=== PATIENT | female | born 1995 | race Hispanic/Latino ===

== ENCOUNTER 2018-11-20 16:02 | Emergency (ER) | payer OTHER ==
[~2018-11-20] VITALS: Ht 160 cm; Wt 77.3 kg
[2018-11-20] MEDS ORDERED: MACR25CA2 PO (16:12)
[2018-11-20] MEDS ORDERED: MAGN400T PO (16:12)
[2018-11-20] MEDS ORDERED: IPRATROPIUM 0.5MG/ALBUTEROL 2.5MG INH SOL UD 3ML (DUONEB)(J7620) NEB ONE (17:15)
[2018-11-20 18:16] LABS: INFLUENZA A AMPLIFICATION NEGATIVE (NEGATIVE); INFLUENZA B AMPLIFICATION NEGATIVE (NEGATIVE)
--- NOTE | 2018-11-20 18:44 | REP ---
Urinary tract sonography: History: Right flank pain. 17 weeks of . Findings: heart rate is recorded at 141 beats per minute. Scanning at the level of the urinary bladder shows no other abnormality. Renal cortical echogenicity pattern is normal and renal contours are smooth on both sides. There is mild right-sided hydronephrosis. No calculus is seen. No left-sided hydronephrosis is noted. No cyst or mass is observed. Right renal dimensions are 10.7 x 5.9 x 4.6 cm. The left kidney measures 11.7 x 5.6 x 5.2 cm. Impression: Mild right-sided hydronephrosis and proximal right hydroureter seen. No stone is visualized. Otherwise negative. Electronically Signed by Jerel Faria MD 11/20/2018 07:23 P
[2018-11-20 18:52] LABS: HEMATOCRIT 37.4 % (36.0-47.0); HEMOGLOBIN 12.6 g/dl (12.0-15.5); MEAN CORPUSCULAR HEMOGLOBIN 29.8 pg (27.0-33.0); MEAN CORPUSCULAR HGB CONC 33.7 g/dl (32.0-36.5); MEAN CORPUSCULAR VOLUME 88.4 fl (80.0-96.0); PLATELET COUNT, AUTOMATED 222 10^3/uL (150-450); RED BLOOD COUNT 4.23 10^6/uL (4.00-5.40); WHITE BLOOD COUNT 9.3 10^3/uL (4.0-10.0)
[2018-11-20 19:03] LABS: ALBUMIN 3.1 GM/DL (3.2-5.2); ALT/SGPT 13 U/L (12-78); BILIRUBIN,DIRECT < 0.1 MG/DL (0.0-0.2); BILIRUBIN,TOTAL 0.3 MG/DL (0.2-1.0); BLOOD UREA NITROGEN 8 MG/DL (7-18); CARBON DIOXIDE LEVEL 26 MEQ/L (21-32); CHLORIDE LEVEL 108 MEQ/L (98-107); CREATININE FOR GFR 0.48 MG/DL (0.55-1.30); GLOMERULAR FILTRATION RATE > 60.0 (>60); GLUCOSE, FASTING 79 MG/DL (70-100); POTASSIUM SERUM 3.7 MEQ/L (3.5-5.1); SODIUM LEVEL 139 MEQ/L (136-145)
[2018-11-20] MEDS ORDERED: NS 1,000 ML IV ONE (19:30)
[2018-11-20] MEDS ORDERED: ACET1TAB55 PO (20:15)
[2018-11-20 20:34] VITALS: BP 127/81
== END 2018-11-20 20:36 | disposition home or self-care (01) ==
LOC: M ED 16:02
DX: O26.832 Pregnancy related renal disease, second trimester (principal); N13.30 Unspecified hydronephrosis; Z3A.17 17 weeks gestation of pregnancy; Z87.440 Personal history of urinary (tract) infections; Z79.2 Long term (current) use of antibiotics; Z79.899 Other long term (current) drug therapy

== ENCOUNTER → 2019-03-18 | Outpatient (CLI) | payer OTHER ==
[~2019-03-18] MED LIST: ACET1TAB55 PO; MACR25CA2 PO; MAGN400T PO
[2019-03-18 14:16] LABS: HEPATITIS C VIRUS ABY INDEX 0.1 INDEX (<0.8); HIV 1&2 SCREEN CENTAUR NEGATIVE (NEGATIVE)
== END ==
LOC: M SMT 09:29
PROVIDERS: ATTEND Advanced Practice Midwife
DX: Z34.83 Encounter for supervision of other normal pregnancy, third trimester (principal); Z3A.00 Weeks of gestation of pregnancy not specified

== ENCOUNTER 2019-04-10 19:46 | Outpatient (CLI) | payer OTHER ==
[~2019-04-10] VITALS: Ht 160 cm; Wt 89.4 kg
[~2019-04-10 19:46] MED LIST changes: +PREN1TAB18 PO
[2019-04-10 20:03] VITALS: BP 117/66
--- NOTE | 2019-04-10 21:12 | IPNPDOC ---
Text Note Date of Service The patient was seen on 04/10/19. NOTE Outpatient 23yo PEG 04/25/19. Presents @ 37w6d with reports of decreased FM and diarrhea. States abdomen has irregular discomfort, periumbilical that radiates to her pelvis. Denies bleeding or LOF. States the pains are irregular and quick, 3-4 x per hour. Reports the diarrhea has been persistent on and off over the past few weeks. NAD, smiling Cat I tracing, rare UC Abdomen soft, gravid, nontender Pt is reassured by movements. Scheduled for 1.5 wks. Rec immodium as directed for diarrhea warnings reviewed. Keep next appt VS,Fishbone, I+O VS, Fishbone, I+O Vital Signs Date Time Temp Pulse Resp B/P (MAP) Pulse Ox O2 Delivery O2 Flow Rate FiO2 04/10/19 20:03 98 18 117/66 (83) Lynette Rodriguez CNM Apr 10, 2019 21:12
[2019-04-20] MEDS ORDERED: PERCOCET PO (09:44)
== END 2019-04-10 21:15 | disposition home or self-care (01) ==
LOC: M LDO 19:46
PROVIDERS: ATTEND Advanced Practice Midwife
DX: O36.8131 Decreased fetal movements, third trimester, fetus 1 (principal); O26.893 Other specified pregnancy related conditions, third trimester; R19.7 Diarrhea, unspecified; Z3A.37 37 weeks gestation of pregnancy
CPT/HCPCS: 59025; G0378; G0463

== ENCOUNTER → 2019-04-14 | Outpatient (REF) | payer OTHER ==
[~2019-04-14] MED LIST changes: +IBUP80TA PO; +PERCOCET PO
== END ==
LOC: M LAB REF 17:06
PROVIDERS: ATTEND Physician Assistant
DX: N94.11 Superficial (introital) dyspareunia (principal)

== ENCOUNTER 2019-04-20 04:53 | Inpatient (IN) | payer OTHER ==
[2019-04-20] VITALS (8 sets, daily range): BP systolic 93–121; BP diastolic 46–67
[~2019-04-20] VITALS: Ht 157.5 cm; Wt 89.7 kg
[~2019-04-20 04:53] MED LIST changes: -IBUP80TA PO; -PERCOCET PO
[2019-04-20] MEDS ORDERED: LR 1,000 ML IV ONE (05:30)
[2019-04-20] MEDS ORDERED: LR 1,000 ML IV SCH ×2 (05:30→10:00)
[2019-04-20] MEDS ORDERED: BICITRA 30ML SOLN UDC PO ONE (05:30)
[2019-04-20 06:18] LABS: HEMATOCRIT 32.5 % (36.0-47.0); MEAN CORPUSCULAR HEMOGLOBIN 30.2 pg (27.0-33.0); MEAN CORPUSCULAR HGB CONC 33.8 g/dl (32.0-36.5); MEAN CORPUSCULAR VOLUME 89.3 fl (80.0-96.0); PLATELET COUNT, AUTOMATED 148 10^3/uL (150-450); RED BLOOD COUNT 3.64 10^6/uL (4.00-5.40); WHITE BLOOD COUNT 7.1 10^3/uL (4.0-10.0)
[2019-04-20] MEDS ORDERED: OXYTOCIN INJ 10 UNITS/ML VIAL (J2590) As Ordered ONE (07:12)
[2019-04-20] MEDS ORDERED: ONDANSETRON 4MG/2ML VIAL (J2405) As Ordered ONE ×2 (07:15→11:37)
[2019-04-20] MEDS ORDERED: dexameTHASONE 4 MG/ML 1ML VIAL (J1100) As Ordered ONE (07:15)
[2019-04-20] MEDS ORDERED: MORPHINE PRES-FREE INJ 10 MG/10 ML VIAL (J2274) As Ordered ONE (07:17)
[2019-04-20] MEDS ORDERED: fentaNYL 100 MCG/2 ML INJECTION (J3010) As Ordered ONE (07:36)
[2019-04-20] MEDS ORDERED: METOCLOPRAMIDE INJ 10MG/2ML VIAL (J2765) IV PRN ×2 (07:48→10:00)
[2019-04-20] MEDS ORDERED: diphenhydrAMINE INJ 50MG/ML VIAL (J1200) IV PRN (07:48)
[2019-04-20] MEDS ORDERED: ONDANSETRON 4MG/2ML VIAL (J2405) IV PRN ×2 (07:48→10:00)
[2019-04-20] MEDS ORDERED: NALOXONE INJ 0.4 MG/1 ML VIAL (J2310) IV PRN ×2 (07:48)
[2019-04-20] MEDS ORDERED: NALBUPHINE HCL 10 MG/ML AMP (J2300) IV PRN (07:48)
[2019-04-20] MEDS ORDERED: PHENYLephrine HCL 500 MCG/5 ML (100MCG/ML) SYRINGE (J2370) As Ordered ONE ×2 (08:42→09:11)
[2019-04-20] MEDS ORDERED: ePHEDrine SULFATE 25 MG/5 ML(5MG/ML) SYRINGE As Ordered ONE (08:43)
[2019-04-20] MEDS ORDERED: MIDAZOLAM INJ 2 MG/2 ML VIAL (J2250) As Ordered ONE (09:05)
[2019-04-20] MEDS ORDERED: KETOROLAC 60 MG/2 ML VIAL (J1885) As Ordered ONE (09:32)
[2019-04-20] MEDS ORDERED: OXYTOCIN DRIP 30 UNITS in APPROPRIATE DILUENT 1 EA IV SCH (09:34)
[2019-04-20] MEDS ORDERED: PERCOCET PO (09:44)
[2019-04-20] MEDS ORDERED: IBUP80TA PO (09:44)
[2019-04-20] MEDS ORDERED: DOCUSATE SODIUM 100 MG CAP PO PRN (09:45)
[2019-04-20] MEDS ORDERED: PERCOCET 5MG/325MG TAB PO PRN ×2 (09:45→10:00)
[2019-04-20] MEDS ORDERED: ACETAMINOPHEN 500 MG TAB PO PRN (09:45)
[2019-04-20] MEDS ORDERED: PROMETHAZINE 25 MG TAB PO PRN (09:45)
[2019-04-20] MEDS ORDERED: MEASLES,MUMPS,RUBELLA VACCINE INJ (MMR-II) (90707) SC SCH (09:45)
[2019-04-20] MEDS ORDERED: RHOGAM 300 MCG (1500 IU) INJ (J2790) IM SCH (09:45)
[2019-04-20] MEDS ORDERED: METOCLOPRAMIDE INJ 10MG/2ML VIAL (J2765) As Ordered ONE (09:57)
[2019-04-20] MEDS ORDERED: fentaNYL 100 MCG/2 ML INJECTION (J3010) IV PRN (10:00)
[2019-04-20] MEDS ORDERED: OXYTOCIN 30 UNITS IN 0.9% NaCl 500ML IV BAG (J2590) As Ordered ONE (10:12)
[2019-04-20 11:12] LABS: HEMATOCRIT 26.3 % (36.0-47.0); MEAN CORPUSCULAR HEMOGLOBIN 30.6 pg (27.0-33.0); MEAN CORPUSCULAR HGB CONC 33.5 g/dl (32.0-36.5); MEAN CORPUSCULAR VOLUME 91.3 fl (80.0-96.0); PLATELET COUNT, AUTOMATED 135 10^3/uL (150-450); RED BLOOD COUNT 2.88 10^6/uL (4.00-5.40)
[2019-04-20 11:19] LABS: HEMOGLOBIN 8.8 g/dl (12.0-15.5)
[2019-04-20 11:23] LABS: INR 1.25; PARTIAL THROMBOPLASTIN TIME 28.8 SECONDS (25.0-38.4); PROTHROMBIN TIME 15.4 SECONDS (11.8-14.0)
[2019-04-20] MEDS: ONDANSETRON 4MG/2ML VIAL (J2405) IV PRN ×3 (11:38→23:28)
[2019-04-20] MEDS: KETOROLAC 30 MG/ML VIAL (J1885) IV SCH ×2 (15:05→21:17)
[2019-04-20] MEDS: LR 1,000 ML IV SCH ×2 (15:05→23:00)
[2019-04-21] VITALS (12 sets, daily range): BP systolic 86–108; BP diastolic 44–71
[2019-04-21] MEDS: KETOROLAC 30 MG/ML VIAL (J1885) IV SCH (03:07)
[2019-04-21] MEDS: PERCOCET 5MG/325MG TAB PO PRN ×5 (04:17→20:17)
[2019-04-21 06:23] LABS: HEMATOCRIT 20.8 % (36.0-47.0); MEAN CORPUSCULAR HEMOGLOBIN 30.7 pg (27.0-33.0); MEAN CORPUSCULAR HGB CONC 33.7 g/dl (32.0-36.5); MEAN CORPUSCULAR VOLUME 91.2 fl (80.0-96.0); PLATELET COUNT, AUTOMATED 126 10^3/uL (150-450); RED BLOOD COUNT 2.28 10^6/uL (4.00-5.40); WHITE BLOOD COUNT 10.2 10^3/uL (4.0-10.0)
[2019-04-21] MEDS: LR 1,000 ML IV SCH (07:00)
--- NOTE | 2019-04-21 07:18 | IPNPDOC ---
Progress Note Date of Service: Apr 21, 2019 Day#: 1 Progress Note SUBJECT: Stephanie is a 23-year-old status post section x4. She has been ambulating, voiding spontaneously without issue and tolerating regular diet. She reports dizziness with movement. Breast feeding without issue. Reports lochia is like a light period. Reports pain is managed. OBJECTIVE: VITAL SIGNS: see below. Alert and oriented times three. Breath sounds clear to auscultation. Heart rate: Regular rate and rhythm, no murmurs, rubs or gallops. Abdomen: Fundus firm at U. Soft, NTTP. Dressing is clean and intact. Minimal lochia. ASSESSMENT: Postoperative day 1; acute postoperative anemia PLAN: 1. Given low blood pressures, CBC, and patient's symptoms she was typed and cross matched for 2 units of blood. Patient has consented with surgery for a blood transfusion. Risks have been reviewed with patient. 2. Continue with supportive nursing care. VS, I&O, 24H, Fishbone Vital Signs/I&O Vital Signs Date Time Temp Pulse Resp B/P (MAP) Pulse Ox O2 Delivery O2 Flow Rate FiO2 04/21/19 06:30 86/44 (58) 04/21/19 06:19 97.4 68 16 04/20/19 22:10 99 I&O- Last 24 Hours up to 6 AM 04/21/19 06:00 Intake Total 1800 ml Output Total 2125 ml Balance -325 ml Laboratory Data 24H LABS Laboratory Tests 2 04/20/19 11:02: Nucleated Red Blood Cells % (auto) 0.0, Prothrombin Time 15.4H, Prothromb Time International Ratio 1.25, Activated Partial Thromboplast Time 28.8, Fibrinogen 356 04/20/19 12:49: Serology Scanned Report Hepatitis B Testing 04/21/19 06:00: Nucleated Red Blood Cells % (auto) 0.0 CBC/BMP Laboratory Tests 04/20/19 11:02 Red Blood Count 2.88 L, Mean Corpuscular Volume 91.3, Mean Corpuscular Hemoglobin 30.6, Mean Corpuscular Hemoglobin Concent 33.5, Red Cell Distribution Width 13.0 04/21/19 06:00 Red Blood Count 2.28 L, Mean Corpuscular Volume 91.2, Mean Corpuscular Hemoglobin 30.7, Mean Corpuscular Hemoglobin Concent 33.7, Red Cell Distribution Width 13.2 TRUNG PATIÑO CNM Apr 21, 2019 07:18
[2019-04-21] MEDS: PRENATAL VITAMINS CHEWABLE TABLET PO SCH (08:17)
[2019-04-21] MEDS: IBUPROFEN 800 MG TAB PO SCH ×2 (10:38→18:46)
[2019-04-21 15:20] LABS: HEMATOCRIT 28.8 % (36.0-47.0); MEAN CORPUSCULAR HEMOGLOBIN 30.6 pg (27.0-33.0); PLATELET COUNT, AUTOMATED 150 10^3/uL (150-450); WHITE BLOOD COUNT 12.9 10^3/uL (4.0-10.0)
[2019-04-21 15:30] LABS: HEMOGLOBIN 9.8 g/dl (12.0-15.5)
[2019-04-22] MEDS: PERCOCET 5MG/325MG TAB PO PRN ×3 (00:26→11:06)
[2019-04-22 02:04] VITALS: BP 97/53
[2019-04-22] MEDS: IBUPROFEN 800 MG TAB PO SCH ×2 (03:35→11:03)
[2019-04-22 06:09] VITALS: BP 105/53
[2019-04-22] MEDS: PRENATAL VITAMINS CHEWABLE TABLET PO SCH (07:06)
--- NOTE | 2019-04-22 14:56 | DSES ---
DATE OF ADMISSION: 04/20/2019 DATE OF DISCHARGE: 04/22/2019 HISTORY: 24-year-old 4, para 3 female at 39-0/7 weeks gestation presents for repeat section as well as tubal ligation. She has a history of three prior sections. HOSPITAL COURSE: The patient was admitted on 04/20/2019 where she underwent a repeat section and tubal ligation, for a 7 pound 3 ounce female infant. Surgery was notable for a peritoneal window in the lower uterine segment with the placenta protruding through. Estimated blood loss was 1000 mL at the time of the procedure. Her postoperative course was significant for anemia with a hemoglobin of 7 g/dL. She received a transfusion of 2 units of blood. Her post transfusion hemoglobin was 9.8 g/dL. She had adequate return of bowel and bladder function. She was deemed stable for discharge on postoperative day 2. ADMISSION DIAGNOSIS: at 39 weeks, prior section times three. DISCHARGE DIAGNOSIS: Delivered. PROCEDURES: Repeat low transverse section. Bilateral tubal ligation. DISPOSITION: Patient to follow-up with Dr. Kim in two weeks. Instructions reviewed.
== END 2019-04-22 11:15 | disposition home or self-care (01) | DRG 784 ==
LOC: M LDI 04:53 → M OBS 12:10
PROVIDERS: ADMIT Obstetrics & Gynecology; ATTEND Obstetrics & Gynecology
PROC: 0UB70ZZ Excision of Bilateral Fallopian Tubes, Open Approach (ICD-10-PCS; 2019-04-20)
PROC: 10D00Z1 Extraction of Products of Conception, Low, Open Approach (ICD-10-PCS; principal; 2019-04-20 07:30)
PROC: 30233N1 Transfusion of Nonautologous Red Blood Cells into Peripheral Vein, Percutaneous Approach (ICD-10-PCS; 2019-04-21)
DX: O34.211 Maternal care for low transverse scar from previous cesarean delivery (principal); D62 Acute posthemorrhagic anemia; Z37.0 Single live birth; Z3A.39 39 weeks gestation of pregnancy; Z30.2 Encounter for sterilization; O99.03 Anemia complicating the puerperium

== ENCOUNTER → 2020-08-16 | Outpatient (CLI) | payer OTHER ==
[~2020-08-16] MED LIST changes: +IBUP80TA PO; -MAGN400T PO; +MAGN400T3 PO; +PERCOCET PO
[2020-08-16 13:43] LABS: BASO % 0.7 % (0.0-1.0); EOS % 0.7 % (0.0-3.0); HEMATOCRIT 41.8 % (36.0-47.0); HEMOGLOBIN 13.2 g/dl (12.0-15.5); LYMPH # 1.4 10^3/uL (1.5-5.0); LYMPH % 29.3 % (24.0-44.0); MEAN CORPUSCULAR HEMOGLOBIN 28.3 pg (27.0-33.0); MEAN CORPUSCULAR HGB CONC 31.6 g/dl (32.0-36.5); MEAN CORPUSCULAR VOLUME 89.7 fl (80.0-96.0); MONO # 0.5 10^3/uL (0.0-0.8); NEUTROPHILS # 2.7 10^3/uL (1.5-8.5); NEUTROPHILS % 59.1 % (36.0-66.0); PLATELET COUNT, AUTOMATED 209 10^3/uL (150-450); RED BLOOD COUNT 4.66 10^6/uL (4.00-5.40); WHITE BLOOD COUNT 4.6 10^3/uL (4.0-10.0)
[2020-08-16 14:17] LABS: ALBUMIN 4.2 GM/DL (3.2-5.2); ALT/SGPT 11 U/L (12-78); BILIRUBIN,TOTAL 0.5 MG/DL (0.2-1.0); BLOOD UREA NITROGEN 8 MG/DL (7-18); CALCIUM LEVEL 9.4 MG/DL (8.5-10.1); CARBON DIOXIDE LEVEL 28 MEQ/L (21-32); CHLORIDE LEVEL 108 MEQ/L (98-107); CREATININE FOR GFR 0.72 MG/DL (0.55-1.30); FERRITIN 36 NG/ML (8-252); FREE T4 1.05 NG/DL (0.76-1.46); GLOMERULAR FILTRATION RATE > 60.0 (>60); GLUCOSE, FASTING 95 MG/DL (70-100); IRON (FE) 88 UG/DL (50-170); PERCENT SATURATION 27.9 % (13.2-45.0); POTASSIUM SERUM 4.8 MEQ/L (3.5-5.1); SODIUM LEVEL 138 MEQ/L (136-145); THYROID STIMULATING HORMONE 0.999 uIU/ML (0.358-3.740); TOTAL IRON BINDING CAPACITY 315 UG/DL (250-450); TOTAL PROTEIN 7.5 GM/DL (6.4-8.2)
[2020-08-16 14:20] LABS: FOLATE 22.9 NG/ML; VITAMIN B12 LEVEL 614 PG/ML
[2020-08-17 21:15] LABS: ANA (HEP2) Negative (.); TISSUE TRANSGLUTAMINASE IgA <2 U/mL (0-3); TISSUE TRANSGLUTAMINASE IgG <2 U/mL (0-5)
== END ==
LOC: M PLALAB 09:21
PROVIDERS: ATTEND Physician Assistant
DX: R53.83 Other fatigue (principal)

== ENCOUNTER → 2020-08-22 | Outpatient (CLI) | payer OTHER ==
--- NOTE | 2020-08-22 14:44 | REPPI ---
INDICATION: M79.672 PAIN IN LEFT FOOT. Stubbing injury 3rd 4th and 5th toes. COMPARISON: None. TECHNIQUE: Four views. FINDINGS: Four views of the left foot demonstrate normal bones, joints, and soft tissues. No fracture or subluxation is seen. No opaque foreign body noted. IMPRESSION: Negative left foot series. <Electronically signed by Fabrice Faria > 08/22/20 3125
== END ==
LOC: M PLAIMG 13:37
PROVIDERS: ATTEND Physician Assistant
DX: M79.672 Pain in left foot (principal)

== ENCOUNTER → 2020-10-06 | Outpatient (REF) | payer OTHER | LOC: M LAB REF 16:42 | PROVIDERS: ATTEND Physician Assistant | DX: R43.9 Unspecified disturbances of smell and taste (principal) ==

== ENCOUNTER 2021-07-28 17:57 | Emergency (ER) | payer OTHER ==
[~2021-07-28] VITALS: Ht 160 cm; Wt 70.9 kg
[~2021-07-28 17:57] MED LIST changes: -CIPR-249 PO; -CIPR250T3 PO; -TRAM50TA2 PO
--- OUTSIDE RECORDS SUMMARY | 2021-07-28 18:13 | CCD | Continuity of Care Document ---
Author Author Regina LOVELL Organization [place] [address] Phone [phone] Care Team Providers Care Treatment Coordinator Name Role Phone Kimberly Galicia D.O. AUTM Eulalia Lugo NP AUTM [phone] Problems Description No Information Available Social History Type Date Description Comments Sex Unknown ETOH Use Denies alcohol use Tobacco Use Start: Unknown Patient has never smoked Recreational Drug Use Denies Drug Use Exercise Type/Frequency Walks daily Sun Exposure Uses sunscreen Seat Belt/Car Seat Always uses seat belt Allergies and adverse reactions Description No Known Drug Allergies Medications Active Medications SIG Qnty Indications Ordering Provide r Date Tablets 1 by lorna th every day Unknown Medications Administered in Office Medication SIG Qnty Indications Ordering Provider Date Injection Ketorolac Tromethamine Per 15 MG (Toradol) Injection SIDDHARTHA Belcher 10/06/2020 Injection Ketorolac Tromethamine Per 15 MG (Toradol) Injection SIDDHARTHA Belcher 10/06/2020 Immunizations Description No Information Available Vital Signs Date Vital Result Comment 06/28/2021 2:23pm BP Systolic 128 mmHg BP Diastolic 68 mmHg Height 61.0 inches 5'1" Weight 167.38 lb BMI (Body Mass Index) 31.6 kg/m2 Heart Rate 88 /min Respiratory Rate 12 /min Body Temperature 98.2 F O2 % BldC Oximetry 98 % [place] Body Weight 105 lb 06/06/2021 1:22pm BP Systolic 118 mmHg BP Diastolic 76 mmHg Height 61.0 inches 5'1" Weight 165.00 lb BMI (Body Mass Index) 31.2 kg/m2 Heart Rate 76 /min Respiratory Rate 20 /min Body Temperature 98.6 F O2 % BldC Oximetry 99 % [place] Body Weight 105 lb Results Description No Information Available Procedures Date Code Description Status 06/28/2021 09416 Office/Outpatient Established Lo w MDM 20-29 Min Completed 06/06/2021 47278 Preventive Visit Est 18-39 Yrs C ompleted 05/12/2021 00675 Office/Outpatient Established Lo w MDM 20-29 Min Completed Medical Devices Description No Information Available Encounters Type Date Location Provider Dx Diagnosis Office Visit 06/28/2021 2:30p [facility] SIDDHARTHA Turcios L65.9 Nonscarring hair loss, unspe cified R51.9 Headache, unspecified R42 Dizziness and giddiness F53.0 depression G47.8 Other sleep disorders Office Visit 06/06/2021 1:15p [facility] SIDDHARTHA Turcios Z00.00 Encntr for general adult med ical exam w/o abnormal findings Office Visit 05/12/2021 11:00a [facility] SIDDHARTHA Turcios L72.0 Epidermal cyst Assessments Date Code Description Provider 06/28/2021 L65.9 Nonscarring hair loss, unspecifi ed SIDDHARTHA Turcios 06/28/2021 R51.9 Headache, unspecified SIDDHARTHA Scruggs 06/28/2021 R42 Dizziness and giddiness SIDDHARTHA Turcios 06/28/2021 F53.0 depression SIDDHARTHA Scruggs 06/28/2021 G47.8 Other sleep disorders SIDDHARTHA Scruggs 06/06/2021 Z00.00 Encounter for genera l adult medical examination without abnormal findings SIDDHARTHA Turcios 05/12/2021 L72.0 Epidermal cyst SIDDHARTHA Turcios Plan of Treatment Future Appointment(s):* 01/16/2022 10:00 am - SIDDHARTHA Turcios at [facility] * 07/06/2021 2:00 pm - Kimberly Galicia D.O. at [facility] Functional Status Description No Information Available Mental Status Description No Information Available Referrals Description No Information Available
--- OUTSIDE RECORDS SUMMARY | 2021-07-28 18:13 | CCD | Continuity of Care Document ---
Author Author Regina LOVELL Organization Unknown [place] [address] Phone [phone] Care Team Providers Care Traffic Personnel Supervisor Name Role Phone Kimberly Galicia D.O. AUTM [phone] Eulalia Lugo NP AUTM [phone] Problems Description No Information Available Social History [...] F O2 % BldC Oximetry 98 % [place] Body Weight 105 lb 06/06/2021 1:22pm BP Systolic 118 mmHg BP Diastolic 76 mmHg Height 61.0 inches 5'1" Weight 165.00 lb BMI (Body Mass Index) 31.2 kg/m2 Heart Rate 76 /min Respiratory Rate 20 /min Body Temperature 98.6 F O2 % BldC Oximetry 99 % [place] Body Weight 105 lb Results Description No Information Available Procedures Date Code Description Status 06/28/2021 29107 Office/Outpatient Established Lo w MDM 20-29 Min Completed 06/06/2021 19699 Preventive Visit Est 18-39 Yrs C ompleted 05/12/2021 30005 Office/Outpatient Established Lo w MDM 20-29 Min Completed Medical Devices Description No Information Available Encounters Type Date Location Provider Dx Diagnosis Office Visit 06/28/2021 2:30p [facility] SIDDHARTHA Turcios L65.9 Nonscarring hair loss, unspe cified R51.9 Headache, unspecified R42 Dizziness and giddiness F53.0 depression G47.8 Other sleep disorders Office Visit 06/06/2021 1:15p [facility] SIDDHARTHA Turcios Z00.00 Encntr for general adult med ical exam w/o abnormal findings Office Visit 05/12/2021 11:00a [facility] SIDDHARTHA Turcios L72.0 Epidermal cyst Assessments [...] 01/16/2022 10:00 am - SIDDHARTHA Turcios at [facility] * 07/06/2021 2:00 pm - Kimberly Galicia D.O. at [facility] Functional Status Description No Information Available Mental Status Description No Information Available Referrals Description No Information Available
--- OUTSIDE RECORDS SUMMARY | 2021-07-28 18:13 | CCD | Continuity of Care Document ---
Author Author Regina LOVELL Organization [place] [address] Phone [phone] Care Team Providers Care Radiologist Name Role Phone Kimberly Galicia D.O. AUTM [phone] Eulalia Lugo NP AUTM [phone] Problems Description No Information Available Social History Type Date Description Comments Sex Unknown ETOH Use Denies alcohol use Tobacco Use Start: Unknown Patient has never smoked Recreational Drug Use Denies Drug Use Exercise Type/Frequency Walks daily Sun Exposure Uses sunscreen Seat Belt/Car Seat Always uses seat belt Allergies, Adverse Reactions, Alerts Description No Known Drug Allergies Medications Active [...] Available Vital Signs Date Vital Result Comment 06/06/2021 1:22pm BP Systolic 118 mmHg BP Diastolic 76 mmHg Height 61.0 inches 5'1" Weight 165.00 lb BMI (Body Mass Index) 31.2 kg/m2 Heart Rate 76 /min Respiratory Rate 20 /min Body Temperature 98.6 F O2 % BldC Oximetry 99 % [place] Body Weight 105 lb 05/12/2021 11:05am BP Systolic 114 mmHg BP Diastolic 72 mmHg Height 61.0 inches 5'1" Weight 163.25 lb BMI (Body Mass Index) 30.8 kg/m2 Heart Rate 77 /min Respiratory Rate 18 /min Body Temperature 99.1 F O2 % BldC Oximetry 100 % [place] Body Weight 105 lb Results Description No Information Available Procedures Date Code Description Status 06/06/2021 60448 Preventive Visit Est 18-39 Yrs C ompleted 05/12/2021 81503 Office/Outpatient Established Lo w MDM 20-29 Min Completed 12/27/2020 60417 Office/Outpatient Established Lo w MDM 20-29 Min Completed Medical Devices Description No Information Available Encounters Type Date Location Provider Dx Diagnosis Office Visit 06/06/2021 1:15p [facility] SIDDHARTHA Turcios Z00.00 Encntr for general adult med ical exam w/o abnormal findings Office Visit 05/12/2021 11:00a [facility] SIDDHARTHA Turcios L72.0 Epidermal cyst Office Visit 12/27/2020 2:30p [facility] SIDDHARTHA Turcios L65.9 Nonscarring hair loss, unspe cified Assessments Date Code Description Provider 06/06/2021 Z00.00 Encounter for genera l adult medical examination without abnormal findings SIDDHARTHA Turcios 05/12/2021 L72.0 Epidermal cyst SIDDHARTHA Turcios 12/27/2020 L65.9 Nonscarring hair loss, unspecifi ed SIDDHARTHA Turcios Plan of Treatment Future Appointment(s):* 01/16/2022 10:00 am - SIDDHARTHA Turcios at [facility] * 07/06/2021 2:00 pm - Kimberly Galicia D.O. at [facility] Functional Status Description No Information Available Mental Status Description No Information Available Referrals Refer to Reason for Referral Status Appt Date Eulalia Lugo NP Regina has diffuse hair th inning to the scalp and has tried Spironolactone, and many other OTC supplements without improvement. Please evaluate and treat. Closed [facility] [address], [address] [facility] [address] [place] [address] [phone]
--- OUTSIDE RECORDS SUMMARY | 2021-07-28 18:13 | CCD | Continuity of Care Document ---
Author Author Regina LOVELL Organization [place] [address] Phone [phone] Care Team Providers Care Mobile Product Manager Name Role Phone Kimberly Galicia D.O. AUTM Eulalia Lugo NP AUTM [phone] Problems Description No Information Available Social History [...] F O2 % BldC Oximetry 98 % [place] Body Weight 105 lb 06/06/2021 1:22pm BP Systolic 118 mmHg BP Diastolic 76 mmHg Height 61.0 inches 5'1" Weight 165.00 lb BMI (Body Mass Index) 31.2 kg/m2 Heart Rate 76 /min Respiratory Rate 20 /min Body Temperature 98.6 F O2 % BldC Oximetry 99 % [place] Body Weight 105 lb Results Description No Information Available Procedures Date Code Description Status 06/28/2021 17008 Office/Outpatient Established Lo w MDM 20-29 Min Completed 06/06/2021 73085 Preventive Visit Est 18-39 Yrs C ompleted 05/12/2021 37158 Office/Outpatient Established Lo w MDM 20-29 Min Completed Medical Devices Description No Information Available Encounters Type Date Location Provider Dx Diagnosis Office Visit 06/28/2021 2:30p [facility] SIDDHARTHA Turcios L65.9 Nonscarring hair loss, unspe cified R51.9 Headache, unspecified R42 Dizziness and giddiness F53.0 depression G47.8 Other sleep disorders Office Visit 06/06/2021 1:15p [facility] SIDDHARTHA Turcios Z00.00 Encntr for general adult med ical exam w/o abnormal findings Office Visit 05/12/2021 11:00a [facility] SIDDHARTHA Turcios L72.0 Epidermal cyst Assessments [...] Turcios at [facility] * 07/06/2021 2:00 pm - Kimberly Galicia D.O. at [facility] Functional Status Description No Information Available Mental Status Description No Information Available Referrals Description No Information Available
--- OUTSIDE RECORDS SUMMARY | 2021-07-28 18:14 | CCD | Continuity of Care Document ---
Author Author Regina LOVELL Organization [place] [address] Phone [phone] Care Team Providers Care Weatherization And Housing Inspector Name Role Phone Kimberly Galicia D.O. AUTM [phone] Eulalia Lugo NP AUTM [phone] Problems Description No Information Available Social History [...] F O2 % BldC Oximetry 99 % [place] Body Weight 105 lb 05/12/2021 11:05am BP Systolic 114 mmHg BP Diastolic 72 mmHg Height 61.0 inches 5'1" Weight 163.25 lb BMI (Body Mass Index) 30.8 kg/m2 Heart Rate 77 /min Respiratory Rate 18 /min Body Temperature 99.1 F O2 % BldC Oximetry 100 % [place] Body Weight 105 lb Results Description No Information Available Procedures Date Code Description Status 06/06/2021 47293 Preventive Visit Est 18-39 Yrs C ompleted 05/12/2021 14986 Office/Outpatient Established Lo w MDM 20-29 Min Completed 12/27/2020 23489 Office/Outpatient Established Lo w MDM 20-29 Min Completed Medical Devices Description No Information Available Encounters Type Date Location Provider Dx Diagnosis Office Visit 06/06/2021 1:15p Family [facility] SIDDHARTHA Turcios Z00.00 Encntr for general adult med ical exam w/o abnormal findings Office Visit 05/12/2021 11:00a [facility] SIDDHARTHA Turcios L72.0 Epidermal cyst Office Visit 12/27/2020 2:30p [facility] SIDDHARTHA Turcios L65.9 Nonscarring hair loss, unspe cified Assessments Date Code Description Provider 06/06/2021 Z00.00 Encounter for genera l adult medical examination without abnormal findings SIDDHARTHA Turcios 05/12/2021 L72.0 Epidermal cyst SIDDHARTHA Turcios 12/27/2020 L65.9 Nonscarring hair loss, unspecifi ed SIDDHARTHA Turcios Plan of Treatment Future Appointment(s):* 01/16/2022 10:00 am - SIDDHARTHA Turcios at [facility] * 07/06/2021 2:00 pm - Kimberly Galicia D.O. at [facility] 06/06/2021 - SIDDHARTHA Turcios* Z00.00 Encounter for general adult medical examination without abnormal findings* Comments:* normal exam * Follow up:* PAP with and January before PCS Functional Status Description No Information Available Mental Status Description No Information Available Referrals Refer to Reason for Referral Status Appt Date Eulalia Lugo NP Regina has diffuse hair th inning to the scalp and has tried Spironolactone, and many other OTC supplements without improvement. Please evaluate and treat. Closed [facility] [address], [address] [facility] [address] [place] [address] [phone]
--- OUTSIDE RECORDS SUMMARY | 2021-07-28 18:14 | CCD | Continuity of Care Document ---
Author Regina Villegas Organization [place] [address] Phone [phone] Care Team Providers Care Recycling Manager Name Role Phone Kimberly Galicia D.O. AUTM Eulalia Lugo NP AUTM [phone] Problems Description No Information Available Social History [...] SIG Qnty Indications Ordering Provide r Date Butalbital/Acetaminophen/Caffeine 50-325-40mg Capsules Take one to two tablets by mouth ever 6 hours as needed for relief of migraine. 30caps Kimberly Galicia D.O. 10/07 Spironolactone 50mg Tablets 1 by mouth every day 90tabs L65.9 Kimberly Galicia D.O. 09/28 Meclizine HCL 12.5mg Tablets take 1-2 tablets by mouth ever 8 hours as needed for dizziness 90tabs R42 Kimberly Irwin D.O. 08/15/2020 Tablets 1 by lorna th every day Unknown Magnesium 400mg Tablets take one tablet by mouth before bed. Unknown Biotin 5mg Capsules Unknown Medications Administered in Office Medication SIG Qnty Indications Ordering Provider Date Injection Ketorolac Tromethamine Per 15 MG (Toradol) Injection SIDDHARTHA Belcher 10/06/2020 Injection Ketorolac Tromethamine Per 15 MG (Toradol) Injection SIDDHARTHA Belcher 10/06/2020 Immunizations Description No Information Available Vital Signs Date Vital Result Comment 05/12/2021 11:05am BP Systolic 114 mmHg BP Diastolic 72 mmHg Height 61.0 inches 5'1" Weight 163.25 lb BMI (Body Mass Index) 30.8 kg/m2 Heart Rate 77 /min Respiratory Rate 18 /min Body Temperature 99.1 F O2 % BldC Oximetry 100 % [place] Body Weight 105 lb 12/27/2020 2:30pm BP Systolic 108 mmHg BP Diastolic 70 mmHg Height 61.0 inches 5'1" Weight 152.38 lb BMI (Body Mass Index) 28.8 kg/m2 Heart Rate 78 /min Respiratory Rate 18 /min Body Temperature 97.8 F O2 % BldC Oximetry 99 % [place] Body Weight 105 lb Results Description No Information Available Procedures Date Code Description Status 05/12/2021 11591 Office/Outpatient Established Lo w MDM 20-29 Min Completed 12/27/2020 86964 Office/Outpatient Established Lo w MDM 20-29 Min Completed Medical Devices Description No Information Available Encounters Type Date Location Provider Dx Diagnosis Office Visit 05/12/2021 11:00a Family [facility] SIDDHARTHA Turcios L72.0 Epidermal cyst Office Visit 12/27/2020 2:30p [facility] SIDDHARTHA Turcios L65.9 Nonscarring hair loss, unspe cified Assessments Date Code Description Provider 05/12/2021 L72.0 Epidermal cyst SIDDHARTHA Turcios 12/27/2020 L65.9 Nonscarring hair loss, unspecifi ed SIDDHARTHA Turcios Plan of Treatment 05/12/2021 - SIDDHARTHA Turcios* L72.0 Epidermal cyst* Comments:* Small cyst punctured with needle and cyst decompressed. Please dressing in place for the next few hours before removing Functional Status Description No Information Available Mental Status Description No Information Available Referrals Refer to Reason for Referral Status Appt Date Eulalia Lguo NP Regina has diffuse hair th inning to the scalp and has tried Spironolactone, and many other OTC supplements without improvement. Please evaluate and treat. Closed [facility] [address], [address] [facility] [address] [place] [address] [phone]
--- OUTSIDE RECORDS SUMMARY | 2021-07-28 18:14 | CCD ---
Author Author [facility] Organization [facility] Address Unknown Phone Unavailable Care Team Providers Care Cattle Killer Name Role Phone O'lazara, A Jordan PA Unavailable Unavailable O'lazara, A Jordan PA Unavailable Unavailable O'lazara, A Jordan PA Unavailable Unavailable O'lazara, A Jordan PA Unavailable Unavailable O'lazara, A Jordan PA Unavailable Unavailable O'lazara, A Jordan PA Unavailable Unavailable O'lazara, A Jordan PA Unavailable Unavailable O'lazara, A Jordan PA Unavailable Unavailable O'lazara, A Jordan PA Unavailable Unavailable O'lazara, A Jordan PA Unavailable Unavailable O'lazara, A Jordan PA Unavailable Unavailable O'lazara, A Jordan PA Unavailable Unavailable O'lazara, A Jordan PA Unavailable Unavailable O'lazara, A Jordan PA Unavailable Unavailable O'lazara, A Jordan PA Unavailable Unavailable O'lazara, A Jordan PA Unavailable Unavailable O'lazara, A Jordan PA Unavailable Unavailable O'lazara, A Jordan PA Unavailable Unavailable O'lazara, A Jordan PA Unavailable Unavailable O'lazara, A Jordan PA Unavailable Unavailable O'lazara, A Jordan PA Unavailable Unavailable O'lazara, A Jordan PA Unavailable Unavailable O'lazara, A Jordan PA Unavailable Unavailable O'lazara, A Jordan PA Unavailable Unavailable O'lazara, A Jordan PA Unavailable Unavailable O'lazara, A Jordan PA Unavailable Unavailable O'lazara, A Jordan PA Unavailable Unavailable O'lazara, A Jordan PA Unavailable Unavailable O'lazara, A Jordan PA Unavailable Unavailable O'lazara, A Jordan PA Unavailable Unavailable O'lazara, A Jordan PA Unavailable Unavailable O'lazara, A Jordan PA Unavailable Unavailable O'lazara, A Jordan PA Unavailable Unavailable Re-disclosure Warning The records that you are about to access may contain information from federally-assisted alcohol or drug abuse programs. If such information is present, then the following federally mandated warning applies: This information has been disclosed to you from records protected by federal confidentiality rules (42 CFR part 2). The federal rules prohibit you from making any further disclosure of this information unless further disclosure is expressly permitted by the written consent of the person to whom it pertains or as otherwise permitted by 42 CFR part 2. A general authorization for the release of medical or other information is NOT sufficient for this purpose. The Federal rules restrict any use of the information to criminally investigate or prosecute any alcohol or drug abuse patient.The records that you are about to access may contain highly sensitive health information, the redisclosure of which is protected by Article 27-F of the [facility] Public Health law. If you continue you may have access to information: Regarding HIV / AIDS; Provided by facilities licensed or operated by the [facility] Office of Mental Health; or Provided by the [facility] Office for People With Developmental Disabilities. If such information is present, then the following [facility] mandated warning applies: This information has been disclosed to you from confidential records which are protected by state law. State law prohibits you from making any further disclosure of this information without the specific written consent of the person to whom it pertains, or as otherwise permitted by law. Any unauthorized further disclosure in violation of state law may result in a fine or custodial sentence or both. A general authorization for the release of medical or other information is NOT sufficient authorization for further disc losure. Family History Family Member Name Family Member Gender Family Member Status Date o f Status Description Data Source(s) Unknown Male Problem [facility] ([facility]) Encounters Encounter Providers Location Date Indications Data Source(s ) Outpatient Attender: Jordan CARL [facility] 06/28/2021 02:30:00 PM EDT [facility] ([facility]) Outpatient Attender: Jordan CARL [facility] 06/06/2021 01:15:00 PM EDT [facility] ([facility]) Outpatient Attender: Jordan CARL [facility] 05/12/2021 11:00:00 AM EDT [facility] ([facility]) Outpatient Attender: Jordan CARL [facility] 12/27/2020 02:30:00 PM EDT [facility] ([facility]) Outpatient Attender: Jordan CARL [facility] 10/06/2020 02:50:00 PM EST [facility] ([facility]) Outpatient Attender: Jordan CARL [facility] 09/28/2020 12:30:00 PM EST [facility] ([facility]) Outpatient Attender: Jordan CARL [facility] 08/22/2020 12:00:00 PM EST [facility] ([facility]) Outpatient Attender: Jordan CARL [facility] 08/15/2020 01:00:00 PM EST [facility] ([facility]) Medications Medication Brand Name Start Date Product Form Dose Route Admi nistrative Instructions Pharmacy Instructions Status Indications Reaction Description Data Source(s) Acetaminophen 325 MG / butalbital 50 MG / Caffeine 40 MG Oral Capsule Butalbital/Acetaminophen/Caffeine 10/07/2020 12:00:00 AM EST ORAL active [facility] ([facility]) Injection Ketorolac Tromethamine Per 15 MG (Toradol) 10/06/2020 12:00:00 AM EST completed [facility] ([facility]) Medication administered onsite Injection Ketorolac Tromethamine Per 15 MG (Toradol) 10/06/2020 12:00:00 AM EST completed [facility] ([facility]) Medication administered onsite Zolpidem tartrate 10 MG Oral Tablet [Ambien] Ambien 12:00:00 AM EST ORAL completed [facility] ([facility]) Spironolactone 50 MG Oral Tablet Spironolactone 09/28/2020 12:00:00 A M EST ORAL active [facility] ([facility]) No Active Medications 08/15/2020 12:00:00 AM EST completed [facility] ([facility]) Meclizine Hydrochloride 12.5 MG Oral Tablet Meclizine HCL 08/15/2020 12:00:00 AM EST ORAL active [facility] ([facility]) Insurance Providers Payer name Policy type / Coverage type Policy ID Covered libertarian ID Covered libertarian's relationship to crowell Policy Crowell Plan Information [facility] [id number] [facility] Commercial [id number] Self [id number] [facility] [id number] [facility] [id number] Problems, Conditions, and Diagnoses No Information Surgeries/Procedures Procedure Description Date Indications Data Source(s) OFFICE OUTPATIENT VISIT 15 MINUTES 06/28/2021 12:00:00 AM EDT [facility] ([facility]) PERIODIC PREVENTIVE MED EST PATIENT 18-39 YRS 06/06/20 12:00:00 AM EDT [facility] ([facility]) OFFICE OUTPATIENT VISIT 15 MINUTES 05/12/2021 12:00:00 AM EDT [facility] ([facility]) OFFICE OUTPATIENT VISIT 15 MINUTES 12/27/2020 12:00:00 AM EDT [facility] ([facility]) Remove Impact Cerumen Irrigati 08/15/2020 12:00:00 AM EST [facility] ([facility]) Results ID Date Data Source [id number] 10/06/2020 03:20:00 PM EST [facility] ([facility]) Name Value Range Interpretation Code Description Data Zeynep rce(s) Supporting Document(s) Respiratory Panel Laboratory test result [facility] ([facility]) This respiratory PCR panel detects Influ tip A H1, H3 and 2009 H1 viruses, Influenza B virus, Resp iratory Syncytial Virus, Human metapneumovirus, Parainfluenza virus 1, 2, 3 and 4, Adenovirus, Rhinovirus/Enterovirus, Coronavirus HKU1, NL63, OC43, 229E and SARS-CoV-2 (COVID 19), Bordetella pertussis, Bordetella parapertussis, Mycoplasma pneumoniae and Chlamydia pneumoniae. NEGATIVE by MULTIPLEXED NUCLEIC ACID PCR SARS-CoV-2 (COVID 19) NEGATIVE - SARS-CoV-2 (COVID19) ID Date Data Source [id number] 10/06/2020 03:20:00 PM EST [facility] Name Value Range Interpretation Code Description Data Zeynep rce(s) Supporting Document(s) SARS-CoV-2 (COVID 19) NEGATIVE - SARS-CoV-2 (COVID19) [facility] This lab was ordered by [facility] a nd reported by [facility]. ID Date Data Source [id number] 08/16/2020 01:55:00 PM EST [facility] ([facility]) Name Value Range Interpretation Code Description Data Zeynep rce(s) Supporting Document(s) Tissue transglutaminase IgG Ab [Units/volume] in Serum Labor atory test result 0-5 Normal (applies to non-numeric results) [facility] ([facility]) Negative 0 - 5 Weak Positive 6 - 9 Positive >9 Tissue transglutaminase IgA Ab [Units/volume] in Serum Labor atory test result 0-3 Normal (applies to non-numeric results) [facility] ([facility]) Negative 0 - 3 Weak Positive 4 - 10 Positive >10 . Tissue Transglutaminase (tTG) has been identified as the endomysial antigen. Studies have demonstr- ated that endomysial IgA antibodies have over 99% specificity for gluten sensitive enteropathy. IgA [Mass/volume] in Serum or Plasma 306.0 mg/dL 70-400 Normal (applies to non- numeric results) [facility] ([facility]) ID Date Data Source [id number] 08/16/2020 01:55:00 PM EST [facility] ([facility]) Name Value Range Interpretation Code Description Data Zeynep rce(s) Supporting Document(s) Vitamin B12 Level 614 pg/mL Normal (applies to non-numeri c results) [facility] ([facility]) VITAMIN B12 NORMAL RANGE NORMAL 247 - 911 PG/ML INDETERMINATE 211 - 246 PG/ML DEFICIENT LESS THAN 211 PG/ML Folate 22.9 ng/mL Normal (applies to non-numeric resul ts) [facility] ([facility]) FOLATE NORMAL RANGE NORMAL GREATER THAN 5.4 NG/ML INDETERMINATE 3.4-5.4 NG/ML DEFICIENT LESS THAN 3.4 NG/ML ID Date Data Source [id number] 08/16/2020 01:55:00 PM EST [facility] ([facility]) Name Value Range Interpretation Code Description Data Zeynep rce(s) Supporting Document(s) Aspen (Hep2) Laboratory test result Normal (applies to non-n umeric results) [facility] ([facility]) <content>Negative <1:80</content>
<content>Borderline 1:80</content>
<content>Positive >1:80</content>
<content>Performed at: [facility]</content>
<content>[address], [place] [id number]</content>
<content>[employer]: Dulce Contreras MD, Phone: [phone]</content>
<content></content> ID Date Data Source [id number] 08/16/2020 01:55:00 PM EST [facility] ([facility]) Name Value Range Interpretation Code Description Data Zeynep rce(s) Supporting Document(s) Thyroid Stimulating Hormone 0.999 uIU/ML 0.358-3.740 Norm al (applies to non- numeric results) [facility] ([facility]) Free T4 1.05 ng/dL 0.76-1.46 Normal (applies to non-numeric resul ts) [facility] ([facility]) ID Date Data Source [id number] 08/16/2020 01:55:00 PM EST [facility] ([facility]) Name Value Range Interpretation Code Description Data Zeynep rce(s) Supporting Document(s) Ferritin [Mass/volume] in Serum or Plasma 36 ng/mL 8-252 Normal (applies to non- numeric results) [facility] ([facility]) ID Date Data Source [id number] 08/16/2020 01:55:00 PM EST [facility] ([facility]) Name Value Range Interpretation Code Description Data Zeynep rce(s) Supporting Document(s) Iron (Fe) 88 ug/dL 50-170 Normal (applies to non-numeric resul ts) [facility] ([facility]) Total Iron Binding Capacity 315 ug/dL 250-450 Norm al (applies to non-numeric results) [facility] ([facility]) Percent Saturation 27.9 % 13.2-45.0 Normal (applies to non-numer ic results) [facility] ([facility]) ID Date Data Source [id number] 08/16/2020 01:55:00 PM EST [facility] ([facility]) Name Value Range Interpretation Code Description Data Zeynep rce(s) Supporting Document(s) Blood Urea Nitrogen 8 mg/dL 7-18 Normal (applies to non-nume pratik results) [facility] ([facility]) Glucose, Fasting 95 mg/dL 70-100 Normal (applies to non-numeric results) [facility] ([facility]) Glomerular Filtration Rate Laboratory test result Normal (applies to non- numeric results) [facility] ([facility]) <content>Units are mL/min/1.73 m2</content>
<content></content>
<content>Chronic Kidney Disease Staging per NKF:</content>
<content></content>
<content>Stage I & II GFR >=60 Normal to Mildly Decreased</content>
<content>Stage III GFR 30- 59 Moderately Decreased</content>
<content>Stage IV GFR 15-29 Severely Decreased</content>
<content>Stage V GFR <15 Very Little GFR Left</content>
<content>ESRD GFR <15 on INTERNAL CONTROLS MANAGER</content>
<content></content> Creatinine For GFR 0.72 mg/dL 0.55-1.30 Normal (applies to non -numeric results) [facility] ([facility]) Sodium Level 138 meq/L 136-145 Normal (applies to non-numeric res ults) [facility] ([facility]) Potassium Serum 4.8 meq/L 3.5-5.1 Normal (applies to non-numeric results) [facility] ([facility]) Carbon Dioxide Level 28 meq/L 21-32 Normal (applies to non-num ron results) [facility] ([facility]) Chloride Level 108 meq/L 98-107 Above high normal [facility] ([facility]) Calcium Level 9.4 mg/dL 8.5-10.1 Normal (applies to non-numeric re sults) [facility] ([facility]) Anion Gap 2 meq/L 8-16 Below low normal [facility] ( [facility]) Ast/Sgot 12 U/L 7-37 Normal (applies to non-numeric resul ts) [facility] ([facility]) Alt/SGPT 11 U/L 12-78 Below low normal [facility] ( [facility]) Bilirubin,Total 0.5 mg/dL 0.2-1.0 Normal (applies to non-numeric results) [facility] ([facility]) Alkaline Phosphatase 56 U/L 45-117 Normal (applies to non-num ron results) [facility] ([facility]) Albumin 4.2 GM/DL 3.2-5.2 Normal (applies to non-numeric resul ts) [facility] ([facility]) Total Protein 7.5 GM/DL 6.4-8.2 Normal (applies to non-numeric re sults) [facility] ([facility]) Albumin/Globulin Ratio 1.3 1.2-2.2 Normal (applies to non-n umeric results) [facility] ([facility]) ID Date Data Source [id number] 08/16/2020 01:55:00 PM EST [facility] ([facility]) Name Value Range Interpretation Code Description Data Zeynep rce(s) Supporting Document(s) White Blood Count 4.6 10 4.0-10.0 Normal (applies to non-numeri c results) [facility] ([facility]) Red Blood Count 4.66 10 4.00-5.40 Normal (applies to non-numeric results) [facility] ([facility]) Hematocrit 41.8 % 36.0-47.0 Normal (applies to non-numeric resul ts) [facility] ([facility]) Hemoglobin 13.2 g/dL 12.0-15.5 Normal (applies to non-numeric resul ts) [facility] ([facility]) Mean Corpuscular Volume 89.7 fl 80.0-96.0 Normal ( applies to non-numeric results) [facility] ([facility]) Mean Corpuscular Hemoglobin 28.3 pg 27.0-33.0 Norm al (applies to non-numeric results) [facility] ([facility]) Mean Corpuscular HGB Conc 31.6 g/dL 32.0-36.5 Below low normal [facility] ([facility]) Red Cell Distribution Width 13.7 % 11.5-14.5 Norm al (applies to non-numeric results) [facility] ([facility]) Platelet Count, Automated 209 10 150-450 Normal (applies to non-numeric results) [facility] ([facility]) Neutrophils % 59.1 % 36.0-66.0 Normal (applies to non-numeric re sults) [facility] ([facility]) Eos % 0.7 % 0.0-3.0 Normal (applies to non-numeric resul ts) [facility] ([facility]) Lymph % 29.3 % 24.0-44.0 Normal (applies to non-numeric resul ts) [facility] ([facility]) Isabella % 10.0 % 0.0-5.0 Above high normal [facility] ([facility]) Immature Granulocyte % 0.2 % 0-3.0 Normal (applies to non-n umeric results) [facility] ([facility]) Baso % 0.7 % 0.0-1.0 Normal (applies to non-numeric resul ts) [facility] ([facility]) Neutrophils # 2.7 10 1.5-8.5 Normal (applies to non-numeric re sults) [facility] ([facility]) Nucleated Red Blood Cell % 0.0 % 0-0 Normal (applies to n on-numeric results) [facility] ([facility]) Lymph # 1.4 10 1.5-5.0 Below low normal [facility] ( [facility]) Isabella # 0.5 10 0.0-0.8 Normal (applies to non-numeric resul ts) [facility] ([facility]) Baso # 0.0 10 0.0-0.2 Normal (applies to non-numeric resul ts) [facility] ([facility]) Eos # 0.0 10 0.0-0.5 Normal (applies to non-numeric resul ts) [facility] ([facility]) Procedure Social History No Information Vital Signs ID Date Data Source UNK Name Value Range Interpretation Code Description Data Source(s) Systolic blood pressure 110 mm[Hg] 110 mm[Hg] M [facility] ([facility]) Diastolic blood pressure 74 mm[Hg] 74 mm[Hg] [facility] ([facility]) Heart rate 135 /min 135 /min [facility] ([facility]) Respiratory rate 18 /min 18 /min [facility] ( [facility]) Oxygen saturation in Arterial blood by Pulse oximetry 97 % 97 % [facility] ([facility]) Body temperature 102.4 [degF] 102.4 [degF] MEDE NT ([facility]) Body weight 165.00 [lb_av] 165.00 [lb_av] MED[facility] T ([facility]) Body height 64 [in_i] 64 [in_i] [facility] ([facility]) 5'4" Body mass index (BMI) [Ratio] 28.3 kg/m2 28.3 k g/m2 [facility] ([facility]) Systolic blood pressure 128 mm[Hg] 128 mm[Hg] M [facility] ([facility]) Diastolic blood pressure 68 mm[Hg] 68 mm[Hg] [facility] ([facility]) Body height 61.0 [in_i] 61.0 [in_i] [facility] ([facility]) 5'1" Body weight 167.38 [lb_av] 167.38 [lb_av] [facility] T ([facility]) Body mass index (BMI) [Ratio] 31.6 kg/m2 31.6 k g/m2 [facility] ([facility]) Body temperature 98.2 [degF] 98.2 [degF] [facility] ([facility]) Oxygen saturation in Arterial blood by Pulse oximetry 98 % 98 % [facility] ([facility]) [place] body weight 105 [lb_av] 105 [lb_av] [facility] T ([facility]) Heart rate 88 /min 88 /min [facility] ([facility]) Respiratory rate 12 /min 12 /min [facility] ( [facility]) Body height 61.0 [in_i] 61.0 [in_i] [facility] ([facility]) 5'1" Body weight 165.00 [lb_av] 165.00 [lb_av] [facility] ([facility]) Body mass index (BMI) [Ratio] 31.2 kg/m2 31.2 k g/m2 [facility] ([facility]) Heart rate 76 /min 76 /min [facility] ([facility]) Respiratory rate 20 /min 20 /min [facility] ( [facility]) Body temperature 98.6 [degF] 98.6 [degF] [facility] ([facility]) Oxygen saturation in Arterial blood by Pulse oximetry 99 % 99 % [facility] ([facility]) [place] body weight 105 [lb_av] 105 [lb_av] [facility] T ([facility]) Systolic blood pressure 118 mm[Hg] 118 mm[Hg] M [facility]ENT ([facility]) Diastolic blood pressure 76 mm[Hg] 76 mm[Hg] [facility] ([facility]) Systolic blood pressure 114 mm[Hg] 114 mm[Hg] M [facility] ([facility]) Diastolic blood pressure 72 mm[Hg] 72 mm[Hg] [facility] ([facility]) Body height 61.0 [in_i] 61.0 [in_i] [facility] ([facility]) 5'1" Body weight 163.25 [lb_av] 163.25 [lb_av] [facility] T ([facility]) Body mass index (BMI) [Ratio] 30.8 kg/m2 30.8 k g/m2 [facility] ([facility]) Heart rate 77 /min 77 /min [facility] ([facility]) Respiratory rate 18 /min 18 /min [facility] ( [facility]) Body temperature 99.1 [degF] 99.1 [degF] [facility] ([facility]) Oxygen saturation in Arterial blood by Pulse oximetry 100 % 100 % [facility] ([facility]) [place] body weight 105 [lb_av] 105 [lb_av] [facility] T ([facility]) Systolic blood pressure 108 mm[Hg] 108 mm[Hg] M [facility] ([facility]) Diastolic blood pressure 70 mm[Hg] 70 mm[Hg] [facility] ([facility]) Body height 61.0 [in_i] 61.0 [in_i] [facility] ([facility]) 5'1" Body weight 152.38 [lb_av] 152.38 [lb_av] [facility] T ([facility]) Body mass index (BMI) [Ratio] 28.8 kg/m2 28.8 k g/m2 [facility] ([facility]) Heart rate 78 /min 78 /min [facility] ([facility]) Respiratory rate 18 /min 18 /min [facility] ( [facility]) Body temperature 97.8 [degF] 97.8 [degF] [facility] ([facility]) Oxygen saturation in Arterial blood by Pulse oximetry 99 % 99 % [facility] ([facility]) [place] body weight 105 [lb_av] 105 [lb_av] [facility] T ([facility]) Respiratory rate 18 /min 18 /min [facility] ( [facility]) Body temperature 98.7 [degF] 98.7 [degF] [facility] ([facility]) Oxygen saturation in Arterial blood by Pulse oximetry 99 % 99 % [facility] ([facility]) [place] body weight 105 [lb_av] 105 [lb_av] [facility] T ([facility]) Systolic blood pressure 120 mm[Hg] 120 mm[Hg] M [facility] ([facility]) Diastolic blood pressure 80 mm[Hg] 80 mm[Hg] [facility] ([facility]) Body height 61.0 [in_i] 61.0 [in_i] [facility] ([facility]) 5'1" Heart rate 73 /min 73 /min [facility] ([facility]) Heart rate 76 /min 76 /min [facility] ([facility]) Respiratory rate 18 /min 18 /min [facility] ( [facility]) Body temperature 98.5 [degF] 98.5 [degF] [facility] ([facility]) Oxygen saturation in Arterial blood by Pulse oximetry 99 % 99 % [facility] ([facility]) [place] body weight 105 [lb_av] 105 [lb_av] MEDEN T ([facility]) Systolic blood pressure 122 mm[Hg] 122 mm[Hg] M [facility] ([facility]) Diastolic blood pressure 76 mm[Hg] 76 mm[Hg] [facility] ([facility]) Body height 61.0 [in_i] 61.0 [in_i] [facility] ([facility]) 5'1" Body weight 146.38 [lb_av] 146.38 [lb_av] [facility] T ([facility]) Body mass index (BMI) [Ratio] 27.7 kg/m2 27.7 k g/m2 [facility] ([facility]) Body weight 139.00 [lb_av] 139.00 [lb_av] [facility] T ([facility]) Body mass index (BMI) [Ratio] 26.3 kg/m2 26.3 k g/m2 [facility] ([facility]) Heart rate 90 /min 90 /min [facility] ([facility]) Respiratory rate 18 /min 18 /min [facility] ( [facility]) Body temperature 98.9 [degF] 98.9 [degF] [facility] ([facility]) Oxygen saturation in Arterial blood by Pulse oximetry 99 % 99 % [facility] ([facility]) [place] body weight 105 [lb_av] 105 [lb_av] [facility] T ([facility]) Systolic blood pressure 108 mm[Hg] 108 mm[Hg] M [facility] ([facility]) Diastolic blood pressure 64 mm[Hg] 64 mm[Hg] [facility] ([facility]) Body height 61.0 [in_i] 61.0 [in_i] [facility] ([facility]) 5'1" Systolic blood pressure 126 mm[Hg] 126 mm[Hg] M ENT ([facility]) Diastolic blood pressure 68 mm[Hg] 68 mm[Hg] [facility] ([facility]) Body height 61.0 [in_i] 61.0 [in_i] YANA ([facility]) 5'1" Body weight 140.50 [lb_av] 140.50 [lb_av] DANIEL Hernández ([facility]) Body mass index (BMI) [Ratio] 26.5 kg/m2 26.5 k g/m2 [facility] ([facility]) Heart rate 89 /min 89 /min YANA ([facility]) Respiratory rate 18 /min 18 /min [facility] Body temperature 98.7 [degF] 98.7 [degF] YANA ([facility]) Oxygen saturation in Arterial blood by Pulse oximetry 99 % 99 % [facility] ([facility]) [place] body weight 105 [lb_av] 105 [lb_av] DANIEL Hernández ([facility])
[2021-07-28] MEDS ORDERED: NS 1,000 ML IV ONE ×2 (19:10→20:15)
[2021-07-28] MEDS ORDERED: ACETAMINOPHEN 500 MG TAB PO ONE (19:10)
[2021-07-28 19:38] LABS: BASO % 0.1 % (0.0-1.0); HEMATOCRIT 32.6 % (36.0-47.0); LYMPH # 0.3 10^3/uL (1.5-5.0); LYMPH % 1.5 % (24.0-44.0); MEAN CORPUSCULAR HEMOGLOBIN 28.6 pg (27.0-33.0); MEAN CORPUSCULAR HGB CONC 33.7 g/dl (32.0-36.5); MEAN CORPUSCULAR VOLUME 84.9 fl (80.0-96.0); MONO # 1.9 10^3/uL (0.0-0.8); MONO % 9.9 % (2.0-8.0); NEUTROPHILS # 16.7 10^3/uL (1.5-8.5); NEUTROPHILS % 87.2 % (36.0-66.0); PLATELET COUNT, AUTOMATED 134 10^3/uL (150-450); RED BLOOD COUNT 3.84 10^6/uL (4.00-5.40); WHITE BLOOD COUNT 19.1 10^3/uL (4.0-10.0)
[2021-07-28 20:10] LABS: ALT/SGPT 28 U/L (12-78); BILIRUBIN,DIRECT 0.3 MG/DL (0.0-0.2); BILIRUBIN,TOTAL 0.8 MG/DL (0.2-1.0); HCG, SERUM QUANTITATIVE < 1.0 MIU/ML; LIPASE 67 U/L (73-393); TOTAL PROTEIN 6.7 GM/DL (6.4-8.2)
[2021-07-28 20:14] LABS: APPEARANCE, URINE CLOUDY (CLEAR); BACTERIA, URINE AUTO NEGATIVE (NEGATIVE); BILIRUBIN, URINE AUTO NEGATIVE (NEGATIVE); BLOOD, URINE BLOOD 1+ (NEGATIVE); COLOR, URINE AMBER (YELLOW); GLUCOSE, URINE (UA) AUTO NEGATIVE (NEGATIVE); KETONE, URINE AUTO 1+ mg/dL (NEGATIVE); LEUKOCYTE ESTERASE, URINE AUTO 3+ (NEGATIVE); NITRITE, URINE AUTO NEGATIVE (NEGATIVE); PROTEIN, URINE AUTO 3+ mg/dL (NEGATIVE); RBC, URINE AUTO 21 /HPF (0-3); SPECIFIC GRAVITY URINE AUTO 1.015 (1.002-1.035); SQUAMOUS EPITHELIAL CELL UR AU 1 /HPF (0-6); TRANSITIONAL EPITHELIAL AUTO 3 /HPF; WBC, URINE AUTO TNTC /HPF (0-3)
[2021-07-28] MEDS ORDERED: cefTRIAXone SOD 1 GM in D5W MINI-BAG PLUS 50 ML IV ONE (20:15)
[2021-07-28] MEDS ORDERED: KETOROLAC 30 MG/ML 1ML VIAL IV ONE (20:15)
[2021-07-28] MEDS ORDERED: ISOVUE-370 76% 100ML VIAL As Ordered ONE (20:18)
[2021-07-28] MEDS ORDERED: KCL 10MEQ/100ML SWI (KRUN) 10 MEQ in IV 1 EA IV ONE (20:20)
--- OUTSIDE RECORDS SUMMARY | 2021-07-28 20:28 | CCD ---
Author Author [facility] Organization [facility] Address Unknown Phone Unavailable Care Team Providers Care Barrel Bung Remover And Dumper Name Role Phone Richter Nirmala [employer] PROFESSIONAL Unavailable Unavailable Richter, Inrmala [employer] PROFESSIONAL Unavailable Unavailable Richter, Nirmala [employer] PROFESSIONAL Unavailable Unavailable Richter, Nirmala [employer] PROFESSIONAL Unavailable Unavailable Richter, Nirmala [employer] PROFESSIONAL Unavailable Unavailable Richter, Nirmala [employer] PROFESSIONAL Unavailable Unavailable Richter, Nirmala [employer] PROFESSIONAL Unavailable Unavailable Richter, Nirmala [employer] PROFESSIONAL Unavailable Unavailable Richter, Nirmala [employer] PROFESSIONAL Unavailable Unavailable Richter, Nirmala [employer] PROFESSIONAL Unavailable Unavailable Richter, Nirmala [employer] PROFESSIONAL Unavailable Unavailable Richter, Nirmala [employer] PROFESSIONAL Unavailable Unavailable Richter, Nirmala [employer] PROFESSIONAL Unavailable Unavailable O'lazara, A Jordan PA Unavailable [...] is protected by Article 27-F of the [facility] Public Health law. If you continue you may have access to information: Regarding HIV / AIDS; Provided by facilities licensed or operated by the [facility] Office of Mental Health; or Provided by the [facility] Office for People With Developmental Disabilities. If such information is present, then the following [facility] mandated warning applies: This information has been [...] law may result in a fine or usp sentence or both. A general authorization for the release of medical or other information is NOT sufficient authorization for further disc losure. Family History Family Member Name Family Member Gender Family Member Status Date o f Status Description Data Source(s) Unknown Male Problem [facility] ([facility]) Encounters Encounter Providers Location Date Indications Data Source(s ) Outpatient Attender: Nirmala Richter NP Ana Simnó Carla reese 07/28/2021 12:20:00 PM EST [facility] ([facility] Outpatient Attender: Jordan CARL [facility] 06/28/2021 02:30:00 PM EDT [facility] ([facility]) Outpatient Attender: Jordan CARL [facility] 06/06/2021 01:15:00 PM EDT [facility] ([facility]) Outpatient Attender: Jordan CARL [facility] 05/12/2021 11:00:00 AM EDT [facility] ([facility]) Outpatient Attender: Jordan CARL [facility] 12/27/2020 02:30:00 PM EDT [facility] ([facility]) Outpatient Attender: Jordan CARL [facility] 10/06/2020 02:50:00 PM EST [facility] ([facility]) Outpatient Attender: Jordan CARL [facility] 09/28/2020 12:30:00 PM EST [facility] ([facility]) Outpatient Attender: Jordan CARL [facility] 08/22/2020 12:00:00 PM EST [facility] ([facility]) Outpatient Attender: Jordan CALR [facility] 08/15/2020 01:00:00 PM EST [facility] ([facility]) Medications Medication Brand Name Start Date Product Form Dose Route Admi nistrative Instructions Pharmacy Instructions Status Indications Reaction Description Data Source(s) Acetaminophen 325 MG / butalbital 50 MG / Caffeine 40 MG Oral Capsule Butalbital/Acetaminophen/Caffeine 10/07/2020 12:00:00 AM EST ORAL active [facility] ([facility]) Injection Ketorolac Tromethamine Per 15 MG (Toradol) 10/06/2020 12:00:00 AM EST completed [facility] ([facility]) Medication administered onsite Injection Ketorolac Tromethamine Per 15 MG (Toradol) 10/06/2020 12:00:00 AM EST completed [facility] ([facility]) Medication administered onsite Zolpidem tartrate 10 MG Oral Tablet [Ambien] Ambien 12:00:00 AM EST ORAL completed [facility] ([facility]) Spironolactone 50 MG Oral Tablet Spironolactone 09/28/2020 12:00:00 A M EST ORAL active [facility] ([facility]) No Active Medications 08/15/2020 12:00:00 AM EST completed [facility] ([facility]) Meclizine Hydrochloride 12.5 MG Oral Tablet Meclizine HCL 08/15/2020 12:00:00 AM EST ORAL active [facility] ([facility]) Insurance Providers Payer name Policy type / Coverage type Policy ID Covered alliance party ID Covered alliance party's relationship to crowell Policy Crowell Plan Information [facility] [id number] [facility] Commercial [id number] [facility] [id number] [facility] [id number] [facility] [id number] Problems, Conditions, and Diagnoses No Information Surgeries/Procedures Procedure Description Date Indications Data Source(s) OFFICE OUTPATIENT NEW 30 MINUTES 07/28/2021 12:00:00 A M EST [facility] ([facility]) OFFICE OUTPATIENT VISIT 15 MINUTES 06/28/2021 12:00:00 AM EDT [facility] ([facility]) PERIODIC PREVENTIVE MED EST PATIENT 18-39 YRS 06/06/20 12:00:00 AM EDT [facility] ([facility]) OFFICE OUTPATIENT VISIT 15 MINUTES 05/12/2021 12:00:00 AM EDT [facility] ([facility]) OFFICE OUTPATIENT VISIT 15 MINUTES 12/27/2020 12:00:00 AM EDT [facility] ([facility]) Remove Impact Cerumen Irrigati 08/15/2020 12:00:00 AM EST [facility] ([facility]) Results ID Date Data Source [id number] 07/28/2021 05:29:00 PM EST [facility] ([facility]) Name Value Range Interpretation Code Description Data Zeynep rce(s) Supporting Document(s) Bacteria identified in Urine by Culture Laboratory test result [place] ([facility]) ID Date Data Source [id number] 10/06/2020 03:20:00 PM EST [facility] Name Value Range Interpretation Code Description Data Zeynep rce(s) Supporting Document(s) Respiratory Panel Laboratory test result [place] ([facility]) This respiratory PCR panel detects Influ [...] - SARS-CoV-2 (COVID19) ID Date Data Source [id number] 10/06/2020 03:20:00 PM EST [facility] Name Value Range Interpretation Code Description Data Zeynep rce(s) Supporting Document(s) SARS-CoV-2 (COVID 19) NEGATIVE - SARS-CoV-2 (COVID19) [facility] This lab was ordered by [facility] a nd reported by [facility]. ID Date Data Source [id number] 08/16/2020 01:55:00 PM EST [place] ([facility]) Name Value Range Interpretation Code Description Data Zeynep rce(s) Supporting Document(s) Tissue transglutaminase IgG Ab [Units/volume] in Serum Labor atory test result 0-5 Normal (applies to non-numeric results) [facility] Negative 0 - 5 Weak Positive 6 - 9 Positive >9 Tissue transglutaminase IgA Ab [Units/volume] in Serum Labor atory test result 0-3 Normal (applies to non-numeric results) [place] ([facility]) Negative 0 - 3 Weak Positive 4 - 10 Positive >10 . Tissue Transglutaminase (tTG) has been identified as the endomysial antigen. Studies have demonstr- ated that endomysial IgA antibodies have over 99% specificity for gluten sensitive enteropathy. IgA [Mass/volume] in Serum or Plasma 306.0 mg/dL 70-400 Normal (applies to non- numeric results) [facility] ([facility]) ID Date Data Source [id number] 08/16/2020 01:55:00 PM EST [facility] ([facility]) Name Value Range Interpretation Code Description Data Zeynep rce(s) Supporting Document(s) Vitamin B12 Level 614 pg/mL Normal (applies to non-numeri c results) [facility] ([facility]) VITAMIN B12 NORMAL RANGE NORMAL 247 - 911 PG/ML INDETERMINATE 211 - 246 PG/ML DEFICIENT LESS THAN 211 PG/ML Folate 22.9 ng/mL Normal (applies to non-numeric resul ts) [facility] FOLATE NORMAL RANGE NORMAL GREATER THAN 5.4 NG/ML INDETERMINATE 3.4-5.4 NG/ML DEFICIENT LESS THAN 3.4 NG/ML ID Date Data Source [id number] 08/16/2020 01:55:00 PM EST [facility] ([facility]) Name Value Range Interpretation Code Description Data Zeynep rce(s) Supporting Document(s) [place] (Hep2) Laboratory test result Normal (applies to non-n umeric results) [place] ([facility]) <content>Negative <1:80</content>
<content>Borderline 1:80</content>
<content>Positive >1:80</content>
<content>Performed at: [facility]</content>
<content>[address] [place] [address] [phone]</content>
<content>Environmental Sampler: Dulce Contreras MD, Phone: [phone]</content>
<content></content> ID Date Data Source [id number] 08/16/2020 01:55:00 PM EST [facility] ([facility]) Name Value Range Interpretation Code Description Data Zeynep rce(s) Supporting Document(s) Thyroid Stimulating Hormone 0.999 uIU/ML 0.358-3.740 Norm al (applies to non- numeric results) [facility] ([facility]) Free T4 1.05 ng/dL 0.76-1.46 Normal (applies to non-numeric resul ts) [facility] ID Date Data Source [id number] 08/16/2020 01:55:00 PM EST [facility] ([facility]) Name Value Range Interpretation Code Description Data Zeynep rce(s) Supporting Document(s) Ferritin [Mass/volume] in Serum or Plasma 36 ng/mL 8-252 Normal (applies to non- numeric results) [facility]) ID Date Data Source [id number] 08/16/2020 01:55:00 PM EST [facility] ([facility]) Name Value Range Interpretation Code Description Data Zeynep rce(s) Supporting Document(s) Iron (Fe) 88 ug/dL 50-170 Normal (applies to non-numeric resul ts) [facility] Total Iron Binding Capacity 315 ug/dL 250-450 Norm al (applies to non-numeric results) [facility]) Percent Saturation 27.9 % 13.2-45.0 Normal (applies to non-numer ic results) [place] ([facility]) ID Date Data Source [id number] 08/16/2020 01:55:00 PM EST [facility] ([facility]) Name Value Range Interpretation Code Description Data Zeynep rce(s) Supporting Document(s) Blood Urea Nitrogen 8 mg/dL 7-18 Normal (applies to non-nume pratik results) [facility]) Glucose, Fasting 95 mg/dL 70-100 Normal (applies to non-numeric results) [place] ([facility]) Glomerular Filtration Rate Laboratory test result Normal (applies to non- numeric results) [place] ([facility]) <content>Units are mL/min/1.73 m2</content>
<content></content>
<content>Chronic Kidney Disease Staging per NKF:</content>
<content></content>
<content>Stage I & II GFR >=60 Normal to Mildly Decreased</content>
<content>Stage III GFR 30- 59 Moderately Decreased</content>
<content>Stage IV GFR 15-29 Severely Decreased</content>
<content>Stage V GFR <15 Very Little GFR Left</content>
<content>ESRD GFR <15 on CLASSIFYING MACHINE OPERATOR</content>
<content></content> Creatinine For GFR 0.72 mg/dL 0.55-1.30 Normal (applies to non -numeric results) [facility] ([facility]) Sodium Level 138 meq/L 136-145 Normal (applies to non-numeric res ults) [facility] Potassium Serum 4.8 meq/L 3.5-5.1 Normal (applies to non-numeric results) [place] ([facility]) Carbon Dioxide Level 28 meq/L 21-32 Normal (applies to non-num ron results) [place] ([facility]) Chloride Level 108 meq/L 98-107 Above high normal [facility] ([facility]) Calcium Level 9.4 mg/dL 8.5-10.1 Normal (applies to non-numeric re sults) [facility] Anion Gap 2 meq/L 8-16 Below low normal [place] ( [facility]) Ast/Sgot 12 U/L 7-37 Normal (applies to non-numeric resul ts) [place] ([facility]) Alt/SGPT 11 U/L 12-78 Below low normal [place] ( [facility]) Bilirubin,Total 0.5 mg/dL 0.2-1.0 Normal (applies to non-numeric results) [facility]) Alkaline Phosphatase 56 U/L 45-117 Normal (applies to non-num ron results) [place] ([facility]) Albumin 4.2 GM/DL 3.2-5.2 Normal (applies to non-numeric resul ts) [facility]) Total Protein 7.5 GM/DL 6.4-8.2 Normal (applies to non-numeric re sults) [place] ([facility]) Albumin/Globulin Ratio 1.3 1.2-2.2 Normal (applies to non-n umeric results) [place] ([facility]) ID Date Data Source [id number] 08/16/2020 01:55:00 PM EST [facility] ([facility]) Name Value Range Interpretation Code Description Data Zeynep rce(s) Supporting Document(s) White Blood Count 4.6 10 4.0-10.0 Normal (applies to non-numeri c results) [facility] ([facility]) Red Blood Count 4.66 10 4.00-5.40 Normal (applies to non-numeric results) [facility] ([facility]) Hematocrit 41.8 % 36.0-47.0 Normal (applies to non-numeric resul ts) [facility] ([facility]) Hemoglobin 13.2 g/dL 12.0-15.5 Normal (applies to non-numeric resul ts) [facility] ([facility]) Mean Corpuscular Volume 89.7 fl 80.0-96.0 Normal ( applies to non-numeric results) [facility] Mean Corpuscular Hemoglobin 28.3 pg 27.0-33.0 Norm al (applies to non-numeric results) [facility]) Mean Corpuscular HGB Conc 31.6 g/dL 32.0-36.5 Below low normal [facility]) Red Cell Distribution Width 13.7 % 11.5-14.5 Norm al (applies to non-numeric results) [facility] ([facility]) Platelet Count, Automated 209 10 150-450 Normal (applies to non-numeric results) [facility] ([facility]) Neutrophils % 59.1 % 36.0-66.0 Normal (applies to non-numeric re sults) [facility] ([facility]) Eos % 0.7 % 0.0-3.0 Normal (applies to non-numeric resul ts) [facility] ([facility]) Lymph % 29.3 % 24.0-44.0 Normal (applies to non-numeric resul ts) [facility] ([facility]) [place] % 10.0 % 0.0-5.0 Above high normal [facility] ([facility]) Immature Granulocyte % 0.2 % 0-3.0 Normal (applies to non-n umeric results) [facility] ([facility]) Baso % 0.7 % 0.0-1.0 Normal (applies to non-numeric resul ts) [facility] ([facility]) Neutrophils # 2.7 10 1.5-8.5 Normal (applies to non-numeric re sults) [facility] ([facility]) Nucleated Red Blood Cell % 0.0 % 0-0 Normal (applies to n on-numeric results) [facility] ([facility]) Lymph # 1.4 10 1.5-5.0 Below low normal [facility] ( [facility]) [place] # 0.5 10 0.0-0.8 Normal (applies to non-numeric resul ts) [facility] ([facility]) Baso # 0.0 10 0.0-0.2 Normal (applies to non-numeric resul ts) [facility] ([facility]) Eos # 0.0 10 0.0-0.5 Normal (applies to non-numeric resul ts) [facility] ([facility]) Procedure Social History No Information Vital Signs ID Date Data Source UNK Name Value Range Interpretation Code Description Data Source(s) Systolic blood pressure 110 mm[Hg] 110 mm[Hg] M [facility] ([facility], [facility]) Diastolic blood pressure 74 mm[Hg] 74 mm[Hg] [facility] ([facility], [facility]) Oxygen saturation in Arterial blood by Pulse oximetry 97 % 97 % [facility]) Body temperature 102.4 [degF] 102.4 [degF] MEDE NT ([facility], [facility]) Body weight 165.00 [lb_av] 165.00 [lb_av] [facility] T ([facility], [facility]) Body height 64 [in_i] 64 [in_i] [facility] ([facility]) 5'4" Body mass index (BMI) [Ratio] 28.3 kg/m2 28.3 k g/m2 [facility] ([facility], [facility]) Heart rate 135 /min 135 /min [facility] ([facility]) Respiratory rate 18 /min 18 /min [facility] ( [facility]) Systolic blood pressure 128 mm[Hg] 128 mm[Hg] M [facility] ([facility]) Diastolic blood pressure 68 mm[Hg] 68 mm[Hg] [facility] ([facility]) Body height 61.0 [in_i] 61.0 [in_i] [facility] ([facility]) 5'1" Body weight 167.38 [lb_av] 167.38 [lb_av] [facility] T ([facility]) Body mass index (BMI) [Ratio] 31.6 kg/m2 31.6 k g/m2 [facility] ([facility]) Body temperature 98.2 [degF] 98.2 [degF] [facility] ([facility]) Oxygen saturation in Arterial blood by Pulse oximetry 98 % 98 % [facility] ([facility]) Heart rate 88 /min 88 /min [facility] ([facility]) Respiratory rate 12 /min 12 /min [facility] ( [facility]) [place] body weight 105 [lb_av] 105 [lb_av] [facility] T ([facility]) [place] body weight 105 [lb_av] 105 [lb_av] [facility] T ([facility]) Systolic blood pressure 118 mm[Hg] 118 mm[Hg] M [facility] ([facility]) Diastolic blood pressure 76 mm[Hg] 76 mm[Hg] [facility] ([facility]) Body height 61.0 [in_i] 61.0 [in_i] [facility] ([facility]) 5'1" Body weight 165.00 [lb_av] 165.00 [lb_av] [facility] T ([facility]) Body mass index (BMI) [Ratio] 31.2 kg/m2 31.2 k g/m2 [facility] ([facility]) Heart rate 76 /min 76 /min [facility] ([facility]) Respiratory rate 20 /min 20 /min [facility] ( [facility]) Body temperature 98.6 [degF] 98.6 [degF] [facility] ([facility]) Oxygen saturation in Arterial blood by Pulse oximetry 99 % 99 % [facility] ([facility]) Systolic blood pressure 114 mm[Hg] 114 mm[Hg] M [facility] ([facility]) Diastolic blood pressure 72 mm[Hg] 72 mm[Hg] [facility] ([facility]) Body height 61.0 [in_i] 61.0 [in_i] [facility] ([facility]) 5'1" Body weight 163.25 [lb_av] 163.25 [lb_av] [facility] T ([facility]) Body mass index (BMI) [Ratio] 30.8 kg/m2 30.8 k g/m2 [facility] ([facility]) Heart rate 77 /min 77 /min [facility] ([facility]) Respiratory rate 18 /min 18 /min [facility] ( [facility]) Body temperature 99.1 [degF] 99.1 [degF] [facility] ([facility]) Oxygen saturation in Arterial blood by Pulse oximetry 100 % 100 % [facility] [place] body weight 105 [lb_av] 105 [lb_av] [facility] T ([facility]) Heart rate 78 /min 78 /min [facility] ([facility]) Systolic blood pressure 108 mm[Hg] 108 mm[Hg] M [facility] ([facility]) Diastolic blood pressure 70 mm[Hg] 70 mm[Hg] [facility] ([facility]) Body height 61.0 [in_i] 61.0 [in_i] [facility] ([facility]) 5'1" Body weight 152.38 [lb_av] 152.38 [lb_av] [facility] T ([facility]) Respiratory rate 18 /min 18 /min [facility] ( [facility]) Body temperature 97.8 [degF] 97.8 [degF] [facility] ([facility]) [place] body weight 105 [lb_av] 105 [lb_av] [facility] T ([facility]) Body mass index (BMI) [Ratio] 28.8 kg/m2 28.8 k g/m2 [facility] ([facility]) Oxygen saturation in Arterial blood by Pulse oximetry 99 % 99 % [facility] ([facility]) Respiratory rate 18 /min 18 /min [facility] ( [facility]) Body temperature 98.7 [degF] 98.7 [degF] [facility] ([facility]) Oxygen saturation in Arterial blood by Pulse oximetry 99 % 99 % [facility] ([facility]) [place] body weight 105 [lb_av] 105 [lb_av] [facility] T ([facility]) Systolic blood pressure 120 mm[Hg] 120 mm[Hg] M [facility] ([facility]) Diastolic blood pressure 80 mm[Hg] 80 mm[Hg] [facility] ([facility]) Body height 61.0 [in_i] 61.0 [in_i] [facility] ([facility]) 5'1" Heart rate 73 /min 73 /min [facility] ([facility]) Heart rate 76 /min 76 /min [facility] ([facility]) Respiratory rate 18 /min 18 /min [facility] ( [facility]) Body temperature 98.5 [degF] 98.5 [degF] [facility] ([facility]) Systolic blood pressure 122 mm[Hg] 122 mm[Hg] M [facility] ([facility]) Diastolic blood pressure 76 mm[Hg] 76 mm[Hg] [facility] ([facility]) Body height 61.0 [in_i] 61.0 [in_i] [facility] ([facility]) 5'1" Body weight 146.38 [lb_av] 146.38 [lb_av] [facility] T ([facility]) Oxygen saturation in Arterial blood by Pulse oximetry 99 % 99 % [facility] ([facility]) [place] body weight 105 [lb_av] 105 [lb_av] [facility] T ([facility]) Body mass index (BMI) [Ratio] 27.7 kg/m2 27.7 k g/m2 [facility] ([facility]) Body weight 139.00 [lb_av] 139.00 [lb_av] [facility] T ([facility]) Body mass index (BMI) [Ratio] 26.3 kg/m2 26.3 k g/m2 [facility] ([facility]) Heart rate 90 /min 90 /min [facility] ([facility]) Respiratory rate 18 /min 18 /min [facility] ( [facility]) Body temperature 98.9 [degF] 98.9 [degF] [facility] ([facility]) Oxygen saturation in Arterial blood by Pulse oximetry 99 % 99 % [facility] ([facility]) [place] body weight 105 [lb_av] 105 [lb_av] [facility] T ([facility]) Systolic blood pressure 108 mm[Hg] 108 mm[Hg] [facility] [facility] Diastolic blood pressure 64 mm[Hg] 64 mm[Hg] [facility] ([facility]) Body height 61.0 [in_i] 61.0 [in_i] [facility] ([facility]) 5'1" Oxygen saturation in Arterial blood by Pulse oximetry 99 % 99 % [facility] ([facility]) [place] body weight 105 [lb_av] 105 [lb_av] MEDEN T ([facility]) Systolic blood pressure 126 mm[Hg] 126 mm[Hg] M EDENT ([facility]) Diastolic blood pressure 68 mm[Hg] 68 mm[Hg] [facility] ([facility]) Body height 61.0 [in_i] 61.0 [in_i] [facility] ([facility]) 5'1" Body weight 140.50 [lb_av] 140.50 [lb_av] MEDEN T ([facility]) Body mass index (BMI) [Ratio] 26.5 kg/m2 26.5 k g/m2 [facility] ([facility]) Heart rate 89 /min 89 /min [facility] ([facility]) Respiratory rate 18 /min 18 /min [facility] ( [facility]) Body temperature 98.7 [degF] 98.7 [degF] [facility] ([facility])
--- NOTE | 2021-07-28 21:05 | REPVR ---
PROCEDURE INFORMATION: Exam: CT Abdomen And Pelvis With Contrast Exam date and time: 07/28/2021 8:29 PM Age: 25 years old Clinical indication: Abdominal tenderness; Additional info: Bilat CVA tenderness, concern pyelonephritis TECHNIQUE: Imaging protocol: Computed tomography of the abdomen and pelvis with contrast. Radiation optimization: All CT scans at this facility use at least one of these dose optimization techniques: automated exposure control; mA and/or kV adjustment per patient size (includes targeted exams where dose is matched to clinical indication); or iterative reconstruction. Contrast material: ISOVUE 370; Contrast volume: 100 ml; Contrast route: INTRAVENOUS (IV); COMPARISON: RENAL US 11/20/2018 6:04 PM FINDINGS: Liver: The liver at mid clavicular line measures 15.8 cm. There is low attenuation adjacent to the falciform ligament of the liver consistent with focal fatty infiltration. Gallbladder and bile ducts: Normal. No calcified stones. No ductal dilation. Pancreas: Normal. No ductal dilation. Spleen: Normal. No splenomegaly. Adrenal glands: Normal. No mass. Kidneys and ureters: Patchy enhancement of the right kidney with right perinephric edema consistent with pyelonephritis. There is slight enhancement of the urothelium of the renal pelvis consistent with UTI. Probable right renal cyst measuring 10 x 14 mm. Stomach and bowel: Unremarkable. No obstruction. No mucosal thickening. Appendix: There are no changes of appendicitis. A normal appendix is not seen. Intraperitoneal space: Trace fluid in the cul-de-sac which is physiologic. Trace fluid in the caudal aspect of the right pericolic gutter which is probably related to the adjacent edema within the pararenal fascia. Vasculature: Unremarkable. No abdominal aortic aneurysm. Lymph nodes: Unremarkable. No enlarged lymph nodes. Urinary bladder: There is mild urinary bladder wall thickening with slight perivesicular induration consistent with cystitis. Reproductive: Unremarkable as visualized. Bones/joints: Unremarkable. No acute fracture. Soft tissues: Unremarkable. IMPRESSION: 1. Right pyelonephritis with evidence of a UTI and probable cystitis. 2. Otherwise negative CT abdomen/pelvis. COMMENTS: Consistent with the [employer]'s Incidental Findings Committee white paper (J Am Driss Radiol 2018): Any incidental renal lesion less than 1 cm or classified as too small to characterize, or any incidental cystic renal lesion characterized as simple-appearing, is likely benign. No follow-up imaging is recommended for these lesions per consensus recommendations based on imaging criteria. Electronically signed by: Duong Mckinney On 07/28/2021 21:04:20 PM
[2021-07-28] MEDS ORDERED: CIPR-249 PO (21:19)
[2021-07-28] MEDS ORDERED: KETOROLAC TROMETHAMINE 10 MG TAB PO ONE (22:20)
[2021-07-28 22:35] VITALS: BP 95/55
== END 2021-07-28 22:42 | disposition home or self-care (01) ==
LOC: M ED 17:57
DX: N10 Acute pyelonephritis (principal); N30.00 Acute cystitis without hematuria
CPT/HCPCS: 74177; 80076; 81001; 83605; 83690; 84702; 85025; 87040; 87077; 87088; 87186; 96361; 96365; 96366; 96367; 96375; 99284; J0696; J1885; J3480; Q9967

== ENCOUNTER → 2021-07-28 | Outpatient (REF) | payer OTHER ==
[~2021-07-28] MED LIST changes: +CIPR-249 PO; +CIPR250T3 PO; -MAGN400T3 PO; +MAGN400T33 PO; +TRAM50TA2 PO
== END ==
LOC: M WUC 19:35
PROVIDERS: ATTEND Nurse Practitioner Family
DX: R30.0 Dysuria (principal); R50.9 Fever, unspecified

== ENCOUNTER 2021-07-31 20:26 | Inpatient (IN) | payer OTHER ==
[~2021-07-31] VITALS: Ht 160 cm; Wt 72.7 kg
[~2021-07-31 20:26] MED LIST changes: -CIPR250T3 PO; -TRAM50TA2 PO
--- OUTSIDE RECORDS SUMMARY | 2021-07-31 20:33 | CCD | Continuity of Care Document ---
Author Author Cherelle AVALOS ORCHID SUPERINTENDENT Organization Unknown Address [address] [place] [address] [place] [address] Phone [phone] Care Team Providers Care Windows Security Engineer Name Role Phone Kimberly Galicia DO AUTM [phone] Problems Description No Information Available Social History Type Date Description Comments Sex Unknown ETOH Use Denies alcohol use Tobacco Use Start: Unknown Patient has never smoked Tobacco Use Start: Unknown The patient has never vaped Smoking Status Reviewed: 07/28/21 The patient has never vaped Allergies and adverse reactions Description No Known Drug Allergies Medications Active Medications SIG Qnty Indications Ordering Provide r Date Theraflu Flu & Sore Throat Last dose yesterday Unknown Tylenol 8 Hour Last dose this Am Unknown Immunizations Description No Information Available Vital Signs Date Vital Result Comment 07/28/2021 5:03pm BP Systolic 110 mmHg BP Diastolic 74 mmHg Heart Rate 135 /min Respiratory Rate 18 /min O2 % BldC Oximetry 97 % Body Temperature 102.4 F Weight 165.00 lb Height 64 inches 5'4" BMI (Body Mass Index) 28.3 kg/m2 Pain Level 10 Results Description No Information Available Procedures Description No Information Available Medical Devices Description No Information Available Encounters Description No Information Available Assessments Description No Information Available Plan of Treatment No Information Available Functional Status Description No Information Available Mental Status Description No Information Available Referrals Description No Information Available
--- OUTSIDE RECORDS SUMMARY | 2021-07-31 20:33 | CCD | Continuity of Care Document ---
Author Author Regina AVALOS MANAGER [employer] Organization Unknown Address [address] [place] [id number] Phone [phone] Care Team Providers Care Internet Designer Name Role Phone Kimberly Galicia DO AUTM Problems Description No Information Available Social History [...] Index) 28.3 kg/m2 Pain Level 10 Results Test Acquired Date Facility Test Result H/L Range Note Laboratory test finding 07/28/2021 [facility] [address] [place] [address] [phone] Urine Culture <pending> Procedures Date Code Description Status 07/28/2021 98244 Office/Outpatient [facility] 30 -44 Minutes Completed Medical Devices Description No Information Available Encounters Type Date Location Provider Dx Diagnosis Office Visit 07/28/2021 1:20p Main Office Nirmala Avalos NP R30. 0 Dysuria R50.9 Fever, unspecified Z20.828 Contact w and exposure to ot h viral communicable diseases Assessments Date Code Description Provider 07/28/2021 R30.0 Dysuria Nirmala gómez NP 07/28/2021 R50.9 Fever, unspecified Nirmala cramer NP 07/28/2021 Z20.828 Contact with and (cobb spected) exposure to other viral communicable diseases Nirmala Avalos NP Plan of Treatment No Information Available Functional Status Description No Information Available Mental Status Description No Information Available Referrals Description No Information Available
--- OUTSIDE RECORDS SUMMARY | 2021-07-31 20:34 | CCD ---
Author Author [facility] Organization [facility] Address Unknown Phone Unavailable Care Team Providers Care Die Inspector Name Role Phone Julia Richterina AUTO MECHANIC APPRENTICE Unavailable Unavailable Richter, Nirmala AUTO MECHANIC APPRENTICE Unavailable Unavailable Richter, Nirmala AUTO MECHANIC APPRENTICE Unavailable Unavailable Richter, Nirmala AUTO MECHANIC APPRENTICE Unavailable Unavailable Richter, Nirmala AUTO MECHANIC APPRENTICE Unavailable Unavailable Richter, Nirmala AUTO MECHANIC APPRENTICE Unavailable Unavailable Richter, Nirmala AUTO MECHANIC APPRENTICE Unavailable Unavailable Richter, Nirmala AUTO MECHANIC APPRENTICE Unavailable Unavailable Richter, Nirmala AUTO MECHANIC APPRENTICE Unavailable Unavailable Richter, Nirmala AUTO MECHANIC APPRENTICE Unavailable Unavailable Richter, Nirmala AUTO MECHANIC APPRENTICE Unavailable Unavailable Richter, Nirmala AUTO MECHANIC APPRENTICE Unavailable Unavailable Richter, Nirmala AUTO MECHANIC APPRENTICE Unavailable Unavailable O'lazara, A Jordan PA Unavailable [...] is protected by Article 27-F of the [facility] Public Health law. If you continue you may have access to information: Regarding HIV / AIDS; Provided by facilities licensed or operated by the [facility] Office of Mental Health; or Provided by the [facility] Office for People With Developmental Disabilities. If such information is present, then the following [facility] mandated warning applies: This information has [...] law may result in a fine or mcc sentence or both. A general authorization for the release of medical or other information is NOT sufficient authorization for further disc losure. Family History Family Member Name Family Member Gender Family Member Status Date o f Status Description Data Source(s) Unknown Male Problem [facility] ([facility]) Encounters Encounter Providers Location Date Indications Data Source(s ) Outpatient Attender: Nirmala leigh 07/28/2021 12:20:00 PM EST [facility] ([facility] Outpatient Attender: Jordan CARL [facility] 06/28/2021 02:30:00 PM EDT [facility] ([facility]) Outpatient Attender: Jordan CARL [facility] 06/06/2021 01:15:00 PM EDT [facility] ([facility]) Outpatient Attender: Jordan CARL [facility] 05/12/2021 11:00:00 AM EDT [facility] ([facility]) Outpatient Attender: Jordan CARL [facility] 12/27/2020 02:30:00 PM EDT [facility] ([facility]) Outpatient Attender: Jordan CARL [facility] 10/06/2020 02:50:00 PM EST [facility] ([facility]) Outpatient Attender: Jordan CARL [facility] 09/28/2020 12:30:00 PM EST [facility] ([facility]) Outpatient Attender: Jordan CARL [facility] 08/22/2020 12:00:00 PM EST [facility] ([facility]) Outpatient Attender: Jordan CARL [facility] 08/15/2020 01:00:00 PM EST [facility] ([facility]) Medications Medication Brand Name Start Date Product Form Dose Route Admi nistrative Instructions Pharmacy Instructions Status Indications Reaction Description Data Source(s) Acetaminophen 325 MG / butalbital 50 MG / Caffeine 40 MG Oral Capsule Butalbital/Acetaminophen/Caffeine 10/07/2020 12:00:00 AM EST ORAL active [facility] ([facility]) Injection Ketorolac Tromethamine Per 15 MG (Toradol) 10/06/2020 12:00:00 AM EST completed [facility] ([facility]) Medication administered onsite Injection Ketorolac Tromethamine Per 15 MG (Toradol) 10/06/2020 12:00:00 AM EST completed [facility] ([facility]) Medication administered onsite Zolpidem tartrate 10 MG Oral Tablet [Ambien] Ambien 12:00:00 AM EST ORAL completed [facility] ([facility]) Spironolactone 50 MG Oral Tablet Spironolactone 09/28/2020 12:00:00 A M EST ORAL active [facility] ([facility]) No Active Medications 08/15/2020 12:00:00 AM EST completed [facility] ([facility]) Meclizine Hydrochloride 12.5 MG Oral Tablet Meclizine HCL 08/15/2020 12:00:00 AM EST ORAL active [facility] ([facility]) Insurance Providers Payer name Policy type / Coverage type Policy ID Covered republican ID Covered republican's relationship to crowell Policy Crowell Plan Information [facility] [id number] [facility] [id number] [facility] [id number] [facility] [id number] [facility] [id number] Problems, Conditions, and Diagnoses No Information Surgeries/Procedures Procedure Description Date Indications Data Source(s) OFFICE OUTPATIENT NEW 30 MINUTES 07/28/2021 12:00:00 A M EST [facility] ([facility]) OFFICE OUTPATIENT VISIT 15 MINUTES 06/28/2021 12:00:00 AM EDT [facility] ([facility]) PERIODIC PREVENTIVE MED EST PATIENT 18-39 YRS 06/06/20 12:00:00 AM EDT [facility] ([facility]) OFFICE OUTPATIENT VISIT 15 MINUTES 05/12/2021 12:00:00 AM EDT [facility] ([facility]) OFFICE OUTPATIENT VISIT 15 MINUTES 12/27/2020 12:00:00 AM EDT [facility] ([facility]) Remove Impact Cerumen Irrigati 08/15/2020 12:00:00 AM EST [facility] ([facility]) Results ID Date Data Source [id number] 07/28/2021 05:29:00 PM EST [facility] ([facility]) Name Value Range Interpretation Code Description Data Zeynep rce(s) Supporting Document(s) Bacteria identified in Urine by Culture Laboratory test result [facility] ([facility]) ID Date Data Source [id number] 10/06/2020 03:20:00 PM EST [facility] ([facility]) Name Value Range Interpretation Code Description Data Zeynep rce(s) Supporting Document(s) Respiratory Panel Laboratory test result [facility] ([facility]) This respiratory PCR panel detects Influ tip [...] - SARS-CoV-2 (COVID19) ID Date Data Source [id number] 10/06/2020 03:20:00 PM EST [facility] Name Value Range Interpretation Code Description Data [facility] Supporting Document(s) SARS-CoV-2 (COVID 19) NEGATIVE - SARS-CoV-2 (COVID19) [facility] This lab was ordered by [facility] a nd reported by [facility]. ID Date Data Source [id number] 08/16/2020 01:55:00 PM EST [facility] ([facility]) Name Value Range Interpretation Code Description Data Zeynep rce(s) Supporting Document(s) Tissue transglutaminase IgG Ab [Units/volume] in Serum Labor atory test result 0-5 Normal (applies to non-numeric results) [facility] ([facility]) Negative 0 - 5 Weak Positive 6 - 9 Positive >9 Tissue transglutaminase IgA Ab [Units/volume] in Serum Labor atory test result 0-3 Normal (applies to non-numeric results) [facility] ([facility]) Negative 0 - 3 Weak Positive 4 - 10 Positive >10 . Tissue Transglutaminase (tTG) has been identified as the endomysial antigen. Studies have demonstr- ated that endomysial IgA antibodies have over 99% specificity for gluten sensitive enteropathy. IgA [Mass/volume] in Serum or Plasma 306.0 mg/dL 70-400 Normal (applies to non- numeric results) [facility] ([facility]) ID Date Data Source [id number] 08/16/2020 01:55:00 PM EST [facility] ([facility]) Name Value Range Interpretation Code Description Data Zeynep rce(s) Supporting Document(s) Vitamin B12 Level 614 pg/mL Normal (applies to non-numeri c results) [facility] ([facility]) VITAMIN B12 NORMAL RANGE NORMAL 247 - 911 PG/ML INDETERMINATE 211 - 246 PG/ML DEFICIENT LESS THAN 211 PG/ML Folate 22.9 ng/mL Normal (applies to non-numeric resul ts) [facility] ([facility]) FOLATE NORMAL RANGE NORMAL GREATER THAN 5.4 NG/ML INDETERMINATE 3.4-5.4 NG/ML DEFICIENT LESS THAN 3.4 NG/ML ID Date Data Source [id number] 08/16/2020 01:55:00 PM EST [facility] ([facility]) Name Value Range Interpretation Code Description Data Zeynep rce(s) Supporting Document(s) [place] (Hep2) Laboratory test result Normal (applies to non-n umeric results) [facility]) <content>Negative <1:80</content>
<content>Borderline 1:80</content>
<content>Positive >1:80</content>
<content>Performed at: RN - [facility]</content>
<content>[address] [place] [phone]</content>
<content>Azure Developer: Dulce Contreras MD, Phone: [phone]</content>
<content></content> ID Date Data Source [id number] 08/16/2020 01:55:00 PM EST [facility] ([facility]) Name Value Range Interpretation Code Description Data Zeynep rce(s) Supporting Document(s) Thyroid Stimulating Hormone 0.999 uIU/ML 0.358-3.740 Norm al (applies to non- numeric results) [facility] ([facility]) Free T4 1.05 ng/dL 0.76-1.46 Normal (applies to non-numeric resul ts) [facility] ([facility]) ID Date Data Source [id number] 08/16/2020 01:55:00 PM EST [facility] ([facility]) Name Value Range Interpretation Code Description Data Zeynep rce(s) Supporting Document(s) Ferritin [Mass/volume] in Serum or Plasma 36 ng/mL 8-252 Normal (applies to non- numeric results) [facility] ([facility]) ID Date Data Source [id number] 08/16/2020 01:55:00 PM EST [facility] ([facility]) Name Value Range Interpretation Code Description Data Zeynep rce(s) Supporting Document(s) Iron (Fe) 88 ug/dL 50-170 Normal (applies to non-numeric resul ts) [facility] ([facility]) Total Iron Binding Capacity 315 ug/dL 250-450 Norm al (applies to non-numeric results) [facility] ([facility]) Percent Saturation 27.9 % 13.2-45.0 Normal (applies to non-numer ic results) [facility] ([facility]) ID Date Data Source [id number] 08/16/2020 01:55:00 PM EST [facility] ([facility]) Name Value Range Interpretation Code Description Data Zeynep rce(s) Supporting Document(s) Blood Urea Nitrogen 8 mg/dL 7-18 Normal (applies to non-nume pratik results) [facility] ([facility]) Glucose, Fasting 95 mg/dL 70-100 Normal (applies to non-numeric results) [facility] ([facility]) Glomerular Filtration Rate Laboratory test result Normal (applies to non- numeric results) [facility] ([facility]) <content>Units are mL/min/1.73 m2</content>
<content></content>
<content>Chronic Kidney Disease Staging per NKF:</content>
<content></content>
<content>Stage I & II GFR >=60 Normal to Mildly Decreased</content>
<content>Stage III GFR 30- 59 Moderately Decreased</content>
<content>Stage IV GFR 15-29 Severely Decreased</content>
<content>Stage V GFR <15 Very Little GFR Left</content>
<content>ESRD GFR <15 on MANAGER FINANCE</content>
<content></content> Creatinine For GFR 0.72 mg/dL 0.55-1.30 Normal (applies to non -numeric results) [facility] ([facility]) Sodium Level 138 meq/L 136-145 Normal (applies to non-numeric res ults) [facility] ([facility]) Potassium Serum 4.8 meq/L 3.5-5.1 Normal (applies to non-numeric results) [facility] ([facility]) Carbon Dioxide Level 28 meq/L 21-32 Normal (applies to non-num ron results) [facility] ([facility]) Chloride Level 108 meq/L 98-107 Above high normal [facility] ([facility]) Calcium Level 9.4 mg/dL 8.5-10.1 Normal (applies to non-numeric re sults) [facility] ([facility]) Anion Gap 2 meq/L 8-16 Below low normal [facility] ( [facility]) Ast/Sgot 12 U/L 7-37 Normal (applies to non-numeric resul ts) [facility] ([facility]) Alt/SGPT 11 U/L 12-78 Below low normal [facility] ( [facility]) Bilirubin,Total 0.5 mg/dL 0.2-1.0 Normal (applies to non-numeric results) [facility] ([facility]) Alkaline Phosphatase 56 U/L 45-117 Normal (applies to non-num ron results) [facility] ([facility]) Albumin 4.2 GM/DL 3.2-5.2 Normal (applies to non-numeric resul ts) [facility] ([facility]) Total Protein 7.5 GM/DL 6.4-8.2 Normal (applies to non-numeric re sults) [facility] ([facility]) Albumin/Globulin Ratio 1.3 1.2-2.2 Normal (applies to non-n umeric results) [facility] ([facility]) ID Date Data Source [id number] 08/16/2020 01:55:00 PM EST [facility] ([facility]) Name Value Range Interpretation Code Description Data Zeynep rce(s) Supporting Document(s) White Blood Count 4.6 10 4.0-10.0 Normal (applies to non-numeri c results) [facility] ([facility]) Red Blood Count 4.66 10 4.00-5.40 Normal (applies to non-numeric results) [facility] ([facility]) Hematocrit 41.8 % 36.0-47.0 Normal (applies to non-numeric resul ts) [facility] ([facility]) Hemoglobin 13.2 g/dL 12.0-15.5 Normal (applies to non-numeric resul ts) [facility] ([facility]) Mean Corpuscular Volume 89.7 fl 80.0-96.0 Normal ( applies to non-numeric results) [facility] ([facility]) Mean Corpuscular Hemoglobin 28.3 pg 27.0-33.0 Norm al (applies to non-numeric results) [facility] ([facility]) Mean Corpuscular HGB Conc 31.6 g/dL 32.0-36.5 Below low [facility] Red Cell Distribution Width 13.7 % 11.5-14.5 Norm al (applies to non-numeric results) [facility] ([facility]) Platelet Count, Automated 209 10 150-450 Normal (applies to non-numeric results) [facility] ([facility]) Neutrophils % 59.1 % 36.0-66.0 Normal (applies to non-numeric re sults) [facility] ([facility]) Eos % 0.7 % 0.0-3.0 Normal (applies to non-numeric resul ts) [facility] ([facility]) Lymph % 29.3 % 24.0-44.0 Normal (applies to non-numeric resul ts) [facility] ([facility]) [place] % 10.0 % 0.0-5.0 Above high normal [facility] ([facility]) Immature Granulocyte % 0.2 % 0-3.0 Normal (applies to non-n umeric results) [facility] ([facility]) Baso % 0.7 % 0.0-1.0 Normal (applies to non-numeric resul ts) [facility] ([facility]) Neutrophils # 2.7 10 1.5-8.5 Normal (applies to non-numeric re sults) [facility] ([facility]) Nucleated Red Blood Cell % 0.0 % 0-0 Normal (applies to n on-numeric results) [facility] ([facility]) Lymph # 1.4 10 1.5-5.0 Below low normal [facility] ( [facility]) [place] # 0.5 10 0.0-0.8 Normal (applies to non-numeric resul ts) [facility] ([facility]) Baso # 0.0 10 0.0-0.2 Normal (applies to non-numeric resul ts) [facility] ([facility]) Eos # 0.0 10 0.0-0.5 Normal (applies to non-numeric resul ts) [facility] ([facility]) Procedure Social History No Information Vital Signs ID Date Data Source UNK Name Value Range Interpretation Code Description Data Source(s) Systolic blood pressure 110 mm[Hg] 110 mm[Hg] M EDENT ([facility], [facility]) Diastolic blood pressure 74 mm[Hg] 74 mm[Hg] [facility] ([facility], [facility]) Heart rate 135 /min 135 /min [facility] ([facility], [facility]) Respiratory rate 18 /min 18 /min [facility] ( [facility], [facility]) Oxygen saturation in Arterial blood by Pulse oximetry 97 % 97 % [facility] ([facility], [facility]) Body temperature 102.4 [degF] 102.4 [degF] MEDE NT ([facility], [facility]) Body weight 165.00 [lb_av] 165.00 [lb_av] MEDEN T ([facility], [facility]) Body height 64 [in_i] 64 [in_i] [facility] ([facility], [facility]) 5'4" Body mass index (BMI) [Ratio] 28.3 kg/m2 28.3 k g/m2 [facility] ([facility]) Systolic blood pressure 128 mm[Hg] 128 mm[Hg] M EDENT ([facility]) Diastolic blood pressure 68 mm[Hg] 68 mm[Hg] [facility] ([facility]) Body weight 167.38 [lb_av] 167.38 [lb_av] MEDEN T ([facility]) Body height 61.0 [in_i] 61.0 [in_i] [facility] ([facility]) 5'1" Body temperature 98.2 [degF] 98.2 [degF] [facility] ([facility]) Oxygen saturation in Arterial blood by Pulse oximetry 98 % 98 % [facility] ([facility]) [place] body weight 105 [lb_av] 105 [lb_av] MEDEN T ([facility]) Body mass index (BMI) [Ratio] 31.6 kg/m2 31.6 k g/m2 [facility] ([facility]) Heart rate 88 /min 88 /min [facility] ([facility]) Respiratory rate 12 /min 12 /min [facility] ( [facility]) Body height 61.0 [in_i] 61.0 [in_i] [facility] ([facility]) 5'1" Body weight 165.00 [lb_av] 165.00 [lb_av] MEDEN T ([facility]) Body mass index (BMI) [Ratio] 31.2 kg/m2 31.2 k g/m2 [facility] ([facility]) Heart rate 76 /min 76 /min [facility] ([facility]) Systolic blood pressure 118 mm[Hg] 118 mm[Hg] M EDENT ([facility]) Diastolic blood pressure 76 mm[Hg] 76 mm[Hg] [facility] ([facility]) [place] body weight 105 [lb_av] 105 [lb_av] MEDEN T ([facility]) Respiratory rate 20 /min 20 /min [facility] ( [facility]) Body temperature 98.6 [degF] 98.6 [degF] [facility] ([facility]) Oxygen saturation in Arterial blood by Pulse oximetry 99 % 99 % [facility] ([facility]) Systolic blood pressure 114 mm[Hg] 114 mm[Hg] M EDENT ([facility]) Diastolic blood pressure 72 mm[Hg] 72 mm[Hg] [facility] ([facility]) Body height 61.0 [in_i] 61.0 [in_i] [facility] ([facility]) 5'1" Body weight 163.25 [lb_av] 163.25 [lb_av] MEDEN T ([facility]) Body mass index (BMI) [Ratio] 30.8 kg/m2 30.8 k g/m2 [facility] ([facility]) Heart rate 77 /min 77 /min [facility] ([facility]) Respiratory rate 18 /min 18 /min [facility] ( [facility]) Body temperature 99.1 [degF] 99.1 [degF] [facility] ([facility]) Oxygen saturation in Arterial blood by Pulse oximetry 100 % 100 % [facility] ([facility]) [place] body weight 105 [lb_av] 105 [lb_av] MEDEN T ([facility]) [place] body weight 105 [lb_av] 105 [lb_av] MEDEN T ([facility]) Systolic blood pressure 108 mm[Hg] 108 mm[Hg] M EDENT ([facility]) Diastolic blood pressure 70 mm[Hg] 70 mm[Hg] [facility] ([facility]) Body height 61.0 [in_i] 61.0 [in_i] [facility] ([facility]) 5'1" Body weight 152.38 [lb_av] 152.38 [lb_av] MEDEN T ([facility]) Body mass index (BMI) [Ratio] 28.8 kg/m2 28.8 k g/m2 [facility] ([facility]) Heart rate 78 /min 78 /min [facility] ([facility]) Respiratory rate 18 /min 18 /min [facility] ( [facility]) Body temperature 97.8 [degF] 97.8 [degF] [facility] ([facility]) Oxygen saturation in Arterial blood by Pulse oximetry 99 % 99 % [facility] ([facility]) Respiratory rate 18 /min 18 /min [facility] ( [facility]) Body temperature 98.7 [degF] 98.7 [degF] [facility] ([facility]) Oxygen saturation in Arterial blood by Pulse oximetry 99 % 99 % [facility] ([facility]) [place] body weight 105 [lb_av] 105 [lb_av] MEDEN T ([facility]) Systolic blood pressure 120 mm[Hg] 120 mm[Hg] M EDENT ([facility]) Diastolic blood pressure 80 mm[Hg] 80 mm[Hg] [facility] ([facility]) Body height 61.0 [in_i] 61.0 [in_i] [facility] ([facility]) 5'1" Heart rate 73 /min 73 /min [facility] ([facility]) Heart rate 76 /min 76 /min [facility] ([facility]) Respiratory rate 18 /min 18 /min [facility] ( [facility]) Body temperature 98.5 [degF] 98.5 [degF] [facility] ([facility]) Systolic blood pressure 122 mm[Hg] 122 mm[Hg] M EDENT ([facility]) Diastolic blood pressure 76 mm[Hg] 76 mm[Hg] [facility] ([facility]) Body height 61.0 [in_i] 61.0 [in_i] [facility] ([facility]) 5'1" Body weight 146.38 [lb_av] 146.38 [lb_av] MEDEN T ([facility]) Oxygen saturation in Arterial blood by Pulse oximetry 99 % 99 % [facility] ([facility]) Body mass index (BMI) [Ratio] 27.7 kg/m2 27.7 k g/m2 [facility] ([facility]) [place] body weight 105 [lb_av] 105 [lb_av] MEDEN T ([facility]) Body weight 139.00 [lb_av] 139.00 [lb_av] MEDEN T ([facility]) Body mass index (BMI) [Ratio] 26.3 kg/m2 26.3 k g/m2 [facility] ([facility]) Heart rate 90 /min 90 /min [facility] ([facility]) Respiratory rate 18 /min 18 /min [facility] ( [facility]) Body temperature 98.9 [degF] 98.9 [degF] [facility] ([facility]) Oxygen saturation in Arterial blood by Pulse oximetry 99 % 99 % [facility] ([facility]) [place] body weight 105 [lb_av] 105 [lb_av] MEDEN T ([facility]) Systolic blood pressure 108 mm[Hg] 108 mm[Hg] M EDENT ([facility]) Diastolic blood pressure 64 mm[Hg] 64 mm[Hg] [facility] ([facility]) Body height 61.0 [in_i] 61.0 [in_i] [facility] ([facility]) 5'1" Systolic blood pressure 126 mm[Hg] 126 mm[Hg] M EDENT ([facility]) Diastolic blood pressure 68 mm[Hg] 68 mm[Hg] [facility] ([facility]) Body height 61.0 [in_i] 61.0 [in_i] [facility] ([facility]) 5'1" Body weight 140.50 [lb_av] 140.50 [lb_av] MEDEN T ([facility]) Body mass index (BMI) [Ratio] 26.5 kg/m2 26.5 k g/m2 [facility] ([facility]) Heart rate 89 /min 89 /min [facility] ([facility]) Respiratory rate 18 /min 18 /min [facility] ( [facility]) Body temperature 98.7 [degF] 98.7 [degF] [facility] ([facility]) Oxygen saturation in Arterial blood by Pulse oximetry 99 % 99 % [facility] ([facility]) [place] body weight 105 [lb_av] 105 [lb_av] MEDEN T ([facility])
[2021-07-31] MEDS ORDERED: TRAM50TA2 PO (21:12)
[2021-07-31] MEDS ORDERED: IBUPROFEN 800 MG TAB PO ONE (21:15)
[2021-07-31] MEDS ORDERED: ONDANSETRON 4 MG ORAL DISINTEGRATING TAB PO ONE (21:20)
[2021-07-31] MEDS ORDERED: NS 1,000 ML IV ONE (22:00)
[2021-07-31] MEDS ORDERED: KETOROLAC 30 MG/ML 1ML VIAL IV ONE (22:00)
[2021-07-31] MEDS ORDERED: ONDANSETRON 4MG/2ML VIAL IV ONE (22:00)
[2021-07-31] MEDS ORDERED: MEROPENEM INJ 1 GM in IV 1 EA IV ONE (22:05)
[2021-07-31 22:24] LABS: HEMATOCRIT 29.4 % (36.0-47.0); MEAN CORPUSCULAR HEMOGLOBIN 28.5 pg (27.0-33.0); MEAN CORPUSCULAR VOLUME 83.8 fl (80.0-96.0); PLATELET COUNT, AUTOMATED 168 10^3/uL (150-450); RED BLOOD COUNT 3.51 10^6/uL (4.00-5.40)
[2021-07-31 22:54] LABS: ALBUMIN 2.4 GM/DL (3.2-5.2); ALT/SGPT 29 U/L (12-78); BILIRUBIN,DIRECT 0.2 MG/DL (0.0-0.2); BILIRUBIN,TOTAL 0.4 MG/DL (0.2-1.0); LIPASE 119 U/L (73-393); TOTAL PROTEIN 6.1 GM/DL (6.4-8.2)
--- OUTSIDE RECORDS SUMMARY | 2021-07-31 23:00 | CCD ---
Author Author [facility] Organization [facility] Address Unknown Phone Unavailable Care Team Providers Care Lusterer Name Role Phone Julia Richterina CREATIVE WRITER Unavailable Unavailable Richter, Nirmala CREATIVE WRITER Unavailable Unavailable Richter, Nirmala CREATIVE WRITER Unavailable Unavailable Richter, Nirmala CREATIVE WRITER Unavailable Unavailable Richter, Nirmala CREATIVE WRITER Unavailable Unavailable Richter, Nirmala CREATIVE WRITER Unavailable Unavailable Richter, Nirmala CREATIVE WRITER Unavailable Unavailable Richter, Nirmala CREATIVE WRITER Unavailable Unavailable Richter, Nirmala CREATIVE WRITER Unavailable Unavailable Richter, Nirmala CREATIVE WRITER Unavailable Unavailable Richter, Nirmala CREATIVE WRITER Unavailable Unavailable Richter, Nirmala CREATIVE WRITER Unavailable Unavailable Richter, Nirmala CREATIVE WRITER Unavailable Unavailable O'lazara, A Jordan PA Unavailable [...] is protected by Article 27-F of the [facility] Public Health law. If you continue you may have access to information: Regarding HIV / AIDS; Provided by facilities licensed or operated by the [facility] Office of Mental Health; or Provided by the [facility] Office for People With Developmental Disabilities. If such information is present, then the following [facility] mandated warning applies: This information [...] law may result in a fine or intermediate sentence or both. A general authorization for the release of medical or other information is NOT sufficient authorization for further disc losure. Family History Family Member Name Family Member Gender Family Member Status Date o f Status Description Data Source(s) Unknown Male Problem [facility] ([facility]) Encounters Encounter Providers Location Date Indications Data Source(s ) Outpatient Attender: Nirmala leigh 07/28/2021 12:20:00 PM EST [facility] ([facility] Outpatient Attender: Jordan CARL [facility] 06/28/2021 02:30:00 PM EDT [facility] ([facility]) Outpatient Attender: Jordan CARL [facility] 06/06/2021 01:15:00 PM EDT [facility] ([facility]) Outpatient Attender: Jordan CARL [facility] 05/12/2021 11:00:00 AM EDT [facility] ([facility]) Outpatient Attender: Jordan CARL [facility] 12/27/2020 02:30:00 PM EDT [facility] ([facility]) Outpatient Attender: Jordan CARL [facility] 10/06/2020 02:50:00 PM EST [facility] ([facility]) Outpatient Attender: Jordan CARL [facility] 09/28/2020 12:30:00 PM EST [facility] ([facility]) Outpatient Attender: Jordan CARL [facility] 08/22/2020 12:00:00 PM EST [facility] ([facility]) Outpatient Attender: Jordan CARL [facility] 08/15/2020 01:00:00 PM EST [facility] ([facility]) Medications Medication Brand Name Start Date Product Form Dose Route Admi nistrative Instructions Pharmacy Instructions Status Indications Reaction Description Data Source(s) Acetaminophen 325 MG / butalbital 50 MG / Caffeine 40 MG Oral Capsule Butalbital/Acetaminophen/Caffeine 10/07/2020 12:00:00 AM EST ORAL active [facility] ([facility]) Injection Ketorolac Tromethamine Per 15 MG (Toradol) 10/06/2020 12:00:00 AM EST completed [facility] ([facility]) Medication administered onsite Injection Ketorolac Tromethamine Per 15 MG (Toradol) 10/06/2020 12:00:00 AM EST completed [facility] ([facility]) Medication administered onsite Zolpidem tartrate 10 MG Oral Tablet [Ambien] Ambien 12:00:00 AM EST ORAL completed [facility] ([facility]) Spironolactone 50 MG Oral Tablet Spironolactone 09/28/2020 12:00:00 A M EST ORAL active [facility] ([facility]) No Active Medications 08/15/2020 12:00:00 AM EST completed [facility] ([facility]) Meclizine Hydrochloride 12.5 MG Oral Tablet Meclizine HCL 08/15/2020 12:00:00 AM EST ORAL active [facility] ([facility]) Insurance Providers Payer name Policy type / Coverage type Policy ID Covered alliance party ID Covered alliance party's relationship to crowell Policy Crowell Plan Information [facility] [id number] [facility] Commercial [id number] [facility] [id number] [facility] [id number] [facility] [id number] Problems, Conditions, and Diagnoses No Information Surgeries/Procedures Procedure Description Date Indications Data Source(s) OFFICE OUTPATIENT NEW 30 MINUTES 07/28/2021 12:00:00 A M EST [facility] ([facility]) OFFICE OUTPATIENT VISIT 15 MINUTES 06/28/2021 12:00:00 AM EDT [facility] ([facility]) PERIODIC PREVENTIVE MED EST PATIENT 18-39 YRS 06/06/20 12:00:00 AM EDT [facility] ([facility]) OFFICE OUTPATIENT VISIT 15 MINUTES 05/12/2021 12:00:00 AM EDT [facility] ([facility]) OFFICE OUTPATIENT VISIT 15 MINUTES 12/27/2020 12:00:00 AM EDT [facility] ([facility]) Remove Impact Cerumen Irrigati 08/15/2020 12:00:00 AM EST [facility] ([facility]) Results ID Date Data Source [id number] 07/28/2021 05:29:00 PM EST [facility] ([facility]) Name Value Range Interpretation Code Description Data Zeynep rce(s) Supporting Document(s) Bacteria identified in Urine by Culture Laboratory test result [facility] ([facility]) ID Date Data Source [id number] 10/06/2020 03:20:00 PM EST [facility] ([facility]) Name Value Range Interpretation Code Description Data Zeynep rce(s) Supporting Document(s) Respiratory Panel Laboratory test result [facility] ([facility]) This respiratory PCR panel detects Influ [...] - SARS-CoV-2 (COVID19) ID Date Data Source [id number] 10/06/2020 03:20:00 PM EST [facility] Name Value Range Interpretation Code Description Data [facility] Supporting Document(s) SARS-CoV-2 (COVID 19) NEGATIVE - SARS-CoV-2 (COVID19) [facility] This lab was ordered by [facility] a nd reported by [facility]. ID Date Data Source [id number] 08/16/2020 01:55:00 PM EST [facility] ([facility]) Name Value Range Interpretation Code Description Data Zeynep rce(s) Supporting Document(s) Tissue transglutaminase IgG Ab [Units/volume] in Serum Labor atory test result 0-5 Normal (applies to non-numeric results) [facility] ([facility]) Negative 0 - 5 Weak Positive 6 - 9 Positive >9 Tissue transglutaminase IgA Ab [Units/volume] in Serum Labor atory test result 0-3 Normal (applies to non-numeric results) [facility] ([facility]) Negative 0 - 3 Weak Positive 4 - 10 Positive >10 . Tissue Transglutaminase (tTG) has been identified as the endomysial antigen. Studies have demonstr- ated that endomysial IgA antibodies have over 99% specificity for gluten sensitive enteropathy. IgA [Mass/volume] in Serum or Plasma 306.0 mg/dL 70-400 Normal (applies to non- numeric results) [facility] ([facility]) ID Date Data Source [id number] 08/16/2020 01:55:00 PM EST [facility] ([facility]) Name Value Range Interpretation Code Description Data Zeynep rce(s) Supporting Document(s) Vitamin B12 Level 614 pg/mL Normal (applies to non-numeri c results) [facility] ([facility]) VITAMIN B12 NORMAL RANGE NORMAL 247 - 911 PG/ML INDETERMINATE 211 - 246 PG/ML DEFICIENT LESS THAN 211 PG/ML Folate 22.9 ng/mL Normal (applies to non-numeric resul ts) [facility] ([facility]) FOLATE NORMAL RANGE NORMAL GREATER THAN 5.4 NG/ML INDETERMINATE 3.4-5.4 NG/ML DEFICIENT LESS THAN 3.4 NG/ML ID Date Data Source [id number] 08/16/2020 01:55:00 PM EST [facility] ([facility]) Name Value Range Interpretation Code Description Data Zeynep rce(s) Supporting Document(s) [place] (Hep2) Laboratory test result Normal (applies to non-n umeric results) [facility]) <content>Negative <1:80</content>
<content>Borderline 1:80</content>
<content>Positive >1:80</content>
<content>Performed at: RN - [facility]</content>
<content>[address] [place] [address] [phone]</content>
<content>Psych Tech: Dulce Contreras MD, Phone: [phone]</content>
<content></content> ID Date Data Source [id number] 08/16/2020 01:55:00 PM EST [facility] ([facility]) Name Value Range Interpretation Code Description Data Zeynep rce(s) Supporting Document(s) Thyroid Stimulating Hormone 0.999 uIU/ML 0.358-3.740 Norm al (applies to non- numeric results) [facility] ([facility]) Free T4 1.05 ng/dL 0.76-1.46 Normal (applies to non-numeric resul ts) [facility] ([facility]) ID Date Data Source [id number] 08/16/2020 01:55:00 PM EST [facility] ([facility]) Name Value Range Interpretation Code Description Data Zeynep rce(s) Supporting Document(s) Ferritin [Mass/volume] in Serum or Plasma 36 ng/mL 8-252 Normal (applies to non- numeric results) [facility] ([facility]) ID Date Data Source [id number] 08/16/2020 01:55:00 PM EST [facility] ([facility]) Name Value Range Interpretation Code Description Data Zeynep rce(s) Supporting Document(s) Iron (Fe) 88 ug/dL 50-170 Normal (applies to non-numeric resul ts) [facility] ([facility]) Total Iron Binding Capacity 315 ug/dL 250-450 Norm al (applies to non-numeric results) [facility] ([facility]) Percent Saturation 27.9 % 13.2-45.0 Normal (applies to non-numer ic results) [facility] ([facility]) ID Date Data Source [id number] 08/16/2020 01:55:00 PM EST [facility] ([facility]) Name Value Range Interpretation Code Description Data Zeynep rce(s) Supporting Document(s) Blood Urea Nitrogen 8 mg/dL 7-18 Normal (applies to non-nume pratik results) [facility] ([facility]) Glucose, Fasting 95 mg/dL 70-100 Normal (applies to non-numeric results) [facility] ([facility]) Glomerular Filtration Rate Laboratory test result Normal (applies to non- numeric results) [facility] ([facility]) <content>Units are mL/min/1.73 m2</content>
<content></content>
<content>Chronic Kidney Disease Staging per NKF:</content>
<content></content>
<content>Stage I & II GFR >=60 Normal to Mildly Decreased</content>
<content>Stage III GFR 30- 59 Moderately Decreased</content>
<content>Stage IV GFR 15-29 Severely Decreased</content>
<content>Stage V GFR <15 Very Little GFR Left</content>
<content>ESRD GFR <15 on EXTRUSION DIE CORRECTOR</content>
<content></content> Creatinine For GFR 0.72 mg/dL 0.55-1.30 Normal (applies to non -numeric results) [facility] ([facility]) Sodium Level 138 meq/L 136-145 Normal (applies to non-numeric res ults) [facility] ([facility]) Potassium Serum 4.8 meq/L 3.5-5.1 Normal (applies to non-numeric results) [facility] ([facility]) Carbon Dioxide Level 28 meq/L 21-32 Normal (applies to non-num ron results) [facility] ([facility]) Chloride Level 108 meq/L 98-107 Above high normal [facility] ([facility]) Calcium Level 9.4 mg/dL 8.5-10.1 Normal (applies to non-numeric re sults) [facility] ([facility]) Anion Gap 2 meq/L 8-16 Below low normal [facility] ( [facility]) Ast/Sgot 12 U/L 7-37 Normal (applies to non-numeric resul ts) [facility] ([facility]) Alt/SGPT 11 U/L 12-78 Below low normal [facility] ( [facility]) Bilirubin,Total 0.5 mg/dL 0.2-1.0 Normal (applies to non-numeric results) [facility] ([facility]) Alkaline Phosphatase 56 U/L 45-117 Normal (applies to non-num ron results) [facility] ([facility]) Albumin 4.2 GM/DL 3.2-5.2 Normal (applies to non-numeric resul ts) [facility] ([facility]) Total Protein 7.5 GM/DL 6.4-8.2 Normal (applies to non-numeric re sults) [facility] ([facility]) Albumin/Globulin Ratio 1.3 1.2-2.2 Normal (applies to non-n umeric results) [facility] ([facility]) ID Date Data Source [id number] 08/16/2020 01:55:00 PM EST [facility] ([facility]) Name Value Range Interpretation Code Description Data Zeynep rce(s) Supporting Document(s) White Blood Count 4.6 10 4.0-10.0 Normal (applies to non-numeri c results) [facility] ([facility]) Red Blood Count 4.66 10 4.00-5.40 Normal (applies to non-numeric results) [facility] ([facility]) Hematocrit 41.8 % 36.0-47.0 Normal (applies to non-numeric resul ts) [facility] ([facility]) Hemoglobin 13.2 g/dL 12.0-15.5 Normal (applies to non-numeric resul ts) [facility] ([facility]) Mean Corpuscular Volume 89.7 fl 80.0-96.0 Normal ( applies to non-numeric results) [facility] ([facility]) Mean Corpuscular Hemoglobin 28.3 pg 27.0-33.0 Norm al (applies to non-numeric results) [facility] ([facility]) Mean Corpuscular HGB Conc 31.6 g/dL 32.0-36.5 Below low [facility] Red Cell Distribution Width 13.7 % 11.5-14.5 Norm al (applies to non-numeric results) [facility] ([facility]) Platelet Count, Automated 209 10 150-450 Normal (applies to non-numeric results) [facility] ([facility]) Neutrophils % 59.1 % 36.0-66.0 Normal (applies to non-numeric re sults) [facility] ([facility]) Eos % 0.7 % 0.0-3.0 Normal (applies to non-numeric resul ts) [facility] ([facility]) Lymph % 29.3 % 24.0-44.0 Normal (applies to non-numeric resul ts) [facility] ([facility]) [place] % 10.0 % 0.0-5.0 Above high normal [facility] ([facility]) Immature Granulocyte % 0.2 % 0-3.0 Normal (applies to non-n umeric results) [facility] ([facility]) Baso % 0.7 % 0.0-1.0 Normal (applies to non-numeric resul ts) [facility] ([facility]) Neutrophils # 2.7 10 1.5-8.5 Normal (applies to non-numeric re sults) [facility] ([facility]) Nucleated Red Blood Cell % 0.0 % 0-0 Normal (applies to n on-numeric results) [facility] ([facility]) Lymph # 1.4 10 1.5-5.0 Below low normal [facility] ( [facility]) [place] # 0.5 10 0.0-0.8 Normal (applies to non-numeric resul ts) [facility] ([facility]) Baso # 0.0 10 0.0-0.2 Normal (applies to non-numeric resul ts) [facility] ([facility]) Eos # 0.0 10 0.0-0.5 Normal (applies to non-numeric resul ts) [facility] ([facility]) Procedure Social History No Information Vital Signs ID Date Data Source UNK Name Value Range Interpretation Code Description Data Source(s) Diastolic blood pressure 74 mm[Hg] 74 mm[Hg] [facility] ([facility]) Systolic blood pressure 110 mm[Hg] 110 mm[Hg] M EDENT ([facility], [facility]) Heart rate 135 /min 135 /min [facility] ([facility], [facility]) Respiratory rate 18 /min 18 /min [facility] ( [facility], [facility]) Oxygen saturation in Arterial blood by Pulse oximetry 97 % 97 % [facility] ([facility], [facility]) Body temperature 102.4 [degF] 102.4 [degF] MEDE NT ([facility], [facility]) Body weight 165.00 [lb_av] 165.00 [lb_av] MEDEN T ([facility], [facility]) Body height 64 [in_i] 64 [in_i] [facility] ([facility], [facility]) 5'4" Body mass index (BMI) [Ratio] 28.3 kg/m2 28.3 k g/m2 [facility] ([facility]) Systolic blood pressure 128 mm[Hg] 128 mm[Hg] M EDENT ([facility]) Diastolic blood pressure 68 mm[Hg] 68 mm[Hg] [facility] ([facility]) Body height 61.0 [in_i] 61.0 [in_i] [facility] ([facility]) 5'1" Body temperature 98.2 [degF] 98.2 [degF] [facility] ([facility]) Body weight 167.38 [lb_av] 167.38 [lb_av] MEDEN T ([facility]) Body mass index (BMI) [Ratio] 31.6 kg/m2 31.6 k g/m2 [facility] ([facility]) Oxygen saturation in Arterial blood by Pulse oximetry 98 % 98 % [facility] ([facility]) [place] body weight 105 [lb_av] 105 [lb_av] MED[facility] T ([facility]) Heart rate 88 /min 88 /min [facility] ([facility]) Respiratory rate 12 /min 12 /min [facility] ( [facility]) Respiratory rate 20 /min 20 /min [facility] ( [facility]) Body height 61.0 [in_i] 61.0 [in_i] [facility] ([facility]) 5'1" Body weight 165.00 [lb_av] 165.00 [lb_av] MED[facility] T ([facility]) Body mass index (BMI) [Ratio] 31.2 kg/m2 31.2 k g/m2 [facility] ([facility]) Heart rate 76 /min 76 /min [facility] ([facility]) [place] body weight 105 [lb_av] 105 [lb_av] MED[facility] T ([facility]) Systolic blood pressure 118 mm[Hg] 118 mm[Hg] M EDENT ([facility]) Diastolic blood pressure 76 mm[Hg] 76 mm[Hg] [facility] ([facility]) Body temperature 98.6 [degF] 98.6 [degF] [facility] ([facility]) Oxygen saturation in Arterial blood by Pulse oximetry 99 % 99 % [facility] ([facility]) Systolic blood pressure 114 mm[Hg] 114 mm[Hg] M EDENT ([facility]) Diastolic blood pressure 72 mm[Hg] 72 mm[Hg] [facility] ([facility]) Body height 61.0 [in_i] 61.0 [in_i] [facility] ([facility]) 5'1" Body weight 163.25 [lb_av] 163.25 [lb_av] MED[facility] T ([facility]) Body mass index (BMI) [Ratio] 30.8 kg/m2 30.8 k g/m2 [facility] ([facility]) Heart rate 77 /min 77 /min [facility] ([facility]) Respiratory rate 18 /min 18 /min [facility] ( [facility]) Body temperature 99.1 [degF] 99.1 [degF] [facility] ([facility]) Oxygen saturation in Arterial blood by Pulse oximetry 100 % 100 % [facility] ([facility]) [place] body weight 105 [lb_av] 105 [lb_av] [facility] T ([facility]) Heart rate 78 /min 78 /min [facility] ([facility]) Systolic blood pressure 108 mm[Hg] 108 mm[Hg] M EDENT ([facility]) Diastolic blood pressure 70 mm[Hg] 70 mm[Hg] [facility] ([facility]) Body height 61.0 [in_i] 61.0 [in_i] [facility] ([facility]) 5'1" Body weight 152.38 [lb_av] 152.38 [lb_av] [facility] T ([facility]) Body mass index (BMI) [Ratio] 28.8 kg/m2 28.8 k g/m2 [facility] ([facility]) Respiratory rate 18 /min 18 /min [facility] ( [facility]) Body temperature 97.8 [degF] 97.8 [degF] [facility] ([facility]) [place] body weight 105 [lb_av] 105 [lb_av] [facility] T ([facility]) Oxygen saturation in Arterial blood by Pulse oximetry 99 % 99 % [facility] ([facility]) Respiratory rate 18 /min 18 /min [facility] ( [facility]) Body temperature 98.7 [degF] 98.7 [degF] [facility] ([facility]) Oxygen saturation in Arterial blood by Pulse oximetry 99 % 99 % [facility] ([facility]) [place] body weight 105 [lb_av] 105 [lb_av] [facility] T ([facility]) Systolic blood pressure 120 mm[Hg] 120 mm[Hg] M EDENT ([facility]) Diastolic blood pressure 80 mm[Hg] 80 mm[Hg] [facility] ([facility]) Body height 61.0 [in_i] 61.0 [in_i] [facility] ([facility]) 5'1" Heart rate 73 /min 73 /min [facility] ([facility]) Heart rate 76 /min 76 /min [facility] ([facility]) Respiratory rate 18 /min 18 /min [facility] ( [facility]) Body temperature 98.5 [degF] 98.5 [degF] [facility] ([facility]) Oxygen saturation in Arterial blood by Pulse oximetry 99 % 99 % [facility] ([facility]) [place] body weight 105 [lb_av] 105 [lb_av] [facility] T ([facility]) Systolic blood pressure 122 mm[Hg] 122 mm[Hg] M [facility] ([facility]) Diastolic blood pressure 76 mm[Hg] 76 mm[Hg] [facility] ([facility]) Body height 61.0 [in_i] 61.0 [in_i] [facility] ([facility]) 5'1" Body weight 146.38 [lb_av] 146.38 [lb_av] [facility] T ([facility]) Body mass index (BMI) [Ratio] 27.7 kg/m2 27.7 k g/m2 [facility] ([facility]) Body weight 139.00 [lb_av] 139.00 [lb_av] [facility] T ([facility]) Body mass index (BMI) [Ratio] 26.3 kg/m2 26.3 k g/m2 [facility] ([facility]) Heart rate 90 /min 90 /min [facility] ([facility]) Respiratory rate 18 /min 18 /min [facility] ( [facility]) Body temperature 98.9 [degF] 98.9 [degF] [facility] ([facility]) Oxygen saturation in Arterial blood by Pulse oximetry 99 % 99 % [facility] ([facility]) [place] body weight 105 [lb_av] 105 [lb_av] MED[facility] T ([facility]) Systolic blood pressure 108 mm[Hg] 108 mm[Hg] M [facility]ENT ([facility]) Diastolic blood pressure 64 mm[Hg] 64 mm[Hg] [facility] ([facility]) Body height 61.0 [in_i] 61.0 [in_i] [facility] ([facility]) 5'1" Diastolic blood pressure 68 mm[Hg] 68 mm[Hg] [facility] ([facility]) Systolic blood pressure 126 mm[Hg] 126 mm[Hg] M [facility] ([facility]) Oxygen saturation in Arterial blood by Pulse oximetry 99 % 99 % [facility] ([facility]) [place] body weight 105 [lb_av] 105 [lb_av] [facility] T ([facility]) Body height 61.0 [in_i] 61.0 [in_i] [facility] ([facility]) 5'1" Body weight 140.50 [lb_av] 140.50 [lb_av] [facility] T ([facility]) Body mass index (BMI) [Ratio] 26.5 kg/m2 26.5 k g/m2 [facility] ([facility]) Heart rate 89 /min 89 /min [facility] ([facility]) Respiratory rate 18 /min 18 /min [facility] ( [facility]) Body temperature 98.7 [degF] 98.7 [degF] [facility] ([facility])
[2021-07-31] MEDS ORDERED: ACETAMINOPHEN 325 MG TAB PO ONE (23:15)
[2021-07-31 23:16] LABS: ATYPICAL LYMPH 2 % (0-5); BASOPHILS 1 % (0-1); LYMPHOCYTES 11 % (16-44); MONOCYTES 10 % (0-5); NEUTROPHILS 71 % (28-66)
[2021-07-31 23:17] LABS: PLATELET ESTIMATE NORMAL (NORMAL)
[2021-07-31] MEDS ORDERED: POTASSIUM CHLORIDE 10MEQ SR TABLET PO ONE (23:30)
[2021-07-31] MEDS ORDERED: KCL 10MEQ/100ML SWI (KRUN) 10 MEQ in IV 1 EA IV ONE (23:30)
[2021-07-31 23:33] LABS: BLOOD UREA NITROGEN 6 MG/DL (7-18); CALCIUM LEVEL 7.7 MG/DL (8.5-10.1); CARBON DIOXIDE LEVEL 26 MEQ/L (21-32); CHLORIDE LEVEL 101 MEQ/L (98-107); CREATININE FOR GFR 0.83 MG/DL (0.55-1.30); GLOMERULAR FILTRATION RATE > 60.0 (>60); GLUCOSE, FASTING 103 MG/DL (70-100); SODIUM LEVEL 136 MEQ/L (136-145)
[2021-07-31 23:56] LABS: RSV AMPLIFICATION NEGATIVE (NEGATIVE)
[2021-08-01] MEDS ORDERED: ISOVUE-370 76% 100ML VIAL As Ordered ONE (00:05)
--- NOTE | 2021-08-01 01:16 | REPVR ---
PROCEDURE INFORMATION: Exam: XR Chest Exam date and time: 08/01/2021 12:09 AM Age: 25 years old Clinical indication: Fever TECHNIQUE: Imaging protocol: XR of the chest. Views: 2 views. COMPARISON: 1. CT ABD/PEL W/IV CONTRAST ONLY 07/28/2021 8:[address] ABD/PEL W/IV CONTRAST ONLY 08/01/2021 12:03:25 AM FINDINGS: Lungs: Unremarkable. No consolidation. No pulmonary edema. Pleural spaces: Unremarkable. No pleural effusion. No pneumothorax. Heart/Mediastinum: Unremarkable. No cardiomegaly. Bones/joints: Unremarkable. IMPRESSION: No acute findings. Electronically signed by: Maxwell Hunter On 08/01/2021 01:16:37 AM
--- NOTE | 2021-08-01 01:16 | REPVR ---
PROCEDURE INFORMATION: Exam: CT Abdomen And Pelvis With Contrast Exam date and time: 07/31/2021 12:11 AM Age: 25 years old Clinical indication: Abdominal pain; Localized; Right; Additional info: Right abd pain TECHNIQUE: Imaging protocol: Computed tomography of the abdomen and pelvis with contrast. Radiation optimization: All CT scans at this facility use at least one of these dose optimization techniques: automated exposure control; mA and/or kV adjustment per patient size (includes targeted exams where dose is matched to clinical indication); or iterative reconstruction. Contrast material: ISOVUE 370; Contrast volume: 100 ml; Contrast route: INTRAVENOUS (IV); COMPARISON: 1. CT ABD/PEL W/IV CONTRAST ONLY 07/28/2021 8:27 PM 2. CR Chest, 2 view PA, Lat 07/31/2021 11:58:24 PM FINDINGS: Lungs: The imaged portions of the lung bases are clear. The lungs were not fully imaged. Heart: No cardiomegaly or pericardial effusion. Liver: No liver lesion is seen. The contour of the liver is smooth. The liver is enlarged measures 17.1 cm. Gallbladder and bile ducts: No calcified gallstones are noted. No gallbladder wall thickening, pericholecystic fluid, or pericholecystic inflammatory changes are identified. No dilation of the bile ducts is noted. No calcified stones are seen in the common bile duct. Pancreas: Normal. No dilation of the main pancreatic duct is noted. Spleen: Normal. No splenomegaly is noted. The spleen measures 10.8 cm. Adrenal glands: Normal. No adrenal mass is noted. Kidneys and ureters: There are striated areas of low attenuation in the right kidney, which were also present in the CT abdomen and pelvis on 07/28/2021 and compatible with right pyelonephritis. There is right perinephric stranding that has improved compared to the CT abdomen and pelvis on 07/28/2021. There is persistent right proximal periureteral stranding. There is a 14 mm benign-appearing cyst in the lower half of the right kidney, which is stable compared to the CT abdomen and pelvis on 07/28/2021 and for which imaging follow-up is not necessary. The left kidney is normal in appearance. There is mild right hydroureteronephrosis. No calculi are noted in the renal collecting systems or ureters. Stomach and bowel: There is no evidence for a bowel obstruction, diverticulosis, diverticulitis, colitis, perforated viscus, pneumatosis intestinalis, intussusception, or volvulus. Appendix: Normal. There is no evidence for appendicitis. Intraperitoneal space: There is a small amount of free fluid in the cul-de-sac. No intraperitoneal abscess or free air is noted. Retroperitoneal space: No retroperitoneal abscess. Vasculature: The abdominal aorta is patent, normal in caliber, and there is no dissection. The iliac arteries, common femoral arteries, renal arteries, celiac artery, superior mesenteric artery, and inferior mesenteric artery are patent. The renal veins are patent. Lymph nodes: No enlarged lymph nodes. Urinary bladder: The distended urinary bladder is normal in appearance. No stones or masses are seen in the bladder. Reproductive: The uterus is anterverted and unremarkable. The ovaries are unremarkable. Bones/joints: There is no fracture or dislocation. No suspicious osteolytic or osteoblastic lesion. 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 At the L4-L5 level, there is a broad-based posterior protrusion, but without any significant spinal canal or neural foraminal stenosis. 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 Soft tissues: There is a small fat containing umbilical hernia. IMPRESSION: 1. Right pyelonephritis and right ureteritis, with improvement in the right perinephric inflammatory changes since the CT abdomen and pelvis on 07/28/2021. 2. Mild right hydroureteronephrosis. No calculi in the renal collecting systems, ureters, or urinary bladder. 3. Hepatomegaly. 4. Small fat containing umbilical hernia. Electronically signed by: Maxwell Hunter On 08/01/2021 01:16:21 AM
[2021-08-01] MEDS ORDERED: ACETAMINOPHEN TAB 650MG DOSE (2X325MG) PO PRN (02:05)
--- OUTSIDE RECORDS SUMMARY | 2021-08-01 02:16 | CCD ---
Author Author [facility] Organization [facility] Address Unknown Phone Unavailable Care Team Providers Care Clinical Counselor Name Role Phone Julia Richterina FUEL SYSTEM MAINTENANCE WORKER Unavailable Unavailable Richter, Nirmala FUEL SYSTEM MAINTENANCE WORKER Unavailable Unavailable Richter, Nirmala FUEL SYSTEM MAINTENANCE WORKER Unavailable Unavailable Richter, Nirmala FUEL SYSTEM MAINTENANCE WORKER Unavailable Unavailable Richter, Nirmala FUEL SYSTEM MAINTENANCE WORKER Unavailable Unavailable Richter, Nirmala FUEL SYSTEM MAINTENANCE WORKER Unavailable Unavailable Richter, Nirmala FUEL SYSTEM MAINTENANCE WORKER Unavailable Unavailable Richter, Nirmala FUEL SYSTEM MAINTENANCE WORKER Unavailable Unavailable Richter, Nirmala FUEL SYSTEM MAINTENANCE WORKER Unavailable Unavailable Richter, Nirmala FUEL SYSTEM MAINTENANCE WORKER Unavailable Unavailable Richter, Nirmala FUEL SYSTEM MAINTENANCE WORKER Unavailable Unavailable Richter, Nirmala FUEL SYSTEM MAINTENANCE WORKER Unavailable Unavailable Richter, Nirmala FUEL SYSTEM MAINTENANCE WORKER Unavailable Unavailable O'lazara, A Jordan PA Unavailable [...] is protected by Article 27-F of the [facility] Public Health law. If you continue you may have access to information: Regarding HIV / AIDS; Provided by facilities licensed or operated by the [facility] Office of Mental Health; or Provided by the [facility] Office for People With Developmental Disabilities. If such information is present, then the following [facility] mandated warning applies: This information has [...] law may result in a fine or senior living sentence or both. A general authorization for the release of medical or other information is NOT sufficient authorization for further disc losure. Family History Family Member Name Family Member Gender Family Member Status Date o f Status Description Data Source(s) Unknown Male Problem [facility] ([facility]) Encounters Encounter Providers Location Date Indications Data Source(s ) Outpatient Attender: Nirmala leigh 07/28/2021 12:20:00 PM EST [facility] ([facility] Outpatient Attender: Jordan CARL [facility] 06/28/2021 02:30:00 PM EDT MED[facility] ([facility]) Outpatient Attender: Jordan CARL [facility] 06/06/2021 01:15:00 PM EDT [facility] ([facility]) Outpatient Attender: Jordan CARL [facility] 05/12/2021 11:00:00 AM EDT [facility] ([facility]) Outpatient Attender: Jordan CARL [facility] 12/27/2020 02:30:00 PM EDT [facility] ([facility]) Outpatient Attender: Jordan CARL [facility] 10/06/2020 02:50:00 PM EST [facility] ([facility]) Outpatient Attender: Jordan CARL [facility] 09/28/2020 12:30:00 PM EST [facility] ([facility]) Outpatient Attender: Jordan CARL [facility] 08/22/2020 12:00:00 PM EST [facility] ([facility]) Outpatient Attender: Jordan CARL [facility] 08/15/2020 01:00:00 PM EST [facility] ([facility]) Medications Medication Brand Name Start Date Product Form Dose Route Admi nistrative Instructions Pharmacy Instructions Status Indications Reaction Description Data Source(s) Acetaminophen 325 MG / butalbital 50 MG / Caffeine 40 MG Oral Capsule Butalbital/Acetaminophen/Caffeine 10/07/2020 12:00:00 AM EST ORAL active [facility] ([facility]) Injection Ketorolac Tromethamine Per 15 MG (Toradol) 10/06/2020 12:00:00 AM EST completed [facility] ([facility]) Medication administered onsite Injection Ketorolac Tromethamine Per 15 MG (Toradol) 10/06/2020 12:00:00 AM EST completed [facility] ([facility]) Medication administered onsite Zolpidem tartrate 10 MG Oral Tablet [Ambien] Ambien 12:00:00 AM EST ORAL completed [facility] ([facility]) Spironolactone 50 MG Oral Tablet Spironolactone 09/28/2020 12:00:00 A M EST ORAL active [facility] ([facility]) No Active Medications 08/15/2020 12:00:00 AM EST completed [facility] ([facility]) Meclizine Hydrochloride 12.5 MG Oral Tablet Meclizine HCL 08/15/2020 12:00:00 AM EST ORAL active MED[facility] ([facility]) Insurance Providers Payer name Policy type / Coverage type Policy ID Covered green party ID Covered green party's relationship to crowell Policy Crowell Plan Information [facility] [id number] [facility] Commercial [id number] [facility] [id number] [facility] [id number] [facility] [id number] Problems, Conditions, and Diagnoses No Information Surgeries/Procedures Procedure Description Date Indications Data Source(s) OFFICE OUTPATIENT NEW 30 MINUTES 07/28/2021 12:00:00 A M EST [facility] ([facility], [facility]) OFFICE OUTPATIENT VISIT 15 MINUTES 06/28/2021 12:00:00 AM EDT [facility] ([facility]) PERIODIC PREVENTIVE MED EST PATIENT 18-39 YRS 06/06/20 12:00:00 AM EDT [facility] ([facility]) OFFICE OUTPATIENT VISIT 15 MINUTES 05/12/2021 12:00:00 AM EDT [facility] ([facility]) OFFICE OUTPATIENT VISIT 15 MINUTES 12/27/2020 12:00:00 AM EDT [facility] ([facility]) Remove Impact Cerumen Irrigati 08/15/2020 12:00:00 AM EST [facility] ([facility]) Results ID Date Data Source [id number] 07/28/2021 05:29:00 PM EST [facility] ([facility]) Name Value Range Interpretation Code Description Data Zeynep rce(s) Supporting Document(s) Bacteria identified in Urine by Culture Laboratory test result [facility] ([facility]) ID Date Data Source [id number] 10/06/2020 03:20:00 PM EST [facility] ([facility]) Name Value Range Interpretation Code Description Data Zeynep rce(s) Supporting Document(s) Respiratory Panel Laboratory test result [facility] ([facility]) This respiratory PCR panel detects Influ tip [...] - SARS-CoV-2 (COVID19) ID Date Data Source [id number] 10/06/2020 03:20:00 PM EST [facility] Name Value Range Interpretation Code Description Data [facility] Supporting Document(s) SARS-CoV-2 (COVID 19) NEGATIVE - SARS-CoV-2 (COVID19) [facility] This lab was ordered by [facility] a nd reported by [facility]. ID Date Data Source [id number] 08/16/2020 01:55:00 PM EST [facility] ([facility]) Name Value Range Interpretation Code Description Data Zeynep rce(s) Supporting Document(s) Tissue transglutaminase IgG Ab [Units/volume] in Serum Labor atory test result 0-5 Normal (applies to non-numeric results) [facility] ([facility]) Negative 0 - 5 Weak Positive 6 - 9 Positive >9 Tissue transglutaminase IgA Ab [Units/volume] in Serum Labor atory test result 0-3 Normal (applies to non-numeric results) [facility] ([facility]) Negative 0 - 3 Weak Positive 4 - 10 Positive >10 . Tissue Transglutaminase (tTG) has been identified as the endomysial antigen. Studies have demonstr- ated that endomysial IgA antibodies have over 99% specificity for gluten sensitive enteropathy. IgA [Mass/volume] in Serum or Plasma 306.0 mg/dL 70-400 Normal (applies to non- numeric results) [facility] ([facility]) ID Date Data Source [id number] 08/16/2020 01:55:00 PM EST [facility] ([facility]) Name Value Range Interpretation Code Description Data Zeynep rce(s) Supporting Document(s) Vitamin B12 Level 614 pg/mL Normal (applies to non-numeri c results) [facility] ([facility]) VITAMIN B12 NORMAL RANGE NORMAL 247 - 911 PG/ML INDETERMINATE 211 - 246 PG/ML DEFICIENT LESS THAN 211 PG/ML Folate 22.9 ng/mL Normal (applies to non-numeric resul ts) [facility] ([facility]) FOLATE NORMAL RANGE NORMAL GREATER THAN 5.4 NG/ML INDETERMINATE 3.4-5.4 NG/ML DEFICIENT LESS THAN 3.4 NG/ML ID Date Data Source [id number] 08/16/2020 01:55:00 PM EST [facility] ([facility]) Name Value Range Interpretation Code Description Data Zeynep rce(s) Supporting Document(s) [place] (Hep2) Laboratory test result Normal (applies to non-n umeric results) [facility]) <content>Negative <1:80</content>
<content>Borderline 1:80</content>
<content>Positive >1:80</content>
<content>Performed at: RN - [facility] [place]</content>
<content>[address] [place] [id number]</content>
<content>Electric Transfer Operator: Dulce Contreras MD, Phone: [phone]</content>
<content></content> ID Date Data Source [id number] 08/16/2020 01:55:00 PM EST [facility] ([facility]) Name Value Range Interpretation Code Description Data Zeynep rce(s) Supporting Document(s) Thyroid Stimulating Hormone 0.999 uIU/ML 0.358-3.740 Norm al (applies to non- numeric results) [facility] ([facility]) Free T4 1.05 ng/dL 0.76-1.46 Normal (applies to non-numeric resul ts) [facility] ([facility]) ID Date Data Source [id number] 08/16/2020 01:55:00 PM EST [facility] ([facility]) Name Value Range Interpretation Code Description Data Zeynep rce(s) Supporting Document(s) Ferritin [Mass/volume] in Serum or Plasma 36 ng/mL 8-252 Normal (applies to non- numeric results) [facility] ([facility]) ID Date Data Source [id number] 08/16/2020 01:55:00 PM EST [facility] ([facility]) Name Value Range Interpretation Code Description Data Zeynep rce(s) Supporting Document(s) Iron (Fe) 88 ug/dL 50-170 Normal (applies to non-numeric resul ts) [facility] ([facility]) Total Iron Binding Capacity 315 ug/dL 250-450 Norm al (applies to non-numeric results) [facility] ([facility]) Percent Saturation 27.9 % 13.2-45.0 Normal (applies to non-numer ic results) [facility] ([facility]) ID Date Data Source [id number] 08/16/2020 01:55:00 PM EST [facility] ([facility]) Name Value Range Interpretation Code Description Data Zeynep rce(s) Supporting Document(s) Blood Urea Nitrogen 8 mg/dL 7-18 Normal (applies to non-nume pratik results) [facility] ([facility]) Glucose, Fasting 95 mg/dL 70-100 Normal (applies to non-numeric results) [facility] ([facility]) Glomerular Filtration Rate Laboratory test result Normal (applies to non- numeric results) [facility] ([facility]) <content>Units are mL/min/1.73 m2</content>
<content></content>
<content>Chronic Kidney Disease Staging per NKF:</content>
<content></content>
<content>Stage I & II GFR >=60 Normal to Mildly Decreased</content>
<content>Stage III GFR 30- 59 Moderately Decreased</content>
<content>Stage IV GFR 15-29 Severely Decreased</content>
<content>Stage V GFR <15 Very Little GFR Left</content>
<content>ESRD GFR <15 on PUBLIC SPACE ATTENDANT</content>
<content></content> Creatinine For GFR 0.72 mg/dL 0.55-1.30 Normal (applies to non -numeric results) [facility] ([facility]) Sodium Level 138 meq/L 136-145 Normal (applies to non-numeric res ults) [facility] ([facility]) Potassium Serum 4.8 meq/L 3.5-5.1 Normal (applies to non-numeric results) [facility] ([facility]) Carbon Dioxide Level 28 meq/L 21-32 Normal (applies to non-num ron results) [facility] ([facility]) Chloride Level 108 meq/L 98-107 Above high normal [facility] ([facility]) Calcium Level 9.4 mg/dL 8.5-10.1 Normal (applies to non-numeric re sults) [facility] ([facility]) Anion Gap 2 meq/L 8-16 Below low normal [facility] ( [facility]) Ast/Sgot 12 U/L 7-37 Normal (applies to non-numeric resul ts) [facility] ([facility]) Alt/SGPT 11 U/L 12-78 Below low normal [facility] ( [facility]) Bilirubin,Total 0.5 mg/dL 0.2-1.0 Normal (applies to non-numeric results) [facility] ([facility]) Alkaline Phosphatase 56 U/L 45-117 Normal (applies to non-num ron results) [facility] ([facility]) Albumin 4.2 GM/DL 3.2-5.2 Normal (applies to non-numeric resul ts) [facility] ([facility]) Total Protein 7.5 GM/DL 6.4-8.2 Normal (applies to non-numeric re sults) [facility] ([facility]) Albumin/Globulin Ratio 1.3 1.2-2.2 Normal (applies to non-n umeric results) [facility] ([facility]) ID Date Data Source [id number] 08/16/2020 01:55:00 PM EST [facility] ([facility]) Name Value Range Interpretation Code Description Data Zeynep rce(s) Supporting Document(s) White Blood Count 4.6 10 4.0-10.0 Normal (applies to non-numeri c results) [facility] ([facility]) Red Blood Count 4.66 10 4.00-5.40 Normal (applies to non-numeric results) [facility] ([facility]) Hematocrit 41.8 % 36.0-47.0 Normal (applies to non-numeric resul ts) [facility] ([facility]) Hemoglobin 13.2 g/dL 12.0-15.5 Normal (applies to non-numeric resul ts) [facility] ([facility]) Mean Corpuscular Volume 89.7 fl 80.0-96.0 Normal ( applies to non-numeric results) [facility] ([facility]) Mean Corpuscular Hemoglobin 28.3 pg 27.0-33.0 Norm al (applies to non-numeric results) [facility] ([facility]) Mean Corpuscular HGB Conc 31.6 g/dL 32.0-36.5 Below low [facility] Red Cell Distribution Width 13.7 % 11.5-14.5 Norm al (applies to non-numeric results) [facility] ([facility]) Platelet Count, Automated 209 10 150-450 Normal (applies to non-numeric results) [facility] ([facility]) Neutrophils % 59.1 % 36.0-66.0 Normal (applies to non-numeric re sults) [facility] ([facility]) Eos % 0.7 % 0.0-3.0 Normal (applies to non-numeric resul ts) [facility] ([facility]) Lymph % 29.3 % 24.0-44.0 Normal (applies to non-numeric resul ts) [facility] ([facility]) [place] % 10.0 % 0.0-5.0 Above high normal [facility] ([facility]) Immature Granulocyte % 0.2 % 0-3.0 Normal (applies to non-n umeric results) [facility] ([facility]) Baso % 0.7 % 0.0-1.0 Normal (applies to non-numeric resul ts) [facility] ([facility]) Neutrophils # 2.7 10 1.5-8.5 Normal (applies to non-numeric re sults) [facility] ([facility]) Nucleated Red Blood Cell % 0.0 % 0-0 Normal (applies to n on-numeric results) [facility] ([facility]) Lymph # 1.4 10 1.5-5.0 Below low normal [facility] ( [facility]) [place] # 0.5 10 0.0-0.8 Normal (applies to non-numeric resul ts) [facility] ([facility]) Baso # 0.0 10 0.0-0.2 Normal (applies to non-numeric resul ts) [facility] ([facility]) Eos # 0.0 10 0.0-0.5 Normal (applies to non-numeric resul ts) [facility] ([facility]) Procedure Social History No Information Vital Signs ID Date Data Source UNK Name Value Range Interpretation Code Description Data Source(s) Systolic blood pressure 110 mm[Hg] 110 mm[Hg] M EDENT ([facility]) Diastolic blood pressure 74 mm[Hg] 74 mm[Hg] [facility] ([facility], [facility]) Heart rate 135 /min 135 /min [facility] ([facility], [facility]) Respiratory rate 18 /min 18 /min [facility] ( [facility], [facility]) Oxygen saturation in Arterial blood by Pulse oximetry 97 % 97 % [facility] ([facility], [facility]) Body temperature 102.4 [degF] 102.4 [degF] MEDE NT ([facility], [facility]) Body weight 165.00 [lb_av] 165.00 [lb_av] MEDEN T ([facility], [facility]) Body height 64 [in_i] 64 [in_i] [facility] ([facility], [facility]) 5'4" Body mass index (BMI) [Ratio] 28.3 kg/m2 28.3 k g/m2 [facility] ([facility]) Systolic blood pressure 128 mm[Hg] 128 mm[Hg] EDENT ([facility]) Diastolic blood pressure 68 mm[Hg] 68 mm[Hg] [facility] ([facility]) Body height 61.0 [in_i] 61.0 [in_i] MED[facility] ([facility]) 5'1" Body weight 167.38 [lb_av] 167.38 [lb_av] MEDEN T ([facility]) Body mass index (BMI) [Ratio] 31.6 kg/m2 31.6 k g/m2 [facility] ([facility]) Body temperature 98.2 [degF] 98.2 [degF] [facility] ([facility]) Oxygen saturation in Arterial blood by Pulse oximetry 98 % 98 % [facility] ([facility]) [place] body weight 105 [lb_av] 105 [lb_av] MEDEN T ([facility]) Heart rate 88 /min 88 /min [facility] ([facility]) Respiratory rate 12 /min 12 /min [facility] ( [facility]) Body height 61.0 [in_i] 61.0 [in_i] [facility] ([facility]) 5'1" Body weight 165.00 [lb_av] 165.00 [lb_av] MED[facility] T ([facility]) Body mass index (BMI) [Ratio] 31.2 kg/m2 31.2 k g/m2 [facility] ([facility]) Heart rate 76 /min 76 /min [facility] ([facility]) Respiratory rate 20 /min 20 /min [facility] ( [facility]) Body temperature 98.6 [degF] 98.6 [degF] [facility] ([facility]) Oxygen saturation in Arterial blood by Pulse oximetry 99 % 99 % [facility] ([facility]) [place] body weight 105 [lb_av] 105 [lb_av] MEDEN T ([facility]) Systolic blood pressure 118 mm[Hg] 118 mm[Hg] M EDENT ([facility]) Diastolic blood pressure 76 mm[Hg] 76 mm[Hg] [facility] ([facility]) Systolic blood pressure 114 mm[Hg] 114 mm[Hg] M EDENT ([facility]) Diastolic blood pressure 72 mm[Hg] 72 mm[Hg] [facility] ([facility]) Body height 61.0 [in_i] 61.0 [in_i] MED[facility] ([facility]) 5'1" Body weight 163.25 [lb_av] 163.25 [lb_av] MEDEN T ([facility]) Body mass index (BMI) [Ratio] 30.8 kg/m2 30.8 k g/m2 [facility] ([facility]) Heart rate 77 /min 77 /min [facility] ([facility]) Respiratory rate 18 /min 18 /min [facility] ( [facility]) Body temperature 99.1 [degF] 99.1 [degF] [facility] ([facility]) Oxygen saturation in Arterial blood by Pulse oximetry 100 % 100 % [facility] ([facility]) [place] body weight 105 [lb_av] 105 [lb_av] MEDEN T ([facility]) Systolic blood pressure 108 mm[Hg] 108 mm[Hg] M EDENT ([facility]) Diastolic blood pressure 70 mm[Hg] 70 mm[Hg] [facility] ([facility]) Body height 61.0 [in_i] 61.0 [in_i] [facility] ([facility]) 5'1" Body weight 152.38 [lb_av] 152.38 [lb_av] MED[facility] T ([facility]) Body mass index (BMI) [Ratio] 28.8 kg/m2 28.8 k g/m2 [facility] ([facility]) Heart rate 78 /min 78 /min [facility] ([facility]) Respiratory rate 18 /min 18 /min [facility] ( [facility]) Body temperature 97.8 [degF] 97.8 [degF] [facility] ([facility]) Oxygen saturation in Arterial blood by Pulse oximetry 99 % 99 % [facility] ([facility]) [place] body weight 105 [lb_av] 105 [lb_av] MEDEN T ([facility]) Respiratory rate 18 /min 18 /min [facility] ( [facility]) Body temperature 98.7 [degF] 98.7 [degF] [facility] ([facility]) Oxygen saturation in Arterial blood by Pulse oximetry 99 % 99 % [facility] ([facility]) [place] body weight 105 [lb_av] 105 [lb_av] MEDEN T ([facility]) Systolic blood pressure 120 mm[Hg] 120 mm[Hg] M EDENT ([facility]) Diastolic blood pressure 80 mm[Hg] 80 mm[Hg] [facility] ([facility]) Body height 61.0 [in_i] 61.0 [in_i] MED[facility] ([facility]) 5'1" Heart rate 73 /min 73 /min [facility] ([facility]) Heart rate 76 /min 76 /min [facility] ([facility]) Respiratory rate 18 /min 18 /min [facility] ( [facility]) Body temperature 98.5 [degF] 98.5 [degF] [facility] ([facility]) Oxygen saturation in Arterial blood by Pulse oximetry 99 % 99 % [facility] ([facility]) [place] body weight 105 [lb_av] 105 [lb_av] MED[facility] T ([facility]) Systolic blood pressure 122 mm[Hg] 122 mm[Hg] M EDENT ([facility]) Diastolic blood pressure 76 mm[Hg] 76 mm[Hg] [facility] ([facility]) Body height 61.0 [in_i] 61.0 [in_i] [facility] ([facility]) 5'1" Body weight 146.38 [lb_av] 146.38 [lb_av] MED[facility] T ([facility]) Body mass index (BMI) [Ratio] 27.7 kg/m2 27.7 k g/m2 [facility] ([facility]) Body weight 139.00 [lb_av] 139.00 [lb_av] MED[facility] T ([facility]) Body mass index (BMI) [Ratio] 26.3 kg/m2 26.3 k g/m2 [facility] ([facility]) Heart rate 90 /min 90 /min [facility] ([facility]) Respiratory rate 18 /min 18 /min MEDENT ( [facility]) Body temperature 98.9 [degF] 98.9 [degF] MEDENT ([facility]) Oxygen saturation in Arterial blood by Pulse oximetry 99 % 99 % MEDENT ([facility]) [place] body weight 105 [lb_av] 105 [lb_av] MEDEN T ([facility]) Systolic blood pressure 108 mm[Hg] 108 mm[Hg] M EDENT ([facility]) Diastolic blood pressure 64 mm[Hg] 64 mm[Hg] MED[facility] ([facility]) Body height 61.0 [in_i] 61.0 [in_i] MEDENT ([facility]) 5'1" Systolic blood pressure 126 mm[Hg] 126 mm[Hg] M EDENT ([facility]) Diastolic blood pressure 68 mm[Hg] 68 mm[Hg] MED[facility] ([facility]) Body height 61.0 [in_i] 61.0 [in_i] MEDENT ([facility]) 5'1" Body weight 140.50 [lb_av] 140.50 [lb_av] MEDEN T ([facility]) Body mass index (BMI) [Ratio] 26.5 kg/m2 26.5 k g/m2 MED[facility] ([facility]) Heart rate 89 /min 89 /min MED[facility] ([facility]) Respiratory rate 18 /min 18 /min MED[facility] ( [facility]) Body temperature 98.7 [degF] 98.7 [degF] MEDENT ([facility]) Oxygen saturation in Arterial blood by Pulse oximetry 99 % 99 % MED[facility] ([facility]) [place] body weight 105 [lb_av] 105 [lb_av] MEDEN T ([facility])
[2021-08-01 02:38] LABS: MAGNESIUM LEVEL 2.1 MG/DL (1.8-2.4)
--- NOTE | 2021-08-01 02:39 | HPEPDOC ---
General Date of Admission Aug 01, 2021 at 02:02 Date of Service: Aug 01, 2021 Primary Care Physician: JENN POLO DO Attending Physician: TOBI PATTERSON MD Chief Complaint The patient is a 25-year-old female admitted with a reason for visit of Pyelonephritis. Source: Patient Exam Limitations: No limitations Timing/Duration: Day(s) (3) Severity: Moderate Associated Symptoms: Nausea History of Present Illness Patient is a 25-year-old female without a significant past medical history who presents with right-sided back pain that radiates into her right flank, rated at 7-10 out of 10 pain that is not alleviated by anything and oscillates between these pain ratings randomly. Patient reports that she was prescribed Tramadol for the pain by her PCP which has not alleviated symptoms. Patient reports that she is unsure whether she has hematuria because she is currently menstruating. Patient reports that symptoms began 7 days ago at which the symptoms were just a slight pinching feeling of the right side of her back. Patient reports that she has been seen by her primary care physician, urgent care, and [facility]. Patient reports that she came to the ER 3 days ago at which time she was diagnosed with right-sided pyelonephritis, given ciprofloxacin and discharged to go home. Patient reports that she has been taking her ciprofloxacin but presented back to the ER today due to intractable right-sided pain and nausea. Patient reports a decreased appetite for the last 3 days from this pain. Home Medications Scheduled Ciprofloxacin HCl (Cipro) 500 Mg Tablet, 500 MG PO BID Scheduled PRN Tramadol HCl (Tramadol HCl) 50 Mg Tablet, 50 MG PO Q6HP PRN for pain, (Reported) Allergies Coded Allergies: No Known Allergies (Unverified , 04/20/19) Past Medical History Medical History Denies any history Surgical History deliveries for 4 children, last delivery 04/20/2019 Family History Significant Family History: No pertinent family hx Social History * Smoker: Denies Alcohol: other (occasionally, 3 beers on some weekends) Drugs: denies Pets in the home: Dog(s), Other (9 chickens) Psychosocial History: No pertinent psych hx A-FIB/CHADSVASC A-FIB History Current/History of A-Fib/PAF?: No Current PO Anticoag Therapy: No Review of Systems Constitutional: Denies: Chills, Fever, Malaise, Night Sweats, Weakness, Fatigue, Weight Loss, Lethargy, Other Eyes: Denies: Pain, Vision change, Conjunctivae inflammation, Eyelid inflammat ion, Redness, Other ENT: Denies: Head Aches, Ear Pain, Dysphagia, Sinus Congestion, Post Nasal Drip, Sore Throat, Epistaxis, Other Symptoms Skin: Denies: Rash, Lesions, Jaundice, Bruising, Itching, Dry, Breakdown, Nail Changes, Other Pulmonary: Denies: Dyspnea, Cough, Pleuritic Chest Pain, Other Symptoms Cardiovascular: Denies: Chest Pain, Palpitations, Orthopnea, Paroxysmal Noc. Dyspnea, Edema, Lt Headedness, Other Symptoms Gastrointestinal: Reports: Nausea; Denies: Vomiting, Abdominal Pain, Diarrhea, Constipation, Melena, Hematochezia, Other Symptoms Hematologic: Denies: Bruising, Bleeding Excessively, Petecchia, Purpura, Enlarged Lymph Nodes, Other Hematologic Endocrine: Denies: Polydipsia, Polyphagia, Polyuria, Heat Intolerance, Cold Intolerance, Other Endocrine Sx Neurological: Denies: Weakness, Numbness, Incoordination, Change in speech, Confusion, Seizures, Other Symptoms Physical Examination General Exam: Positive: Alert, Cooperative, No Acute Distress Eye Exam: Positive: Conjunctiva & lids normal, EOMI ENT Exam: Positive: Atraumatic, Mucous membr. moist/pink, Pharynx Normal Neck Exam: Positive: Supple Chest Exam: Positive: Clear to auscultation, Normal air movement Heart Exam: Positive: Rate Normal Abdomen Exam: Positive: Normal bowel sounds Psych Exam: Positive: Mental status NL Vital Signs Vital Signs Date Time Temp Pulse Resp B/P (MAP) Pulse Ox O2 Delivery O2 Flow Rate FiO2 08/01/21 01:26 98.0 72 16 111/58 (75) 98 07/31/21 20:27 Room Air Laboratory Data Labs 24H Laboratory Tests 2 07/31/21 22:05: Neutrophils (%) (Auto) , Nucleated Red Blood Cells % (auto) 0.0, Neutrophils 71H , Band Neutrophils 5, Lymphocytes (Manual) 11L, Monocytes (Manual) 10H, Basophils (Manual) 1, Atypical Lymphocytes 2, Red Blood Cell Morphology NORMAL, Platelet Estimate NORMAL, Urine Color YELLOW, Urine Appearance CLEAR, Urine pH 7.0, Urine Specific [place] 1.004, Urine Protein NEGATIVE, Urine Glucose (UA) NEGATIVE, Urine Ketones NEGATIVE, Urine Blood NEGATIVE, Urine Nitrite NEGATIVE, Urine Bilirubin NEGATIVE, Urine Urobilinogen 2.0H, Urine Leukocyte Esterase TRACEH, Urine WBC (Auto) 3, Urine RBC (Auto) 1, Urine Hyaline Casts (Auto) 0, Urine Bacteria (Auto) NEGATIVE, Urine Squamous Epithelial Cells 0, Urine Sperm (Auto) , Anion Gap 9, Glomerular Filtration Rate > 60.0, Lactic Acid Level 0.8, Calcium Level 7.7L, Total Bilirubin 0.4, Direct Bilirubin 0.2, Aspartate Amino Transf (AST/SGOT) 51H, Alanine Aminotransferase (ALT/SGPT) 29, Alkaline Phosphatase 143H, Total Protein 6.1L, Albumin 2.4L, Albumin/Globulin Ratio 0.6L, Lipase 119, Coronavirus (COVID-19)(PCR) NEGATIVE, Influenza Type A (RT-PCR) NEGATIVE, Influenza Type B (RT-PCR) NEGATIVE, Respiratory Syncytial Virus (PCR) NEGATIVE 07/31/21 22:27: POC Beta HCG, Quantitative < 5.0 07/31/21 23:15: POC Glucose (Misc Panel) 103, POC Sodium (Misc Panel) 134L, POC Potassium (Misc Panel) 2.7*L, POC Chloride (Misc Panel) 97L, POC Total CO2 (Misc Panel) 23.0, POC Blood Urea Nitrogen (Misc Panel 4L, POC Ionized Calcium (Misc Panel) 4.4L, POC Creatinine (Misc Panel) 0.8, POC Hematocrit (Misc Panel) 31.0L 08/01/21 02:03: CBC/BMP Laboratory Tests 07/31/21 22:05 Microbiology Microbiology 07/31/21 Urine Culture, Received Pending 07/31/21 Blood Culture, Received Pending 07/31/21 Blood Culture, Received Pending Assessment/Plan #Pyelonephritis with mild right-sided hydronephrosis, improving Patient does not meet sepsis criteria according to qSOFA score of 0 points One dose of IV meropenem was administered in the ER. IV Rocephin will be started 08/01/2021, 0600, per urology consult. IV ketorolac for as needed pain ordered, patient took tramadol for pain prescribed by PCP that did not help with pain at home Continue to monitor daily intake and output Continue to monitor renal function via CMP Continue to monitor daily CBC with differential Urology has been consulted, who will see patient in the a.m. #Elevated alkaline phosphatase In the setting of acute pyelonephritis Continue to monitor CMP #Hypokalemia Patient received 1 Krun in the ER Magnesium level ordered Continue to monitor electrolytes via CMP #Fever secondary to pyelonephritis Patient's fever was well managed with acetaminophen use in the ER Continue acetaminophen as needed for fever #Dizziness Likely secondary to dehydration Continue IV fluids Fall precautions until can investigate whether patient can ambulate without assist. CODE STATUS: DNR/DNI, paperwork being filled out in the ED Patient's is person to contact: Eren Cheng-[phone]. Disposition: Pending urology input. Plan / VTE VTE Prophylaxis Ordered?: Yes (Teds and sequentials) GME ATTESTATION GME ATTESTATION My faculty preceptor for this patient encounter was physically present during the encounter and was fully available. All aspects of the patient interview, examination, medical decision making process, and medical care plan development were reviewed and approved by the faculty preceptor. The faculty preceptor is aware and concurs with the plan as stated in the body of this note and will attest to such by his/her cosignature. Godfrey Lopez DO Aug 01, 2021 02:39
[2021-08-01] MEDS ORDERED: TRAM50TA2 PO (03:08)
[2021-08-01] MEDS ORDERED: CIPR250T3 PO (03:08)
[2021-08-01] MEDS ORDERED: HOME MED LIST COMPLETE! XX SCH (03:10)
[2021-08-01 03:44] LABS: GC DNA AMPLIFICATION NEGATIVE (NEGATIVE)
[2021-08-01 04:30] VITALS: BP 102/58
[2021-08-01] MEDS: cefTRIAXone SOD 1 GM in D5W MINI-BAG PLUS 50 ML IV SCH (06:03)
[2021-08-01 07:33] LABS: HEMATOCRIT 29.6 % (36.0-47.0); HEMOGLOBIN 9.9 g/dl (12.0-15.5); MEAN CORPUSCULAR HEMOGLOBIN 28.4 pg (27.0-33.0); MEAN CORPUSCULAR HGB CONC 33.4 g/dl (32.0-36.5); MEAN CORPUSCULAR VOLUME 84.8 fl (80.0-96.0); PLATELET COUNT, AUTOMATED 166 10^3/uL (150-450); RED BLOOD COUNT 3.49 10^6/uL (4.00-5.40); WHITE BLOOD COUNT 5.5 10^3/uL (4.0-10.0)
--- NOTE | 2021-08-01 07:49 | SMCUROLCON ---
Urology Consultation General Date of Consultation 08/01/21 Reason For Consultation asked to see re right pyelonephritis and right hydronephrosis History of Present Illness The patient is a -year-old with a past medical history for . Medications Current Medications Current Medications Medications (Trade) Dose Ordered Sig/[place]on Route PRN Reason Start Time Stop Time Status Last Admin Dose Admin Acetaminophen (Tylenol Tab) 650 mg Q4H PRN PO MILD PAIN or TEMP > 101 08/01/21 02:05 Ceftriaxone Sodium 1 gm/ Dextrose 50 ml @ 100 mls/hr Q24H IV 08/01/21 06:00 08/05/21 06:00 08/01/21 06:03 Home Med (Home Med List Complete!) ASDIRECTED XX 08/01/21 03:10 08/01/21 03:10 DC Ketorolac Tromethamine (ToRADol) 30 mg Q6HP PRN IV PAIN LEVEL 5-10 08/01/21 02:15 08/06/21 02:14 Meropenem 1 gm/IV Miscellaneous Supplies 50 ml @ 100 mls/hr Q8H IV 08/01/21 08:00 Cancel Ondansetron HCl (ZOFRAN INJection) 4 mg Q4HP PRN IV NAUSEA OR VOMITING 08/01/21 02:15 Allergies Allergies: Coded Allergies: No Known Allergies (Unverified , 04/20/19) Vital Signs/I&O Vital Signs Date Time Temp Pulse Resp B/P (MAP) Pulse Ox O2 Delivery O2 Flow Rate FiO2 08/01/21 04:30 98.0 65 16 102/58 (73) 99 Room Air I&O- Last 24 Hours up to 6 AM 08/01/21 06:00 Intake Total 1150 ml Balance 1150 ml Laboratory Data 24H Labs Laboratory Tests 2 07/31/21 22:05: Neutrophils (%) (Auto) , Nucleated Red Blood Cells % (auto) 0.0, Neutrophils 71H, Band Neutrophils 5, Lymphocytes (Manual) 11L, Monocytes (Manual) 10H, Basophils (Manual) 1, Atypical Lymphocytes 2, Red Blood Cell Morphology NORMAL, Platelet Estimate NORMAL, Urine Color YELLOW, Urine Appearance CLEAR, Urine pH 7.0, Urine Specific [place] 1.004, Urine Protein NEGATIVE, Urine Glucose (UA) NEGATIVE, Urine Ketones NEGATIVE, Urine Blood NEGATIVE, Urine Nitrite NEGATIVE, Urine Bilirubin NEGATIVE, Urine Urobilinogen 2.0H, Urine Leukocyte Esterase TRACEH, Urine WBC (Auto) 3, Urine RBC (Auto) 1, Urine Hyaline Casts (Auto) 0, Urine Bacteria (Auto) NEGATIVE, Urine Squamous Epithelial Cells 0, Urine Sperm (Auto) , Anion Gap 9, Glomerular Filtration Rate > 60.0, Lactic Acid Level 0.8, Calcium Level 7.7L, Magnesium Level 2.1, Total Bilirubin 0.4, Direct Bilirubin 0.2, Aspartate Amino Transf (AST/SGOT) 51H, Alanine Aminotransferase (ALT/SGPT) 29, Alkaline Phosphatase 143H, Total Protein 6.1L, Albumin 2.4L, Albumin/Globulin Ratio 0.6L, Lipase 119, Coronavirus (COVID-19)(PCR) NEGATIVE, Influenza Type A (RT-PCR) NEGATIVE, Influenza Type B (RT-PCR) NEGATIVE, Respiratory Syncytial Virus (PCR) NEGATIVE 07/31/21 22:27: POC Beta HCG, Quantitative < 5.0 07/31/21 23:15: POC Glucose (Misc Panel) 103, POC Sodium (Misc Panel) 134L, POC Potassium (Misc Panel) 2.7*L, POC Chloride (Misc Panel) 97L, POC Total CO2 (Misc Panel) 23.0, POC Blood Urea Nitrogen (Misc Panel 4L, POC Ionized Calcium (Misc Panel) 4.4L, POC Creatinine (Misc Panel) 0.8, POC Hematocrit (Misc Panel) 31.0L 08/01/21 02:03: Chlamydia trachomatis DNA (WISAM) NEGATIVE, Neisseria gonorrhoeae DNA (WISAM) NEGA TIVE, Trichomonas vaginalis (PCR) NOT DETECTED 08/01/21 07:00: Neutrophils (%) (Auto) , Nucleated Red Blood Cells % (auto) 0.0 CBC/BMP Laboratory Tests 07/31/21 22:05 08/01/21 07:00 Microbiology Microbiology 07/31/21 Urine Culture, Received Pending 07/31/21 Blood Culture, Received Pending 07/31/21 Blood Culture, Received Pending Plan chart reviewed imaging reviewed at this point I would hold off on stent placement - mild dilatation, no stone, wbc decreasing treat pyelonephritis will see pt later today CAMDEN CHAMBERS MD Aug 01, 2021 07:48
[2021-08-01 07:54] LABS: ALBUMIN 2.1 GM/DL (3.2-5.2); ALT/SGPT 24 U/L (12-78); BILIRUBIN,TOTAL 0.3 MG/DL (0.2-1.0); BLOOD UREA NITROGEN 7 MG/DL (7-18); CALCIUM LEVEL 7.8 MG/DL (8.5-10.1); CARBON DIOXIDE LEVEL 27 MEQ/L (21-32); CHLORIDE LEVEL 107 MEQ/L (98-107); GLOMERULAR FILTRATION RATE > 60.0 (>60); GLUCOSE, FASTING 109 MG/DL (70-100); POTASSIUM SERUM 3.4 MEQ/L (3.5-5.1); SODIUM LEVEL 141 MEQ/L (136-145); TOTAL PROTEIN 6.3 GM/DL (6.4-8.2)
[2021-08-01] MEDS ORDERED: MEROPENEM INJ 1 GM in IV 1 EA IV SCH (08:00)
[2021-08-01 08:25] LABS: ANISOCYTOSIS 1+; ATYPICAL LYMPH 2 % (0-5); LYMPHOCYTES 15 % (16-44); MONOCYTES 11 % (0-5); NEUTROPHILS 72 % (28-66); PLATELET ESTIMATE NORMAL (NORMAL)
[2021-08-01] MEDS: KETOROLAC 30 MG/ML 1ML VIAL IV PRN ×3 (09:42→22:35)
[2021-08-01] MEDS ORDERED: PERCOCET 5MG/325MG TAB PO PRN (09:45)
[2021-08-01] MEDS: ONDANSETRON 4MG/2ML VIAL IV PRN ×3 (09:56→22:35)
[2021-08-01] MEDS: NS 1,000 ML IV SCH ×2 (10:00→22:34)
[2021-08-01] MEDS ORDERED: POTASSIUM CHLORIDE 10MEQ SR TABLET PO ONE (12:00)
--- NOTE | 2021-08-01 13:36 | IPNPDOC ---
Text Note Date of Service Subjective: Regina Cheng was admitted last night due to pyelonephritis. Overnight patient describes severe right flank pain and suprapubic tenderness that has not gone away. Has been experiencing shortness of breath, and new onset urge incontinence, patient describes intense urge to use restroom but has difficulty getting there in time. Flank pain rated as "11"/10. Has urinated twice since admission. The ketorolac has helped with her pain. TOMASZ; - HEENT: Positive for headaches - Cardiac: Denies chest pain - Respiratory: Describes SOB at rest since her symptoms began. - GI: describes lower abdominal pain that radiates to flank, patient localized to RLQ. Suprapubic pain. - Musculoskeletal: Right flank pain extending to abdomen - Extremities: Sensation intact, no lymphedema noted. - Genitourinary: Urinary urge incontinence, denies dysuria. Objective: - General: Patient was cold, wrapped in multiple blankets, asking for pain relief. - HEENT: Normocephalic, moist mucous membranes, no conjunctival effusion - Cardiac: No murmurs or palpitations, heart sounds normal. - Respiratory: CTA, no rales, rhonchi, or wheezing. - Abdominal: Suprapubic tenderness, RLQ pain upon palpation that radiates to right flank. - Neuro: Muscle strength 5/5 bilaterally, sensation intact. - MSK: CVA tenderness upon elicitation on the right Assessment: 25 year old female with a history of UTI's presents with cc of right flank pain and fever, CT findings suggestive of pyelonephritis and a fever of 103.8. Plan #. Pyelonephritis - Flank and abdominal pain, urge incontinence and CVA tenderness - Continue treating with ceftriaxone IV and gentle hydration 80 ml/hr - Awaiting urine and blood cultures, may change antibiotics - Continue Ketorolac, acetaminophen and Zofran as needed - Urinary urge incontinence The patient was seen on 08/01/21. VS,Roselia, I+O VS, aVlariee, I+O Laboratory Tests 07/31/21 22:05 08/01/21 07:00 Vital Signs Date Time Temp Pulse Resp B/P (MAP) Pulse Ox O2 Delivery O2 Flow Rate FiO2 08/01/21 04:30 98.0 65 16 102/58 (73) 99 Room Air I&O- Last 24 Hours up to 6 AM 08/01/21 06:00 Intake Total 1150 ml Balance 1150 ml GME ATTESTATION GME ATTESTATION My faculty preceptor for this patient encounter was physically present during the encounter and was fully available. All aspects of the patient interview, examination, medical decision making process, and medical care plan development were reviewed and approved by the faculty preceptor. The faculty preceptor is aware and concurs with the plan as stated in the body of this note and will attest to such by his/her cosignature. MELBA TRAYLOR OMS-3 Aug 01, 2021 10:10
[2021-08-01 14:00] VITALS: BP 106/60
--- NOTE | 2021-08-01 16:10 | IPNPDOC ---
Text Note Date of Service 08/01/2021 NOTE Subjective: Regina Cheng was admitted last night due to pyelonephritis. Overnight patient describes severe right flank pain and suprapubic tenderness that has not gone away. Has been experiencing shortness of breath, and new onset urge incontinence, patient describes intense urge to use restroom but has difficulty getting there in time. Flank pain rated as "11"/10. Has urinated twice since adm ission. The ketorolac has helped with her pain. ROS; - HEENT: Positive for headaches - Cardiac: Denies chest pain - Respiratory: Describes SOB at rest since her symptoms began. - GI: describes lower abdominal pain that radiates to flank, patient localized to RLQ. Suprapubic pain. - Musculoskeletal: Right flank pain extending to abdomen - Extremities: Sensation intact, no lymphedema noted. - Genitourinary: Urinary urge incontinence, denies dysuria. Objective: - General: Patient was cold, wrapped in multiple blankets, asking for pain relief. - HEENT: Normocephalic, moist mucous membranes, no conjunctival effusion - Cardiac: No murmurs or palpitations, heart sounds normal. - Respiratory: CTA, no rales, rhonchi, or wheezing. - Abdominal: Suprapubic tenderness, RLQ pain upon palpation that radiates to right flank. - Neuro: Muscle strength 5/5 bilaterally, sensation intact. - MSK: CVA tenderness upon elicitation on the right Assessment: 25 year old female with a history of UTI's presents with cc of right flank pain and fever, CT findings suggestive of pyelonephritis and a fever of 103.8. Plan #. R sided flank pain / fevers - likely 2/2 Pyelonephritis - Flank and abdominal pain, urge incontinence and CVA tenderness - Continue treating with ceftriaxone IV (Day #2) and gentle hydration 80 ml/hr - Awaiting urine and blood cultures, may change antibiotics - Continue Ketorolac, acetaminophen and Zofran as needed - Urinary urge incontinence DVT prophylaxis - c/w TEDs/Sequentials VS,Fishbone, I+O VS, Fishbone, I+O Laboratory Tests 07/31/21 22:05 08/01/21 07:00 Vital Signs Date Time Temp Pulse Resp B/P (MAP) Pulse Ox O2 Delivery O2 Flow Rate FiO2 08/01/21 04:30 98.0 65 16 102/58 (73) 99 Room Air I&O- Last 24 Hours up to 6 AM 08/01/21 06:00 Intake Total 1150 ml Balance 1150 ml GME ATTESTATION GME ATTESTATION My faculty preceptor for this patient encounter was physically present during the encounter and was fully available. All aspects of the patient interview, examination, medical decision making process, and medical care plan development were reviewed and approved by the faculty preceptor. The faculty preceptor is aware and concurs with the plan as stated in the body of this note and will attest to such by his/her cosignature. ATTENDING NOTE I, Cherie Meléndez, have independently examined this patient and performed my own physical exam, as well as reviewed the documentation and edited where necessary with the resident. For medical students we have performed the physical exam together and discussed medical decision making and I have verified the history. I have discussed in detail with the resident / student the findings and plan of treatment as documented by the resident / student and edited their note. I agree with their findings and treatment plan and have edited their documentation. I will continue to follow the patient during this hospital stay. MELBA TRAYLOR OMS-3 Aug 01, 2021 16:10 CHERIE MELÉNDEZ MD Aug 01, 2021 16:13
--- NOTE | 2021-08-01 18:03 | IPNPDOC ---
Date Seen The patient was seen on 08/01/21. Progress Note pt seen and examined feels better than days past but still having flank pain denies dysuria and hematuria temp spikes noted, vss pt states she had pyelo in the past when current pyelo didn't begin with lower tract symptoms secondary to cystitis wbc and creatinine normal continue treatment of pyelo Rocephin cx's pending renal u/s tomorrow no plans to put stent in I explained to pt that pyelo resolves much slower than cystitis expect temp spikes at night, usually temp spikes are less and less as time goes on did my best to reassure pt will arrange for voiding cystogram as outpt when pt is no longer infected to r/o vur thank you [id number] VS, I&O, 24H, Roselia Vital Signs/I&O Vital Signs Date Time Temp Pulse Resp B/P (MAP) Pulse Ox O2 Delivery O2 Flow Rate FiO2 08/01/21 14:00 100.3 97 18 106/60 (75) 100 08/01/21 04:30 Room Air I&O- Last 24 Hours up to 6 AM 08/01/21 06:00 Intake Total 1150 ml Balance 1150 ml Laboratory Data 24H LABS Laboratory Tests 2 07/31/21 22:05: Neutrophils (%) (Auto) , Nucleated Red Blood Cells % (auto) 0.0, Neutrophils 71H, Band Neutrophils 5, Lymphocytes (Manual) 11L, Monocytes (Manual) 10H, Basophils (Manual) 1, Atypical Lymphocytes 2, Red Blood Cell Morphology NORMAL, Platelet Estimate NORMAL, Urine Color YELLOW, Urine Appearance CLEAR, Urine pH 7.0, Urine Specific [place] 1.004, Urine Protein NEGATIVE, Urine Glucose (UA) NEGATIVE, Urine Ketones NEGATIVE, Urine Blood NEGATIVE, Urine Nitrite NEGATIVE, Urine Bilirubin NEGATIVE, Urine Urobilinogen 2.0H, Urine Leukocyte Esterase TRACEH, Urine WBC (Auto) 3, Urine RBC (Auto) 1, Urine Hyaline Casts (Auto) 0, Urine Bacteria (Auto) NEGATIVE, Urine Squamous Epithelial Cells 0, Urine Sperm (Auto) , Anion Gap 9, Glomerular Filtration Rate > 60.0, Lactic Acid Level 0.8, Calcium Level 7.7L, Magnesium Level 2.1, Total Bilirubin 0.4, Direct Bilirubin 0.2, Aspartate Amino Transf (AST/SGOT) 51H, Alanine Aminotransferase (ALT/SGPT) 29, Alkaline Phosphatase 143H, Total Protein 6.1L, Albumin 2.4L, Albumin/Globulin Ratio 0.6L, Lipase 119, Coronavirus (COVID-19)(PCR) NEGATIVE, Influenza Type A (RT-PCR) NEGATIVE, Influenza Type B (RT-PCR) NEGATIVE, Respiratory Syncytial Virus (PCR) NEGATIVE 07/31/21 22:27: POC Beta HCG, Quantitative < 5.0 07/31/21 23:15: POC Glucose (Misc Panel) 103, POC Sodium (Misc Panel) 134L, POC Potassium (Misc Panel) 2.7*L, POC Chloride (Misc Panel) 97L, POC Total CO2 (Misc Panel) 23.0, POC Blood Urea Nitrogen (Misc Panel 4L, POC Ionized Calcium (Misc Panel) 4.4L, POC Creatinine (Misc Panel) 0.8, POC Hematocrit (Misc Panel) 31.0L 08/01/21 02:03: Chlamydia trachomatis DNA (WISAM) NEGATIVE, Neisseria gonorrhoeae DNA (WISAM) NEGAT SELENA, Trichomonas vaginalis (PCR) NOT DETECTED 08/01/21 07:00: Neutrophils (%) (Auto) , Nucleated Red Blood Cells % (auto) 0.0, Neutrophils 72H, Lymphocytes (Manual) 15L, Monocytes (Manual) 11H, Atypical Lymphocytes 2, Anisocytosis 1+, Platelet Estimate NORMAL, Anion Gap 7L, Glomerular Filtration Rate > 60.0, Lactic Acid Level 1.5, Calcium Level 7.8L, Total Bilirubin 0.3, Aspartate Amino Transf (AST/SGOT) 31, Alanine Aminotransferase (ALT/SGPT) 24, Alkaline Phosphatase 117, Total Protein 6.3L, Albumin 2.1L, Albumin/Globulin Ratio 0.5L CBC/BMP Laboratory Tests 07/31/21 22:05 08/01/21 07:00 Microbiology Microbiology 07/31/21 Urine Culture, Received Pending 07/31/21 Blood Culture, Received Pending 07/31/21 Blood Culture, Received Pending CAMDEN CHAMBERS MD Aug 01, 2021 18:03
--- NOTE | 2021-08-01 18:40 | REP ---
INDICATION: r/o hydronephrosis. COMPARISON: None. TECHNIQUE: Ultrasound evaluation of both kidneys in the urinary bladder was performed. FINDINGS: The right kidney measures 13.5 x 5.6 x 5.2 cm in the left kidney measures 11.9 x 6.8 x 6.1 cm. The renal parenchymal echogenicity is normal. There are no focal abnormalities. There is no hydronephrosis. The urinary bladder appears unremarkable. Bilateral ureteral jets were identified. IMPRESSION: Normal ultrasound evaluation of the kidneys and urinary bladder. <Electronically signed by Eder Jeffrey > 08/01/21 [id number]
[2021-08-01 22:00] VITALS: BP 105/58
[2021-08-02] MEDS: ONDANSETRON 4MG/2ML VIAL IV PRN (05:02)
[2021-08-02] MEDS: cefTRIAXone SOD 1 GM in D5W MINI-BAG PLUS 50 ML IV SCH (05:03)
[2021-08-02] MEDS: KETOROLAC 30 MG/ML 1ML VIAL IV PRN (05:03)
[2021-08-02 06:00] VITALS: BP 108/63
[2021-08-02 06:18] LABS: BASO % 0.1 % (0.0-1.0); EOS % 0.5 % (0.0-3.0); HEMATOCRIT 28.1 % (36.0-47.0); HEMOGLOBIN 9.4 g/dl (12.0-15.5); LYMPH # 1.1 10^3/uL (1.5-5.0); LYMPH % 14.4 % (24.0-44.0); MEAN CORPUSCULAR HEMOGLOBIN 28.6 pg (27.0-33.0); MEAN CORPUSCULAR HGB CONC 33.5 g/dl (32.0-36.5); MEAN CORPUSCULAR VOLUME 85.4 fl (80.0-96.0); MONO % 13.5 % (2.0-8.0); NEUTROPHILS # 5.2 10^3/uL (1.5-8.5); NEUTROPHILS % 70.5 % (36.0-66.0); PLATELET COUNT, AUTOMATED 206 10^3/uL (150-450); RED BLOOD COUNT 3.29 10^6/uL (4.00-5.40); WHITE BLOOD COUNT 7.3 10^3/uL (4.0-10.0)
[2021-08-02 06:39] LABS: ALBUMIN 2.2 GM/DL (3.2-5.2); ALT/SGPT 31 U/L (12-78); BILIRUBIN,TOTAL 0.3 MG/DL (0.2-1.0); BLOOD UREA NITROGEN 7 MG/DL (7-18); CALCIUM LEVEL 7.8 MG/DL (8.5-10.1); CARBON DIOXIDE LEVEL 25 MEQ/L (21-32); CHLORIDE LEVEL 105 MEQ/L (98-107); CREATININE FOR GFR 0.66 MG/DL (0.55-1.30); GLOMERULAR FILTRATION RATE > 60.0 (>60); GLUCOSE, FASTING 112 MG/DL (70-100); POTASSIUM SERUM 3.3 MEQ/L (3.5-5.1); SODIUM LEVEL 140 MEQ/L (136-145); TOTAL PROTEIN 5.8 GM/DL (6.4-8.2)
[2021-08-02] MEDS ORDERED: POTASSIUM CHLORIDE 10MEQ SR TABLET PO ONE (09:00)
--- NOTE | 2021-08-02 09:06 | IPNPDOC ---
Date Seen The patient was seen on 08/02/21. Progress Note tmax yesterday 100.3 t today 99.5 vss wbc normal renal us yesterday shows no hydro cx neg no new gu thoughts treat pyelo VS, I&O, 24H, Fishbone Vital Signs/I&O Vital Signs Date Time Temp Pulse Resp B/P (MAP) Pulse Ox O2 Delivery O2 Flow Rate FiO2 08/02/21 06:00 99.5 81 19 108/63 (78) 100 Room Air I&O- Last 24 Hours up to 6 AM 08/02/21 06:00 Intake Total 2140 ml Output Total 2750 ml Balance -610 ml Laboratory Data 24H LABS Laboratory Tests 2 08/02/21 05:47: Immature Granulocyte % (Auto) 1.0, Neutrophils (%) (Auto) 70.5H, Lymphocytes (%) (Auto) 14.4L, Monocytes (%) (Auto) 13.5H, Eosinophils (%) (Auto) 0.5, Basophils (%) (Auto) 0.1, Neutrophils # (Auto) 5.2, Lymphocytes # (Auto) 1.1L, Monocytes # (Auto) 1.0H, Eosinophils # (Auto) 0.0, Basophils # (Auto) 0.0, Nucleated Red Blood Cells % (auto) 0.0, Anion Gap 10, Glomerular Filtration Rate > 60.0, Calcium Level 7.8L, Total Bilirubin 0.3, Aspartate Amino Transf (AST/SGOT) 47H, Alanine Aminotransferase (ALT/SGPT) 31, Alkaline Phosphatase 153H, Total Protein 5.8L, Albumin 2.2L, Albumin/Globulin Ratio 0.6L CBC/BMP Laboratory Tests 08/02/21 05:47 Microbiology Microbiology 07/31/21 Urine Culture - Final, Complete 07/31/21 Blood Culture - Preliminary, Resulted No growth after 24 hours . All specim... 07/31/21 Blood Culture - Preliminary, Resulted No growth after 24 hours . All specim... CAMDEN CHAMBERS MD Aug 02, 2021 09:06
[2021-08-02] MEDS: NS 1,000 ML IV SCH (09:11)
[2021-08-02] MEDS ORDERED: ACET1TAB55 PO (09:48)
[2021-08-02] MEDS ORDERED: LEVO750T13 PO (09:48)
[2021-08-02 14:00] VITALS: BP 108/63
--- NOTE | 2021-08-02 15:41 | DS.PDOC ---
Discharge Summary General Date of Admission Aug 01, 2021 at 02:02 Date of Discharge 08/02/2021 Discharge Summary PROCEDURES PERFORMED DURING STAY: [None]. ADMITTING DIAGNOSES / DISCHARGE DIAGNOSES: R sided flank pain / fevers - likely 2/2 Pyelonephritis DVT prophylaxis COMPLICATIONS/CHIEF COMPLAINT: R sided flank pain HISTORY OF PRESENT ILLNESS: Patient is a 25-year-old female without a significant PMHx who presented to the ER with right-sided back pain that radiates to work her groin. Upon arrival to ER, patient had imaging that was consistent with pyelonephritis. Patient was initially in the ER a few days earlier and was given Ciprofloxacin without any resolution of her symptoms. Patient was admitted to the hospitalist service for further evaluation and treatment. Patient was seen and examined at the bedside. Currently, she reports that her pain has had significant improvement. Her fevers have subsided reported some nausea this morning that has resolved with Zofran. She denies any chest pain, shortness breath or cough. No abdominal discomfort or diarrhea noted. HOSPITAL COURSE: R sided flank pain / fevers - likely 2/2 Pyelonephritis - Patient has reported significant improvement compared to yesterday - Patient is hemodynamically stable and has been afebrile over the last 24 hours - Physical reveals mild right CVA tenderness - Urine culture / Blood culture 07/28: Escherichia coli - Urine cultures / Blood cultures 07/31: No growth at 24 hours - Will DC Ceftriaxone; Will start Levofloxacin (Antibiotic day #3); will complete antibiotic course as an outpatient - Urology on consultation; appreciate their input - Will continue with Tramadol for pain control on discharge DVT prophylaxis - c/w TEDs/Sequentials DISCHARGE MEDICATIONS: Please see below. ALLERGIES: Please see below. PHYSICAL EXAMINATION ON DISCHARGE: Vitals (See below) General: Lying in bed, no acute distress, comfortable, AAOx3 HEENT: NC, AT CVS: RRR, +S1S2 Lungs: Fair air entry b/l, auscultation is without any rhonchi, rales or wheezing Abdomen: Soft, nondistended, nontender Extremities: - Edema, - Calf tenderness LABORATORY DATA: Please see below. IMAGING: CXR 07/31: No acute findings. CT abdomen / pelvis 07/31: 1. Right pyelonephritis and right ureteritis, with improvement in the right perinephric inflammatory changes since the CT abdomen and pelvis on 07/28/2021. 2. Mild right hydroureteronephrosis. No calculi in the renal collecting systems, ureters, or urinary bladder. 3. Hepatomegaly. 4. Small fat containing umbilical hernia. Renal US 08/01: Normal ultrasound evaluation of the kidneys and urinary bladder. ACTIVITY: [As tolerated]. DISCHARGE PLAN: Follow-up with primary care provider, and urology within the next 7 days Remain compliant with treatment plan and medications Return to the ER if you experience any problems DISPOSITION: Home DISCHARGE CONDITION: [Stable]. TIME SPENT ON DISCHARGE: 35 minutes. Vital Signs/I&Os Vital Signs Date Time Temp Pulse Resp B/P (MAP) Pulse Ox O2 Delivery O2 Flow Rate FiO2 08/02/21 14:00 97.6 79 17 108/63 (78) 100 Room Air I&O- Last 24 Hours up to 6 AM 08/02/21 06:00 Intake Total 2140 ml Output Total 2750 ml Balance -610 ml Laboratory Data Labs 24H Laboratory Tests 2 08/02/21 05:47: Immature Granulocyte % (Auto) 1.0, Neutrophils (%) (Auto) 70.5H, Lymphocytes (%) (Auto) 14.4L, Monocytes (%) (Auto) 13.5H, Eosinophils (%) (Auto) 0.5, Basophils (%) (Auto) 0.1, Neutrophils # (Auto) 5.2, Lymphocytes # (Auto) 1.1L, Monocytes # (Auto) 1.0H, Eosinophils # (Auto) 0.0, Basophils # (Auto) 0.0, Nucleated Red Blood Cells % (auto) 0.0, Anion Gap 10, Glomerular Filtration Rate > 60.0, Calcium Level 7.8L, Total Bilirubin 0.3, Aspartate Amino Transf (AST/SGOT) 47H, Alanine Aminotransferase (ALT/SGPT) 31, Alkaline Phosphatase 153H, Total Protein 5.8L, Albumin 2.2L, Albumin/Globulin Ratio 0.6L CBC/BMP Laboratory Tests 08/02/21 05:47 Microbiology Microbiology 07/31/21 Urine Culture - Final, Complete 07/31/21 Blood Culture - Preliminary, Resulted No growth after 24 hours . All specim... 07/31/21 Blood Culture - Preliminary, Resulted No growth after 24 hours . All specim... Discharge Medications Scheduled Levofloxacin (Levofloxacin) 750 Mg Tablet, 750 MG PO DAILY Scheduled PRN Acetaminophen (Acetaminophen) 325 Mg Tablet, 650 MG PO Q4H PRN for MILD PAIN or TEMP > 101 Tramadol HCl (Tramadol HCl) 50 Mg Tablet, 50 MG PO Q6H PRN for MODERATE/SEVERE PAIN (PS 5-10), (Reported) Allergies Coded Allergies: No Known Allergies (Unverified , 04/20/19) DAVID MELÉNDEZ MD Aug 02, 2021 15:41
== END 2021-08-02 15:30 | disposition home or self-care (01) | DRG 690 ==
LOC: M ED 20:26 → M ED INP 08-01 02:02 → ENRESERV 08-01 03:05 → M MSPAV 08-01 03:26
PROVIDERS: ADMIT Family Medicine; ATTEND Internal Medicine
DX: N10 Acute pyelonephritis (principal); E87.6 Hypokalemia; Z66 Do not resuscitate

== ENCOUNTER → 2021-07-31 | Outpatient (CLI) | payer OTHER ==
[~2021-07-31] MED LIST changes: +CIPR-249 PO; +CIPR250T3 PO; +TRAM50TA2 PO
[2021-07-31 16:16] LABS: BASO % 0.2 % (0.0-1.0); EOS % 0.2 % (0.0-3.0); HEMATOCRIT 35.3 % (36.0-47.0); HEMOGLOBIN 11.5 g/dl (12.0-15.5); LYMPH # 0.5 10^3/uL (1.5-5.0); LYMPH % 10.9 % (24.0-44.0); MEAN CORPUSCULAR HEMOGLOBIN 28.3 pg (27.0-33.0); MEAN CORPUSCULAR HGB CONC 32.6 g/dl (32.0-36.5); MEAN CORPUSCULAR VOLUME 86.9 fl (80.0-96.0); MONO # 0.4 10^3/uL (0.0-0.8); MONO % 9.3 % (2.0-8.0); NEUTROPHILS # 3.4 10^3/uL (1.5-8.5); NEUTROPHILS % 78.5 % (36.0-66.0); PLATELET COUNT, AUTOMATED 199 10^3/uL (150-450); RED BLOOD COUNT 4.06 10^6/uL (4.00-5.40); WHITE BLOOD COUNT 4.4 10^3/uL (4.0-10.0)
[2021-07-31 16:42] LABS: ALBUMIN 2.7 GM/DL (3.2-5.2); ALT/SGPT 31 U/L (12-78); BILIRUBIN,DIRECT 0.2 MG/DL (0.0-0.2); BILIRUBIN,TOTAL 0.4 MG/DL (0.2-1.0); BLOOD UREA NITROGEN 7 MG/DL (7-18); CALCIUM LEVEL 8.3 MG/DL (8.5-10.1); CARBON DIOXIDE LEVEL 29 MEQ/L (21-32); CHLORIDE LEVEL 103 MEQ/L (98-107); CREATININE FOR GFR 0.82 MG/DL (0.55-1.30); GLOMERULAR FILTRATION RATE > 60.0 (>60); GLUCOSE, FASTING 112 MG/DL (70-100); MAGNESIUM LEVEL 2.5 MG/DL (1.8-2.4); POTASSIUM SERUM 3.2 MEQ/L (3.5-5.1); SODIUM LEVEL 138 MEQ/L (136-145); TOTAL PROTEIN 6.6 GM/DL (6.4-8.2)
== END ==
LOC: M PLALAB 13:14
PROVIDERS: ATTEND Physician Assistant
DX: N39.0 Urinary tract infection, site not specified (principal); E87.6 Hypokalemia

== ENCOUNTER → 2021-08-21 | Outpatient (CLI) | payer OTHER ==
[~2021-08-21] MED LIST changes: +CIPR250T3 PO; +LEVO750T13 PO; +TRAM50TA2 PO
[2021-08-21 13:06] LABS: BASO % 0.4 % (0.0-1.0); EOS # 0.1 10^3/uL (0.0-0.5); EOS % 1.2 % (0.0-3.0); HEMATOCRIT 37.2 % (36.0-47.0); HEMOGLOBIN 11.9 g/dl (12.0-15.5); LYMPH # 1.7 10^3/uL (1.5-5.0); LYMPH % 34.6 % (24.0-44.0); MEAN CORPUSCULAR HEMOGLOBIN 28.4 pg (27.0-33.0); MEAN CORPUSCULAR VOLUME 88.8 fl (80.0-96.0); MONO # 0.5 10^3/uL (0.0-0.8); MONO % 9.9 % (2.0-8.0); NEUTROPHILS # 2.6 10^3/uL (1.5-8.5); NEUTROPHILS % 53.5 % (36.0-66.0); PLATELET COUNT, AUTOMATED 214 10^3/uL (150-450); RED BLOOD COUNT 4.19 10^6/uL (4.00-5.40); WHITE BLOOD COUNT 4.8 10^3/uL (4.0-10.0)
[2021-08-21 13:56] LABS: ALBUMIN 3.5 GM/DL (3.2-5.2); ALT/SGPT 8 U/L (12-78); BILIRUBIN,DIRECT 0.2 MG/DL (0.0-0.2); BILIRUBIN,TOTAL 0.6 MG/DL (0.2-1.0); BLOOD UREA NITROGEN 8 MG/DL (7-18); CARBON DIOXIDE LEVEL 27 MEQ/L (21-32); CHLORIDE LEVEL 108 MEQ/L (98-107); CREATININE FOR GFR 0.83 MG/DL (0.55-1.30); GLOMERULAR FILTRATION RATE > 60.0 (>60); GLUCOSE, FASTING 76 MG/DL (70-100); MAGNESIUM LEVEL 2.1 MG/DL (1.8-2.4); POTASSIUM SERUM 4.2 MEQ/L (3.5-5.1); SODIUM LEVEL 142 MEQ/L (136-145); TOTAL PROTEIN 7.5 GM/DL (6.4-8.2)
== END ==
LOC: M PLALAB 10:06
PROVIDERS: ATTEND Physician Assistant
DX: N39.0 Urinary tract infection, site not specified (principal); E87.6 Hypokalemia

== ENCOUNTER 2021-08-29 14:45 | Emergency (ER) | payer OTHER ==
[~2021-08-29] VITALS: Ht 160 cm; Wt 73.4 kg
[2021-08-29 14:46] VITALS: BP 132/78
[2021-08-29 17:05] LABS: BASO % 0.6 % (0.0-1.0); EOS # 0.1 10^3/uL (0.0-0.5); HEMATOCRIT 38.4 % (36.0-47.0); HEMOGLOBIN 12.6 g/dl (12.0-15.5); LYMPH # 2.3 10^3/uL (1.5-5.0); LYMPH % 31.8 % (24.0-44.0); MEAN CORPUSCULAR HEMOGLOBIN 28.6 pg (27.0-33.0); MEAN CORPUSCULAR HGB CONC 32.8 g/dl (32.0-36.5); MEAN CORPUSCULAR VOLUME 87.3 fl (80.0-96.0); MONO # 0.7 10^3/uL (0.0-0.8); MONO % 9.5 % (2.0-8.0); NEUTROPHILS % 56.8 % (36.0-66.0); PLATELET COUNT, AUTOMATED 259 10^3/uL (150-450); WHITE BLOOD COUNT 7.1 10^3/uL (4.0-10.0)
[2021-08-29 17:30] LABS: ALBUMIN 3.7 GM/DL (3.2-5.2); ALT/SGPT 11 U/L (12-78); BILIRUBIN,DIRECT 0.1 MG/DL (0.0-0.2); BILIRUBIN,TOTAL 0.3 MG/DL (0.2-1.0); BLOOD UREA NITROGEN 13 MG/DL (7-18); CALCIUM LEVEL 9.1 MG/DL (8.5-10.1); CARBON DIOXIDE LEVEL 28 MEQ/L (21-32); CHLORIDE LEVEL 108 MEQ/L (98-107); CREATININE FOR GFR 0.66 MG/DL (0.55-1.30); GLOMERULAR FILTRATION RATE > 60.0 (>60); GLUCOSE, FASTING 90 MG/DL (70-100); LIPASE 137 U/L (73-393); SODIUM LEVEL 140 MEQ/L (136-145); TOTAL PROTEIN 7.9 GM/DL (6.4-8.2)
== END 2021-08-29 19:48 | disposition left against medical advice (07) ==
LOC: M ED 14:45
DX: Z53.21 Procedure and treatment not carried out due to patient leaving prior to being seen by health care provider (principal)

== ENCOUNTER → 2021-08-30 | Outpatient (REF) | payer OTHER | LOC: M LAB REF 16:59 | PROVIDERS: ATTEND Family Medicine | DX: N23 Unspecified renal colic (principal) ==

== ENCOUNTER → 2021-10-02 | Outpatient (REF) | payer OTHER | LOC: M LAB REF 16:46 | PROVIDERS: ATTEND Physician Assistant | DX: J06.9 Acute upper respiratory infection, unspecified (principal) ==

== ENCOUNTER → 2021-11-21 | Outpatient (CLI) | payer OTHER ==
[2021-11-21 13:59] LABS: BASO % 0.7 % (0.0-1.0); EOS % 0.9 % (0.0-3.0); HEMOGLOBIN 12.4 g/dl (12.0-15.5); LYMPH # 1.4 10^3/uL (1.5-5.0); LYMPH % 32.4 % (24.0-44.0); MEAN CORPUSCULAR HEMOGLOBIN 27.8 pg (27.0-33.0); MEAN CORPUSCULAR HGB CONC 31.8 g/dl (32.0-36.5); MEAN CORPUSCULAR VOLUME 87.4 fl (80.0-96.0); MONO # 0.4 10^3/uL (0.0-0.8); MONO % 9.2 % (2.0-8.0); NEUTROPHILS # 2.5 10^3/uL (1.5-8.5); NEUTROPHILS % 56.6 % (36.0-66.0); PLATELET COUNT, AUTOMATED 248 10^3/uL (150-450); RED BLOOD COUNT 4.46 10^6/uL (4.00-5.40); WHITE BLOOD COUNT 4.5 10^3/uL (4.0-10.0)
[2021-11-21 14:40] LABS: ALT/SGPT 11 U/L (12-78); BILIRUBIN,TOTAL 0.4 MG/DL (0.2-1.0); BLOOD UREA NITROGEN 16 MG/DL (7-18); CALCIUM LEVEL 9.3 MG/DL (8.5-10.1); CARBON DIOXIDE LEVEL 29 MEQ/L (21-32); CHLORIDE LEVEL 107 MEQ/L (98-107); FREE T4 0.93 NG/DL (0.76-1.46); GLOMERULAR FILTRATION RATE > 60.0 (>60); GLUCOSE, FASTING 87 MG/DL (70-100); POTASSIUM SERUM 4.7 MEQ/L (3.5-5.1); SODIUM LEVEL 139 MEQ/L (136-145); TOTAL PROTEIN 7.8 GM/DL (6.4-8.2); VITAMIN B12 LEVEL 381 PG/ML
[2021-11-22 23:16] LABS: ANA (HEP2) Positive (.); TESTOSTERONE FREE (DIRECT) 2.4 pg/mL (0.0-4.2)
== END ==
LOC: M PLALAB 09:18
PROVIDERS: ATTEND Physician Assistant
DX: L65.9 Nonscarring hair loss, unspecified (principal)

== ENCOUNTER → 2021-12-20 | Outpatient (CLI) | payer OTHER ==
[2021-12-20 13:55] LABS: C REACTIVE PROTEIN QUANTITATIV < 0.30 MG/DL (0.00-0.30); RHEUMATOID FACTOR QUANT < 10.0 IU/ML (<15.0)
[2021-12-20 14:04] LABS: THYROID PEROXIDASE ANTIBODY 44.1 U/ML (<60.0)
== END ==
LOC: M PLALAB 11:09
PROVIDERS: ATTEND Physician Assistant
DX: R76.0 Raised antibody titer (principal); L65.9 Nonscarring hair loss, unspecified

== ENCOUNTER → 2022-05-23 | Outpatient (REF) ==
[~2022-05-23] MED LIST changes: +LEVO1TAB40 PO; -LEVO750T13 PO
[2022-05-25 06:08] LABS: RUBEOLA IgG ANTIBODY 88.9 AU/mL (Immune >16.4)
== END ==
LOC: M LAB 13:41
PROVIDERS: ATTEND Nurse Practitioner Adult Health
DX: Z11.59 Encounter for screening for other viral diseases (principal)

== ENCOUNTER 2022-07-01 00:26 | Emergency (ER) | payer OTHER ==
[~2022-07-01] VITALS: Ht 160 cm; Wt 72.7 kg
[2022-07-01 00:28] VITALS: BP 120/76
== END 2022-07-01 03:40 | disposition left against medical advice (07) ==
LOC: M ED 00:26
DX: Z53.21 Procedure and treatment not carried out due to patient leaving prior to being seen by health care provider (principal)

== ENCOUNTER → 2023-10-15 | Outpatient (REF) | payer OTHER | LOC: M LAB REF 17:03 | PROVIDERS: ATTEND Physician Assistant | DX: M54.59 Other low back pain (principal) ==